=== PATIENT | female | born 1960 | race Caucasian/White ===

== ENCOUNTER 2016-10-06 23:50 | Observation (INO) | payer OTHER ==
[2016-10-07] VITALS: BMI 30.9
--- NOTE | 2016-10-07 00:30 | PDOC ---
History of Present Illness - General Chief Complaint: Syncope/Near Syncope Stated Complaint: SYNCOPE Time Seen by Provider: 10/06/16 23:58 History Source: Patient Exam Limitations: No Limitations - History of Present Illness Initial Comments: 10/07/16 02:30 56-year-old female with a history of asthma, [place], CVA, COPD, borderline diabetes , and hypertension biba with her daughter who states patient had a witnessed syncopal episode by her son which lasted approximately 15-30 seconds. Patient states while she was sitting on a chair and talking to her son, she felt dizzy/( room spinning) which caused a syncopal episode. Patient cannot recollect a syncopal episode but denies any fever, chills, nausea/vomiting, diarrhea, neck pains, headache, lightheadedness, weakness, chest pain, shortness of breath, abdominal pains, extremity numbness or tingling sensation. Presenting Symptoms: Dizziness, Syncope Past History - Past Medical History Allergies/Adverse Reactions: Allergies Allergy/AdvReac Type Severity Reaction Status Date / Time No Known Allergies Allergy Verified 10/07/16 00:01 Home Medications: Ambulatory Orders Aspirin 325 mg PO DAILY 11/22/12 Simvastatin [Zocor -] 20 mg PO HS 11/22/12 Beclomethasone Dipropionate [Qvar] 8.7 gm IH BID 03/24/14 Tiotropium [place] [Spiriva] 1 inh PO DAILY 03/24/14 Metoprolol Succinate [Toprol Xl] 50 mg PO DAILY 01/09/16 Albuterol 0.083% Nebulizer Janina [Ventolin 0.083% Nebulizer Soln -] 1 neb NEB Q6H #30 vial 01/10/16 Albuterol Sulfate Inhaler - [Ventolin HFA Inhaler -] 2 inh IH Q6H #1 inh Asthma: Yes Cardiac Disorders: Yes ([place]) CVA: Yes COPD: Yes Diabetes: Yes (BORDERLINE) HTN: Yes - Surgical History Abdominal Surgery: No Appendectomy: No Cardiac Surgery: No Cholecystectomy: No - Psycho/Social/Smoking Cessation Hx Anxiety: No Suicidal Ideation: No Smoking Status: Yes Smoking History: Former smoker Have you smoked in the past 12 months: Yes Number of Cigarettes Smoked Daily: 0 If you are a former smoker, when did you quit?: 6 months ago Information on smoking cessation initiated: No Hx Alcohol Use: No Drug/Substance Use Hx: No Substance Use Type: None Hx Substance Use Treatment: No Review of Systems - Review of Systems Able to Perform ROS?: Yes Comments:: 10/07/16 02:34 CONSTITUTIONAL: Absent: fever, chills, diaphoresis, generalized weakness, malaise, loss of appetite HEENT: Absent: rhinorrhea, nasal congestion, throat pain, throat swelling, difficulty swallowing, mouth swelling, ear pain, eye pain, visual Changes CARDIOVASCULAR: Absent: chest pain, loss of consciousness, palpitations, irregular heart rate, peripheral edema RESPIRATORY: Absent: cough, shortness of breath, dyspnea with exertion, orthopnea, wheezing, stridor, hemoptysis GASTROINTESTINAL: Absent: abdominal pain, abdominal distension, nausea, vomiting, diarrhea, constipation, melena, hematochezia GENITOURINARY: Absent: dysuria, frequency, urgency, hesitancy, hematuria, flank pain, genital pain MUSCULOSKELETAL: Absent: myalgia, arthralgia, joint swelling SKIN: Absent: rash, itching, pallor HEMATOLOGIC/IMMUNOLOGIC: Absent: easy bleeding, easy bruising, lymphadenopathy, frequent infections ENDOCRINE: Absent: unexplained weight gain, unexplained weight loss, heat intolerance, cold intolerance NEUROLOGIC: Absent: headache, focal weakness or paresthesias, dizziness, unsteady gait, seizure, mental status changes, bladder or bowel incontinence PSYCHIATRIC: Absent: anxiety, depression, suicidal or homicidal ideation, hallucinations. \ Is the patient limited Indonesian proficient: No *Physical Exam - Vital Signs Last Vital Signs Temp Pulse Resp BP Pulse Ox 98 F 83 18 97/61 95 10/06/16 23:59 10/07/16 02:35 10/07/16 02:35 10/07/16 02:35 10/07/16 02:35 - Physical Exam Comments: 10/07/16 02:36 GENERAL: Well developed, well nourished. Awake and alert. No acute distress. HEENT: Normocephalic, atraumatic. PERRLA, EOMI. No conjunctival pallor. Sclera are non- icteric. Moist mucous membranes. Oropharynx is clear. NECK: Supple. Full ROM. No JVD. Carotid pulses 2+ and symmetric, without bruits. No thyromegaly. No lymphadenopathy. CARDIOVASCULAR: Regular rate and rhythm. No murmurs, rubs, or gallops. Distal pulses are 2+ and symmetric. PULMONARY: No evidence of respiratory distress. Lungs clear to auscultation bilaterally. No wheezing, rales or rhonchi. ABDOMINAL: Soft. Non-tender. Non-distended. No rebound or guarding. No organomegaly. Normoactive bowel sounds. MUSCULOSKELETAL Normal range of motion at all joints. No bony deformities or tenderness. No CVA tenderness. EXTREMITIES: No cyanosis. No clubbing. No edema. No calf tenderness. SKIN: Warm and dry. Normal capillary refill. No rashes. No jaundice. NEUROLOGICAL: Alert, awake, appropriate. Cranial nerves 2-12 intact. No deficits to light touch and temperature in face, upper extremities and lower extremities. No motor deficits in the in face, upper extremities and lower extremities. Normoreflexic in the upper and lower extremities. Normal speech. Toes are down- going bilaterally. Gait is normal without ataxia. PSYCHIATRIC: Cooperative. Good eye contact. Appropriate mood and affect. Heart Score/ECG Review - History History: Slightly suspicious - Electrocardiogram EKG: Normal - Age Age: >/= 65 - Risk Factors Based on the list above the patient has:: No risk factors known - Troponin Troponin: </= normal limit - Score Heart Score - Total: 2 ED Treatment Course - LABORATORY CBC & Chemistry Diagram: 10/07/16 00:30 10/07/16 00:30 - ADDITIONAL ORDERS Additional order review: Laboratory Results 10/07/16 00:30 Sodium 140 Potassium 4.0 Chloride 105 Carbon Dioxide 24 Anion Gap 11 BUN 19 H D Creatinine 1.2 H D Creat Clearance w eGFR 46.82 Random Glucose 117 H Calcium 8.4 L Total Bilirubin 0.4 D AST 11 L D ALT 19 Alkaline Phosphatase 152 H Creatine Kinase 53 Troponin I < 0.02 Total Protein 6.4 Albumin 3.5 10/07/16 00:30 RBC 4.97 MCV 88.2 MCHC 32.7 RDW 14.3 MPV 8.4 Neutrophils % 73.5 Lymphocytes % 17.7 Monocytes % 7.2 Eosinophils % 1.0 Basophils % 0.6 - RADIOLOGY Radiology Studies Ordered: Category Date Time Status HEAD CT WITHOUT CONTRAST [CT] Stat CT Scan 10/07/16 00:30 Taken CHEST PA & LAT [RAD] Stat Radiology 10/07/16 00:38 Taken Radiograph Interpretation: 10/07/16 01:41 CT head w/o contrast: Normal brain. No acute intracranial abnormality. No hemorrhage. No visible infarct or mass. Osseous structures are intact. - Medications Given in the ED: ED Medications Discontinued Medications Generic Name Dose Route Start Last Admin Trade Name Freq PRN Reason Stop Dose Admin Sodium Chloride 1,000 mls @ 1,000 mls/hr 10/07/16 01:42 10/07/16 01:00 Normal Saline - IV 10/07/16 02:41 1,000 mls/hr ASDIR STA Administration Progress Note - Progress Note Progress Note: 0235hrs: Microblogged Hospitalist/ will consult for observation admit Pt's PMD is Dr. Jen Day. Does not have privileges here *DC/Admit/Observation/Transfer Diagnosis at time of Disposition: Syncope Qualifiers: Syncope type: unspecified Qualified Code(s): R55 - Syncope and collapse - Discharge Dispostion Condition at time of disposition: Guarded Admit: Yes Decision to Admit order Date/Time: Decision to Admit Order Category Date Time Status Decision to Admit to Hospital Routine Admission 10/07/16 03:51 Active
[2016-10-07 00:42] LABS: BASOPHIL 0.6 % (0-2.0); MCH 28.8 pg (25.7-33.7); MCHC 32.7 g/dl (32.0-36.0); MEAN CELL VOLUME 88.2 fl (80-96); MEAN PLT VOLUME 8.4 fl (7.5-11.1); NEUTROPHILS 73.5 % (42.8-82.8); PLATELET COUNT 283 K/MM3 (134-434); RDW 14.3 % (11.6-15.6)
--- NOTE | 2016-10-07 01:02 | PDOC ---
*Physical Exam - Vital Signs Last Vital Signs Temp Pulse Resp BP Pulse Ox 98 F 95 H 20 102/68 99 10/06/16 23:59 10/06/16 23:59 10/06/16 23:59 10/06/16 23:59 10/06/16 23:59 Heart Score/ECG Review #1 ECG reviewed & interpreted by me at: 01:01 General ECG Interpretation: Sinus Rhythm, Normal Rate, Normal Intervals, No acute ischemic changes ED Treatment Course - LABORATORY CBC & Chemistry Diagram: 10/07/16 10:20 10/07/16 10:20 - ADDITIONAL ORDERS Additional order review: 10/07/16 00:30 RBC 4.97 MCV 88.2 MCHC 32.7 RDW 14.3 MPV 8.4 Neutrophils % 73.5 Lymphocytes % 17.7 Monocytes % 7.2 Eosinophils % 1.0 Basophils % 0.6 Medical Decision Making - Medical Decision Making 10/07/16 01:01 56 yo F s/p syncopal event Pt seen by Midlevel Provider under my direct supervision Will do labs, EKG, CT Low threshold to admit *DC/Admit/Observation/Transfer Diagnosis at time of Disposition: Syncope - Discharge Dispostion Condition at time of disposition: Fair - Prescriptions
[2016-10-07 01:10] LABS: ALBUMIN 3.5 g/dl (3.4-5.0); ANION GAP 11 (8-16); BILIRUBIN,TOTAL 0.4 mg/dL (0.2-1.0); CALCIUM 8.4 mg/dL (8.5-10.1); CO2 24 mmol/L (21-32); COCKROFT - GAULT 67.1585; CREATININE 1.2 mg/dL (0.55-1.02); GLUCOSE,RANDOM 117 mg/dL (74-106); SGOT/AST 11 U/L (15-37); SGPT/ALT 19 U/L (12-78); TOT PROT 6.4 g/dl (6.4-8.2)
[2016-10-07 01:12] LABS: ALK PHOS 152 U/L (45-117); TROPONIN I < 0.02 ng/ml (0.00-0.05)
[2016-10-07] MEDS ORDERED: SODIUM CHLORIDE 1,000 ML IV STA (01:42)
[2016-10-07] MEDS ORDERED: ALBUTEROL SO4 0.083% IH SOL 2.5 MG/3 ML VIAL.NEB. NEB PRN (07:11)
--- NOTE | 2016-10-07 09:41 | HP ---
Admitting History and Physical - Primary Care Physician PCP: Carol Day - Admission Chief Complaint: syncope History of Present Illness: passed out. Hot day yesterday, was at a baseball game in afternoon. had one beer around 1 pm, little dinner. was sitting at the dining room table around 10 pm, got up to get some sprite from the fridge. became lightheaded, nauseated and felt like she was going to pass out. sat down again and slumped over, passed out for about 15 seconds. no seizure activities, no incontinence. denies chest pain palpitations or extremity weakness, numbness before or after. feels well now. in er low BP SBP 92 History Source: Patient Limitations to Obtaining History: No Limitations - Past Medical History Cardiovascular: Yes: HTN, Hyperlipdemia Pulmonary: Yes: COPD - Past Surgical History Additional Past Surgical History: right forearm nevus removal - Smoking History Smoking history: Former smoker Have you smoked in the past 12 months: Yes Aproximately how many cigarettes per day: 0 If you are a former smoker, when did you quit?: 6 months ago - Alcohol/Substance Use Hx Alcohol Use: Yes - Social History Usual Living Arrangement: Yes: With Child ADL: Independent History of Recent Travel: No Home Medications - Allergies Allergies/Adverse Reactions: Allergies Allergy/AdvReac Type Severity Reaction Status Date / Time No Known Allergies Allergy Verified 10/07/16 00:01 - Home Medications Home Medications: Ambulatory Orders Aspirin 325 mg PO DAILY 11/22/12 Simvastatin [Zocor -] 20 mg PO HS 11/22/12 Beclomethasone Dipropionate [Qvar] 8.7 gm IH BID 03/24/14 Tiotropium [place] [Spiriva] 1 inh PO DAILY 03/24/14 Metoprolol Succinate [Toprol Xl] 50 mg PO DAILY 01/09/16 Albuterol 0.083% Nebulizer Jan[place] [Ventolin 0.083% Nebulizer Soln -] 1 neb NEB Q6H #30 vial 01/10/16 Albuterol Sulfate Inhaler - [Ventolin HFA Inhaler -] 2 inh IH Q6H #1 inh Review of Systems - Review of Systems Constitutional: reports: No Symptoms Eyes: reports: No Symptoms HENT: reports: No Symptoms Neck: reports: No Symptoms Cardiovascular: reports: No Symptoms Respiratory: reports: No Symptoms Gastrointestinal: reports: No Symptoms Genitourinary: reports: No Symptoms Musculoskeletal: reports: No Symptoms Integumentary: reports: No Symptoms Neurological: reports: No Symptoms Endocrine: reports: No Symptoms Hematology/Lymphatic: reports: No Symptoms Psychiatric: reports: No Symptoms Physical Examination Vital Signs: Vital Signs Temperature 98 F 10/06/16 23:59 Pulse Rate 83 10/07/16 02:35 Respiratory Rate 18 10/07/16 02:35 Blood Pressure 97/61 10/07/16 02:35 O2 Sat by Pulse Oximetry (%) 95 10/07/16 02:35 Constitutional: Yes: Well Nourished, No Distress, Obese Eyes: Yes: Conjunctiva Clear, EOM Intact HENT: Yes: Normocephalic Neck: Yes: Trachea Midline Cardiovascular: Yes: Regular Rate and Rhythm. No: Murmur Respiratory: Yes: CTA Bilaterally Gastrointestinal: Yes: Normal Bowel Sounds, Soft Musculoskeletal: Yes: WNL Extremities: Yes: WNL Edema: No Peripheral Pulses WNL: Yes Neurological: Yes: WNL Labs: Laboratory Tests 10/07/16 10/07/16 00:30 00:30 WBC 13.0 H RBC 4.97 Hgb 14.3 Hct 43.8 MCV 88.2 MCHC 32.7 RDW 14.3 Plt Count 283 D MPV 8.4 Neutrophils % 73.5 Lymphocytes % 17.7 Monocytes % 7.2 Eosinophils % 1.0 Basophils % 0.6 Sodium 140 Potassium 4.0 Chloride 105 Carbon Dioxide 24 Anion Gap 11 BUN 19 H D Creatinine 1.2 H D Creat Clearance w eGFR 46.82 Random Glucose 117 H Calcium 8.4 L Total Bilirubin 0.4 D AST 11 L D ALT 19 Alkaline Phosphatase 152 H Creatine Kinase 53 Troponin I < 0.02 Total Protein 6.4 Albumin 3.5 Imaging - Results Chest X-ray: Report Reviewed EKG: Report Reviewed Problem List - Problems (1) Syncope Code(s): R55 - SYNCOPE AND COLLAPSE Qualifiers: Syncope type: vasovagal syncope Qualified Code(s): R55 - Syncope and collapse (2) Vaso vagal episode Code(s): R55 - SYNCOPE AND COLLAPSE (3) COPD (chronic obstructive pulmonary disease) Code(s): J44.9 - CHRONIC OBSTRUCTIVE PULMONARY DISEASE, UNSPECIFIED Qualifiers : COPD type: unspecified COPD Qualified Code(s): J44.9 - Chronic obstructive pulmonary disease, unspecified (4) HTN (hypertension) Code(s): I10 - ESSENTIAL (PRIMARY) HYPERTENSION Qualifiers: Hypertension type: essential hypertension Qualified Code(s): I10 - Essential (primary) hypertension Assessment/Plan sounds like vasovagal episode after hot day with mild dehydration received fluids in er with good results hold BP meds today resume lisinopril tomorrow if second set of card.enzymes normal; may dc home today with close f/up for echo with tomorrow am
[2016-10-07] MEDS ORDERED: ASPIRIN 325 MG TABLET PO SCH (10:00)
[2016-10-07 10:25] LABS: MCH 29.2 pg (25.7-33.7); MCHC 32.9 g/dl (32.0-36.0); MEAN CELL VOLUME 88.7 fl (80-96); MEAN PLT VOLUME 8.5 fl (7.5-11.1); PLATELET COUNT 264 K/MM3 (134-434); RDW 14.1 % (11.6-15.6); WHITE BLOOD COUNT 9.7 K/mm3 (4.0-10.0)
[2016-10-07 10:38] LABS: EOSINOPHIL 0.9 % (0-4.5)
[2016-10-07 10:58] LABS: ALBUMIN 3.7 g/dl (3.4-5.0); ANION GAP 7 (8-16); BILIRUBIN,TOTAL 0.6 mg/dL (0.2-1.0); CALCIUM 8.8 mg/dL (8.5-10.1); CO2 26 mmol/L (21-32); CREATININE 0.9 mg/dL (0.55-1.02); GLUCOSE,RANDOM 95 mg/dL (74-106); SGOT/AST 14 U/L (15-37); SGPT/ALT 17 U/L (12-78); TOT PROT 6.9 g/dl (6.4-8.2)
[2016-10-07 11:01] LABS: ALK PHOS 156 U/L (45-117); TROPONIN I < 0.02 ng/ml (0.00-0.05)
[2016-10-07 11:44] VITALS: BP 119/62; PULSE 83; TEMP 97.8
--- NOTE | 2016-10-08 00:08 | EKG ---
Test Reason : Blood Pressure : / mmHG Vent. Rate : 087 BPM Atrial Rate : 087 BPM P-R Int : 156 ms QRS Dur : 078 ms QT Int : 374 ms P-R-T Axes : 075 053 061 degrees QTc Int : 450 ms NORMAL SINUS RHYTHM NORMAL ECG WHEN COMPARED WITH ECG OF 09-JAN-2016 21:20, NO SIGNIFICANT CHANGE WAS FOUND Confirmed by ZAKIA MULTANI MD ([id number]) on 10/08/2016 12:08:22 AM Referred By: Confirmed By:ZAKIA MULTANI MD
== END 2016-10-07 11:45 | disposition home or self-care (01) ==
LOC: JER 23:50 → JERBED 10-07 03:51 → UNDOADMOB 10-07 04:01
PROVIDERS: ADMIT Internal Medicine; ATTEND Internal Medicine
PROC: 3E0337Z Introduction of Electrolytic and Water Balance Substance into Peripheral Vein, Percutaneous Approach (ICD-10-PCS; principal; 2016-10-07)
PROC: 3E0F7GC Introduction of Other Therapeutic Substance into Respiratory Tract, Via Natural or Artificial Opening (ICD-10-PCS; 2016-10-07)
DX: R55 Syncope and collapse (principal); J44.9 Chronic obstructive pulmonary disease, unspecified; I10 Essential (primary) hypertension; E78.5 Hyperlipidemia, unspecified; Z87.891 Personal history of nicotine dependence; Z79.82 Long term (current) use of aspirin; I25.2 Old myocardial infarction; Z86.73 Personal history of transient ischemic attack (TIA), and cerebral infarction without residual deficits; R73.03 Prediabetes
CPT/HCPCS: 36415; 70450-TC; 71020-TC; 80053; 82550; 84484; 85025; 93005; 93010; 99285-25; G0378

== ENCOUNTER 2017-04-18 22:42 | Observation (INO) | payer OTHER ==
[2017-04-18 23:06] VITALS: BMI 29.6
--- NOTE | 2017-04-18 23:09 | PDOC ---
History of Present Illness - General Chief Complaint: Injury Stated Complaint: Fall Time Seen by Provider: 04/18/17 22:54 - History of Present Illness Initial Comments: 04/18/17 23:28 The patient is a 57 year old female with a history of HTN, COPD, borderline diabetes who presents for evaluation following a syncopal episode. The patient is accompanied by her daughters who assist in providing the history. They report that the patient has been having "fainting spells" over the past several months in addition to the patient being more forgetful. They state that her symptoms are currently being worked up on an outpatient basis by her primary care provider. They state that the patient fell yesterday due to one of these "fainting spells" with head trauma noted. They did not go to the ER at that time for evaluation. She was seen by her outpatient docs today for a carotid doppler and echocardiogram which was reportedly normal. She is scheduled for MRI and possible EEG tomorrow. The daughters report that about 2 hours ago, the patient began complaining of seeing "fuzzy white spots" in her vision as well as bubbling of the window which prompting her presentation to the ED today. Her daughters report that throughout this episode, the patient appeared very pale. She denies fevers, chills, sob, chest pain, numbness, weakness, nausea, vomiting, abdominal pain, or changes with urination or bowel movements. Past History - Past Medical History Allergies/Adverse Reactions: Allergies Allergy/AdvReac Type Severity Reaction Status Date / Time No Known Allergies Allergy Verified 04/18/17 22:56 Home Medications: Ambulatory Orders Aspirin 325 mg PO DAILY 11/22/12 Simvastatin [Zocor -] 20 mg PO HS 11/22/12 Tiotropium [place] [Spiriva] 1 inh PO DAILY 03/24/14 Albuterol 0.083% Nebulizer Jan[place] [Ventolin 0.083% Nebulizer Soln -] 1 neb NEB Q6H #30 vial 01/10/16 Albuterol Sulfate Inhaler - [Ventolin HFA Inhaler -] 2 inh IH Q6H #1 inh Metoprolol Tartrate [Lopressor -] 50 mg PO BID 04/19/17 Salmeterol/Fluticasone [Advair 500Mcg/50Mcg] 1 inh PO BID 11/10/17 Zolpidem Tartrate [Ambien] 10 mg PO HS 04/19/17 Asthma: Yes Cardiac Disorders: Yes ([place]) CVA: Yes COPD: Yes Diabetes: Yes ([place]ORDER[place]) HTN: Yes - Surgical History Abdominal Surgery: No Appendectomy: No Cardiac Surgery: No Cholecystectomy: No - Suicide/Smoking/Psychosocial Hx Smoking Status: Yes Smoking History: Never smoked Have you smoked in the past 12 months: No Number of Cigarettes Smoked Daily: 0 If you are a former smoker, when did you quit?: 6 months ago Information on smoking cessation initiated: No Hx Alcohol Use: No Drug/Substance Use Hx: No Substance Use Type: None Hx Substance Use Treatment: No Review of Systems - Review of Systems Comments:: 04/18/17 23:35 Constitutional: No fevers, chills, fatigue, malaise HEENT: No Rhinorrhea, nasal congestion, visual changes Cardiovascular: Syncope. No chest pain, palpitations, lightheadedness Respiratory: No Cough, SOB, Hemoptysis, Gastrointestinal: No Abdominal pain, Nausea, Vomiting, Constipation, Diarrhea, Melena Genitourinary: No Dysuria, Frequency, Urgency, Hesitancy, Hematuria, Flank pain Musculoskeletal: No Myalgia, arthralgia Skin: No rashes, bruising, pallor Neurologic: No Headache, Dizziness, Numbness, Weakness, or Tingling Psychiatric: Visual hallucinations. No SI or HI *Physical Exam - Vital Signs Last Vital Signs Temp Pulse Resp BP Pulse Ox 97.9 F 108 H 18 126/50 99 04/18/17 22:54 04/18/17 22:54 04/18/17 22:54 04/18/17 22:54 04/18/17 22:54 - Physical Exam Comments: 04/18/17 23:39 General Appearance: Nourished. No Apparent Distress HEENT: EOMI, KELVIN. No Pharyngeal Erythema, Tonsillar Exudate, Tonsillar Erythema Neck: No Cervical Lymphadenopathy Respiratory/Chest: Lungs Clear, Normal Breath Sounds. No Crackles, Rales, Rhonchi, Wheezing Cardiovascular: Regular Rhythm, Regular Rate. No Murmur, Gallops, Rubs Gastrointestinal/Abdominal: Normal Bowel Sounds, Soft. No Guarding, Rebound, Tenderness Musculoskeletal: No CVA Tenderness Extremity: Normal Capillary Refill Integumentary: Normal Color, Dry, Warm Neurologic: bulk fluids handler II-XII NML intact, Fully Oriented, Alert, Normal Mood/Affect, Normal Response, Motor Strength 5/5. ED Treatment Course - LABORATORY CBC & Chemistry Diagram: 04/19/17 00:35 04/19/17 00:35 Medical Decision Making - Medical Decision Making 04/18/17 23:43 The patient is a 57 year old female with a history of HTN, COPD, borderline diabetes who presents for evaluation following a syncopal episode. Differential includes but is not limited to: Intracranial bleed, acs, fracture, infectious, metabolic derangement. Given the patient's recent history of a fall , we will obtain a head and neck CT to evaluate for intracranial process and fractures. The patient describes visual hallucinations which is concerning for a cerebral process and requires further evaluation. She states that she has MRI scheduled for tomorrow. However, given her syncopal episode we will obtain a cbc, cmp, troponin, ekg and chest plain film to evaluate for other etiologies. She will likely require observation admission given her concerning symptoms of visual hallucinations in the setting of a recent head trauma. We will continue to monitor and reassess. 04/19/17 01:38 Ct head and neck were negative for acute processes as preliminarily read by the supervisor aluminum fabrication radiologist pending official radiology read. CBC is unremarkable. Troponin is negative. We discussed the case with Dr. Day who agreed with observation admission and accepted the patient. We discussed the plan with the patient who voiced understanding and is agreeable. *DC/Admit/Observation/Transfer Diagnosis at time of Disposition: Syncope Qualifiers: Syncope type: unspecified Qualified Code(s): R55 - Syncope and collapse - Discharge Dispostion Condition at time of disposition: Stable Admit: Yes - Referrals - Patient Instructions - Post Discharge Activity
--- NOTE | 2017-04-18 23:27 | PDOC ---
Attending Attestation - Resident Resident Name: Qasim Garsia - ED Attending Attestation I have performed the following: I have examined & evaluated the patient, The case was reviewed & discussed with the resident, I agree w/resident's findings & plan, Exceptions are as noted - HPI HPI: 04/19/17 03:41 see below - Physicial Exam PE: 04/19/17 03:41 see below - Medical Decision Making 04/18/17 23:27 I, Dr. Stephanie Winn DO, attest that this document has been prepared under my direction and personally reviewed by me in its entirety. I further attest, that it accurately reflects all work, treatment, procedures and medical decision -making performed by me. 04/19/17 00:36 a/p: 57yo Female with 2 episodes of syncope, palpitations, now with visual hallucinations earlier tonight/confusion -labs, ct head, trop, ekg, cxr, ct cervical spine -has MRI scheduled for tomorrow -given recent hx of 2 syncopal episodes will need tele monitoring and observation for further eval. 04/19/17 00:56 Ct cervical spine is negative for acute fracture ct head: no acute intracranial findings <Stephanie Winn - Last Filed: 04/19/17 03:41> Discharge Disposition - Discharge Dispostion Last Admission D/C Date: 11/27/12 - Transfer to Acute Care Facility Transfer comment: 04/19/17 03:04 Documentation prepared by Letitia Mays, acting as resident medical officer for Stephanie Winn DO. <Letitia Mays - Last Filed: 04/19/17 02:54> <Stephanie Winn - Last Filed: 04/19/17 03:41> - Diagnosis Syncope Qualifiers: Syncope type: unspecified Qualified Code(s): R55 - Syncope and collapse - Discharge Dispostion Condition at time of disposition: Stable Heart Score/ECG Review - ECG Intrepretation Comment:: 04/19/17 00:38 sinus at 94, nl axis, nl interval, t wave inversions V1-2, no other acute changes <Stephanie Winn - Last Filed: 04/19/17 03:41> History of Present Illness - General History Source: Patient Exam Limitations: No Limitations - History of Present Illness Initial Comments: 04/19/17 02:58 The patient is a 57-year-old female, with a significant past medical history of HTN, COPD, borderline diabetes who was sent to the ED by her PCP, Dr. Shay Villarreal, for a workup for fainting spells x2. The patient had an echo yesterday that appeared to be normal. She has an MRI scheduled for today. She states that she syncopized while in the kitchen yesterday and hit her head in the left parietal region. She denies any loss of consciousness. Pt state that at the time of the incident she looked at the window and saw what she thought were white spots and "bubbling" of the window frame. The pt called her daughter to look at the window also but she did not see what her mom had seen. Pt was telling her daughter to clean her face because she had white spots. As per daughter, the patient has been more confused and disorientated lately. She has been experiencing slurred speech and she appears to be pale. The patient denies any fever, chills, nausea, vomiting, diarrhea, or abdominal pain. She denies any shortness of breath or chest pain. <Letitia Mays - Last Filed: 04/19/17 02:54> <Stephanie Winn - Last Filed: 04/19/17 03:41> - General Chief Complaint: Injury Stated Complaint: Fall Time Seen by Provider: 04/18/17 22:54 *Physical Exam - Vital Signs Last Vital Signs Temp Pulse Resp BP Pulse Ox 97.9 F 108 H 18 126/50 99 04/18/17 22:54 04/18/17 22:54 04/18/17 22:54 04/18/17 22:54 04/18/17 22:54 - Physical Exam Comments: 04/19/17 03:01 GENERAL: Awake, alert, and fully oriented, in no acute distress HEAD: No signs of trauma EYES: PERRLA, EOMI, sclera anicteric, conjunctiva clear ENT: Auricles normal inspection, hearing grossly normal, nares patent, oropharynx clear without exudates. Moist mucosa NECK: Normal ROM, supple, no lymphadenopathy, JVD, or masses LUNGS: Breath sounds equal, clear to auscultation bilaterally. No wheezes, and no crackles HEART: Regular rate and rhythm, normal S1 and S2, no murmurs, rubs or gallops ABDOMEN: Soft, nontender, normoactive bowel sounds. No guarding, no rebound. No masses EXTREMITIES: Normal range of motion, no edema. No clubbing or cyanosis. No cords, erythema, or tenderness NEUROLOGICAL: no visual hallucinations currently, 5/5 strength in the upper and lower extremities. Cranial nerves II through XII grossly intact. Normal speech, normal gait SKIN: Warm, Dry, normal turgor, no rashes or lesions noted <Letitia Mays - Last Filed: 04/19/17 02:54> *Review of Systems - Review of Systems Able to Perform ROS?: Yes Comments:: 04/19/17 02:56 GENERAL/CONSTITUTIONAL: No fever or chills. No weakness. HEAD, EYES, EARS, NOSE AND THROAT: No change in vision. No ear pain or discharge. No sore throat. CARDIOVASCULAR: No chest pain or shortness of breath. RESPIRATORY: No cough, wheezing, or hemoptysis. GASTROINTESTINAL: No nausea, vomiting, diarrhea or constipation. GENITOURINARY: No dysuria, frequency, or change in urination. MUSCULOSKELETAL: No joint or muscle swelling or pain. No neck or back pain. SKIN: No rash NEUROLOGIC: (+)Loss of consciousness, hallucinations, syncope. No headache, vertigo, or change in strength/sensation. ENDOCRINE: No increased thirst. No abnormal weight change. HEMATOLOGIC/LYMPHATIC: No anemia, easy bleeding, or history of blood clots. ALLERGIC/IMMUNOLOGIC: No hives or skin allergy. <Letitia Mays - Last Filed: 04/19/17 02:54>
[2017-04-19 00:49] LABS: BASOPHIL 0.6 % (0-2.0); EOSINOPHIL 0.9 % (0-4.5); MCH 29.5 pg (25.7-33.7); MCHC 33.9 g/dl (32.0-36.0); MEAN CELL VOLUME 86.9 fl (80-96); MEAN PLT VOLUME 9.3 fl (7.5-11.1); NEUTROPHILS 70.3 % (42.8-82.8); PLATELET COUNT 266 K/MM3 (134-434); RDW 14.3 % (11.6-15.6); WHITE BLOOD COUNT 10.6 K/mm3 (4.0-10.0)
[2017-04-19 00:54] LABS: URINE APPEARANCE SLCLOUDY; URINE BILIRUBIN NEGATIVE (NEGATIVE); URINE BLOOD 1+ (NEGATIVE); URINE COLOR YELLOW; URINE GLUCOSE (UA) NEGATIVE (NEGATIVE); URINE KETONE NEGATIVE (NEGATIVE); URINE NITRITE NEGATIVE (NEGATIVE); URINE PROTEIN NEGATIVE (NEGATIVE); URINE UROBILINOGEN NEGATIVE mg/dL (0.2-1.0)
[2017-04-19 01:13] LABS: CPK 157 IU/L (26-192); TROPONIN I < 0.02 ng/ml (0.00-0.05)
[2017-04-19 01:18] LABS: URINE BACTERIA FEW /hpf (NONE SEEN); URINE RBC 4; URINE WBC 15
[2017-04-19 01:38] LABS: ALBUMIN 3.7 g/dl (3.4-5.0); ANION GAP 12 (8-16); CALCIUM 8.6 mg/dL (8.5-10.1); CO2 21 mmol/L (21-32); CREATININE 0.8 mg/dL (0.55-1.02); GLUCOSE,RANDOM 100 mg/dL (74-106); SGPT/ALT 17 U/L (12-78)
[2017-04-19 01:40] LABS: ALK PHOS 128 U/L (45-117); BILIRUBIN,TOTAL 0.4 mg/dL (0.2-1.0)
[2017-04-19 01:51] LABS: SGOT/AST 15 U/L (15-37)
[2017-04-19 07:06] VITALS: BP 121/65; PULSE 81; TEMP 97.7
--- NOTE | 2017-04-19 08:48 | HP ---
Admitting History and Physical - Primary Care Physician PCP: Carol Day - Admission Chief Complaint: visual disturbance History of Present Illness: pt passed out 2 days ago on her kitchen floor-unprovoked, unclear etiology was dizzy afterwards, went to bed, woke up yesterday and went to see - had echo and carotid US-results pending but preliminarily unremarkable. when she went home she noted that things were "fuzzy", not blurry so she came to er to evaluate currently feels well, no problems denies alcohol or drug use, takes ambien daily for sleep History Source: Patient Limitations to Obtaining History: No Limitations - Past Medical History Cardiovascular: Yes: HTN, Hyperlipdemia Pulmonary: Yes: COPD (moderate-severe) - Smoking History Smoking history: Former smoker Have you smoked in the past 12 months: Yes Aproximately how many cigarettes per day: 0 If you are a former smoker, when did you quit?: 6 months ago - Alcohol/Substance Use Hx Alcohol Use: No - Social History ADL: Independent History of Recent Travel: No Home Medications - Allergies Allergies/Adverse Reactions: Allergies Allergy/AdvReac Type Severity Reaction Status Date / Time No Known Allergies Allergy Verified 04/18/17 22:56 - Home Medications Home Medications: Ambulatory Orders Aspirin 325 mg PO DAILY 11/22/12 Simvastatin [Zocor -] 20 mg PO HS 11/22/12 Tiotropium [place] [Spiriva] 1 inh PO DAILY 03/24/14 Albuterol 0.083% Nebulizer Janina [Ventolin 0.083% Nebulizer Soln -] 1 neb NEB Q6H #30 vial 01/10/16 Albuterol Sulfate Inhaler - [Ventolin HFA Inhaler -] 2 inh Q6H #1 inh Metoprolol Tartrate [Lopressor -] 50 mg PO BID 04/19/17 Salmeterol/Fluticasone [Advair 500Mcg/50Mcg] 1 inh PO BID 04/19/17 Zolpidem Tartrate [Ambien] 10 mg PO HS 04/19/17 Review of Systems - Review of Systems Constitutional: reports: No Symptoms Eyes: reports: No Symptoms HENT: reports: No Symptoms Neck: reports: No Symptoms Cardiovascular: reports: No Symptoms Respiratory: reports: No Symptoms Gastrointestinal: reports: No Symptoms Genitourinary: reports: No Symptoms Breasts: reports: No Symptoms Reported Musculoskeletal: reports: No Symptoms Integumentary: reports: No Symptoms Neurological: reports: No Symptoms Endocrine: reports: No Symptoms Hematology/Lymphatic: reports: No Symptoms Psychiatric: reports: No Symptoms Physical Examination Vital Signs: Vital Signs Temperature 97.7 F 04/19/17 07:05 Pulse Rate 81 04/19/17 07:05 Respiratory Rate 18 04/19/17 07:05 Blood Pressure 121/65 04/19/17 07:05 O2 Sat by Pulse Oximetry (%) 98 04/19/17 07:05 Constitutional: Yes: Well Nourished, No Distress, Calm Eyes: Yes: Conjunctiva Clear, EOM Intact HENT: Yes: Atraumatic, Normocephalic Neck: Yes: Supple, Trachea Midline Cardiovascular: Yes: Regular Rate and Rhythm Respiratory: Yes: CTA Bilaterally Gastrointestinal: Yes: Normal Bowel Sounds, Soft Musculoskeletal: Yes: WNL Extremities: Yes: WNL Edema: No Peripheral Pulses WNL: Yes Integumentary: Yes: WNL Neurological: Yes: WNL Psychiatric: Yes: WNL Labs: CBC, BMP 04/19/17 00:35 04/19/17 00:35 Imaging - Results Cat Scan: Report Reviewed (ct head and c spine unremarkable) EKG: Image Reviewed ( ekg) Problem List - Problems (1) Syncope Code(s): R55 - SYNCOPE AND COLLAPSE Qualifiers: Syncope type: vasovagal syncope Qualified Code(s): R55 - Syncope and collapse (2) COPD (chronic obstructive pulmonary disease) Code(s): J44.9 - CHRONIC OBSTRUCTIVE PULMONARY DISEASE, UNSPECIFIED Qualifiers: COPD type: unspecified COPD Qualified Code(s): J44.9 - Chronic obstructive pulmonary disease, unspecified (3) HTN (hypertension) Code(s): I10 - ESSENTIAL (PRIMARY) HYPERTENSION Qualifiers: Hypertension type: essential hypertension Qualified Code(s): I10 - Essential (primary) hypertension (4) Vaso vagal episode Code(s): R55 - SYNCOPE AND COLLAPSE Assessment/Plan possibly vasovagal with mild concussion afterwards eeg, mri brain if mri completed and reviewed pt may go home and f/up as outpt for further evaluation
[2017-04-19] MEDS ORDERED: ALBUTEROL SO4 0.083% IH SOL 2.5 MG/3 ML VIAL.NEB. NEB PRN (08:52)
[2017-04-19 08:56] LABS: URINE LEUK ESTERASE 1+ (NEGATIVE)
[2017-04-19] MEDS ORDERED: PATIENT'S OWN MEDICATION (NON-FORMULARY) (Salmeterol/Fluticasone [Advair 500mcg/50mcg -] 1 PO SCH (10:00)
[2017-04-19] MEDS ORDERED: ASPIRIN 325 MG TABLET PO SCH (10:00)
[2017-04-19] MEDS ORDERED: METOPROLOL TARTRATE 50 MG TABLET (FP) PO SCH (10:00)
[2017-04-19] MEDS ORDERED: BUDESONIDE/FORMETEROL FUMARATE 160/4.5 mcg INHALER IH SCH (10:00)
[2017-04-19] MEDS ORDERED: TIOTROPIUM BROMIDE 18 MCG/INH (DEVICE W/ 5 CAPSULES) IH SCH (10:00)
--- NOTE | 2017-04-19 11:10 | EKG ---
Test Reason : Blood Pressure : / mmHG Vent. Rate : 094 BPM Atrial Rate : 094 BPM P-R Int : 150 ms QRS Dur : 078 ms QT Int : 358 ms P-R-T Axes : 073 062 071 degrees QTc Int : 447 ms POOR DATA QUALITY, INTERPRETATION MAY BE ADVERSELY AFFECTED NORMAL SINUS RHYTHM NORMAL ECG WHEN COMPARED WITH ECG OF 07-OCT-2016 00:57, NO SIGNIFICANT CHANGE WAS FOUND Confirmed by BRAYDON HARTMANN MD ([id number]) on 04/19/2017 11:09:51 AM Referred By: Confirmed By:BRAYDON HARTMANN MD
[2017-04-19] MEDS ORDERED: ATORVASTATIN CA 10 MG TABLET (FP) PO SCH (22:00)
--- NOTE | 2017-04-21 15:03 | HOL ---
Hook-up date: 2017-04-19 13:28:00 Duration: 23:49:00 Test Indications: SYNCOPE Medications: [id number] QRS complexes 34 Ventricular ectopics which represent <1 % of total QRS comp. 8 Supraventricular ectopics which represent <1 % of total QRS comp. * Paced QRS complexs which represent % of total QRS comp. 1 % of Time Classified as Noise VENTRICULAR ECTOPY 28 Isolated 0 Bigeminal Cycles 3 Couplets 0 Runs 0 Beats in Runs * Beats LONGEST at * BPM at :: -- * Beats FASTEST at * BPM at :: -- SUPRAVENTRICULAR ECTOPY 6 Isolated 1 Couplets 0 Runs 0 Beats in Runs * Beats LONGEST at * BPM at :: -- * Beats FASTEST at * BPM at :: -- HEART RATES 64 MIN at 02:53:35 2017-04-20 94 AVG 129 MAX at 04:23:41 2017-04-20 LONGEST RR 1.120 secs at 02:53:33 2017-04-20 SCANNED BY: DEREK 04/21/17 BASIC RHYTHM WAS SINUS, WITH PERIODS OF SINUS ARRHYTHMIA WITH AN AVERAGE DAILY HEART RATE OF 94 BEATS PER MINUTE. RHYTHM WAS INTERRUPTED BY SINUS TACHYCARDIA. RATES VARIED BETWEEN 64 AND 129 BEATS PER MINUTE. RARE VENTRICULAR PREMATURE BEATS, RARELY SUCCESSIVE. RARE SUPRAVENTRICULAR PREMATURE BEATS, RARELY SUCCESSIVE. [facility] DID NOT REVEAL ANY SIGNIFICANT CHANGES DURING MONITORING. NO DIARY WAS SUBMITTED. Confirmed by SHEIKH LETTY, TITUS ([id number]), society editor DEREK EDGAR ([id number]) on 04/21/2017 3:02:44 PM Referred By: Jama STRONG Overread By: TITUS NAGEL MD
== END 2017-04-19 13:00 | disposition home or self-care (01) ==
LOC: JER 22:42 → JERBED 04-19 01:40 → UNDOADMOB 04-19 02:11
PROVIDERS: ADMIT Internal Medicine; ATTEND Internal Medicine
PROC: 3E0F7GC Introduction of Other Therapeutic Substance into Respiratory Tract, Via Natural or Artificial Opening (ICD-10-PCS; principal; 2017-04-19)
PROC: 3E0F7GC Introduction of Other Therapeutic Substance into Respiratory Tract, Via Natural or Artificial Opening (ICD-10-PCS; 2017-04-19)
DX: R55 Syncope and collapse (principal); I10 Essential (primary) hypertension; I25.2 Old myocardial infarction; R73.03 Prediabetes; J44.9 Chronic obstructive pulmonary disease, unspecified; J45.909 Unspecified asthma, uncomplicated; Z79.82 Long term (current) use of aspirin
CPT/HCPCS: 36415; 70450-TC; 70551-TC; 71020-TC; 72125-TC; 80053; 81003; 81015; 82550; 82553; 84484; 85025; 93005; 93010; 93225; 93226; 94640; 95816; 99285-25; G0378

== ENCOUNTER 2018-05-25 09:29 | Inpatient (IN) | payer OTHER ==
[2018-05-25] MEDS ORDERED: predniSONE 20 MG TABLET (UD) PO ONE (09:34)
--- NOTE | 2018-05-25 09:34 | PDOC ---
History of Present Illness - General Chief Complaint: Asthma Stated Complaint: ASTHMA Time Seen by Provider: 05/25/18 09:30 History Source: Patient Exam Limitations: No Limitations - History of Present Illness Initial Comments: 58 yo F history HTN, HL, COPD presents with persistent cough, SOB, wheezing for the past 1 week. She states she has been taking her inhalers and nebs without improvement. Denies recent steroid use. No recent antibiotics. Denies fever, sick contacts. She has moderate chest soreness that is worse with cough, improves with rest. Past History - Past Medical History Allergies/Adverse Reactions: Allergies Allergy/AdvReac Type Severity Reaction Status Date / Time No Known Allergies Allergy Verified 05/25/18 09:57 Home Medications: Ambulatory Orders Aspirin 325 mg PO Q48H 11/22/12 Simvastatin [Zocor -] 20 mg PO HS 11/22/12 Tiotropium [place] [Spiriva] 1 inh PO DAILY 03/24/14 Albuterol 0.083% Nebulizer Janina [Ventolin 0.083% Nebulizer Soln -] 1 neb NEB Q6H #30 vial 01/10/16 Albuterol Sulfate Inhaler - [Ventolin HFA Inhaler -] 2 inh IH Q6H #1 inh Metoprolol Tartrate [Lopressor -] 50 mg PO BID 04/19/17 Salmeterol/Fluticasone [Advair 500Mcg/50Mcg -] 1 inh PO BID 04/19/17 Zolpidem Tartrate [Ambien] 10 mg PO HS PRN #0 tab 04/19/17 Aclidinium [place] [Tudorza [place]] 400 mcg IH BID 05/25/18 Asthma: Yes Cardiac Disorders: Yes ([place]) CVA: Yes COPD: Yes Diabetes: Yes (BORDERLINE) HTN: Yes - Surgical History Abdominal Surgery: No Appendectomy: No Cardiac Surgery: No Cholecystectomy: No - Immunization History Immunization Up to Date: Yes - Suicide/Smoking/Psychosocial Hx Smoking Status: Yes Smoking History: Former smoker Have you smoked in the past 12 months: Yes Number of Cigarettes Smoked Daily: 0 If you are a former smoker, when did you quit?: 6 months ago Hx Alcohol Use: Yes Drug/Substance Use Hx: No Substance Use Type: None Hx Substance Use Treatment: No Review of Systems - Review of Systems Able to Perform ROS?: Yes Comments:: GENERAL/CONSTITUTIONAL: No fever or chills. No weakness. HEAD, EYES, EARS, NOSE AND THROAT: No change in vision. No ear pain or discharge. +Congestion and sore throat. CARDIOVASCULAR: No chest pain or shortness of breath. RESPIRATORY: + Cough and wheezing. No hemoptysis. GASTROINTESTINAL: No nausea, vomiting, diarrhea or constipation. GENITOURINARY: No dysuria, frequency, or change in urination. MUSCULOSKELETAL: No joint or muscle swelling or pain. No neck or back pain. SKIN: No rash NEUROLOGIC: No headache, vertigo, loss of consciousness, or change in strength/ sensation. ENDOCRINE: No increased thirst. No abnormal weight change. HEMATOLOGIC/LYMPHATIC: No anemia, easy bleeding, or history of blood clots. ALLERGIC/IMMUNOLOGIC: No hives or skin allergy. *Physical Exam - Physical Exam Comments: GENERAL: Awake, alert, and fully oriented, in no acute distress HEAD: No signs of trauma EYES: PERRLA, EOMI, sclera anicteric, conjunctiva clear ENT: Auricles normal inspection, hearing grossly normal, nares patent, oropharynx clear without exudates. Moist mucosa NECK: Normal ROM, supple, no lymphadenopathy, JVD, or masses LUNGS: Dec air entry B/L with diffuse exp wheezes. Speaking full sentences. HEART: Regular rate and rhythm, normal S1 and S2, no murmurs, rubs or gallops ABDOMEN: Soft, nontender, normoactive bowel sounds. No guarding, no rebound. No masses EXTREMITIES: Normal range of motion, no edema. No clubbing or cyanosis. No cords, erythema, or tenderness NEUROLOGICAL: Cranial nerves II through XII grossly intact. Normal speech, normal gait SKIN: Warm, Dry, normal turgor, no rashes or lesions noted. ED Treatment Course - LABORATORY CBC & Chemistry Diagram: 05/25/18 12:20 05/25/18 12:20 Medical Decision Making - Medical Decision Making 05/25/18 11:05 Pt reports improvement and lung sounds have improved. however, her O2Sat is 90- 91 now, was previously 94. Will observe in the ED for improvement. 05/25/18 12:07 While patient reports some improvement, she is still having episodes of coughing with SOB and is noted to have low O2Sat. Her baseline is higher from prior visits. Will place IV and give mag, fluids. 05/25/18 13:41 O2 Sat has not significantly improved despite the additional medication. Paged Dr. Sosa for admission, awaiting callback. 05/25/18 14:03 D/w Dr. Day, agrees with admission, however, he does not admit to [facility]. I have contacted the hospitalist via [employer]. 05/25/18 15:08 Case d/w hospitalist AZIZA Mcintyre, accepted for admission. *DC/Admit/Observation/Transfer Diagnosis at time of Disposition: Bronchitis - Discharge Dispostion Condition at time of disposition: Stable Decision to Admit order: Yes - Referrals Referrals: Carol Day MD [Primary Care Provider] - - Patient Instructions - Post Discharge Activity
[2018-05-25] MEDS: ALBUTEROL SO4 2.5/IPRATROPIUM 0.5 INH SOL 3 ML VIAL.NEB. NEB SCH ×6 (09:35→19:53)
[2018-05-25] MEDS ORDERED: AZITHROMYCIN 500 MG TABLET PO ONE (09:35)
[2018-05-25] MEDS ORDERED: ALBUTEROL SO4 2.5/IPRATROPIUM 0.5 INH SOL 3 ML VIAL.NEB. NEB ONE (09:35)
[2018-05-25] MEDS ORDERED: guaiFENesin/CODEINE 10 ML UNIT-DOSE CUPS PO ONE (09:48)
[2018-05-25] MEDS ORDERED: guaiFENesin/CODEINE 10 ML UNIT-DOSE CUPS ONE (09:51)
[2018-05-25] MEDS ORDERED: AZITHROMYCIN 500 MG TABLET ONE (09:51)
[2018-05-25] MEDS ORDERED: predniSONE 20 MG TABLET (UD) ONE (09:52)
[2018-05-25] MEDS ORDERED: SODIUM CHLORIDE 1,000 ML IV STA (12:03)
[2018-05-25] MEDS ORDERED: MAGNESIUM SULF 50% (8.12 MEQ/2 ML-1 GM VIAL) IVPB ONE (12:03)
[2018-05-25] MEDS ORDERED: MAGNESIUM SULF 50% (8.12 MEQ/2 ML-1 GM VIAL) ONE (12:04)
[2018-05-25 12:55] LABS: ALBUMIN 3.6 g/dl (3.5-5.0); ALK PHOS 128 U/L (32-92); ANION GAP 10 MMOL/L (8-16); BILIRUBIN,TOTAL 0.6 mg/dl (0.2-1.0); BLOOD UREA NITROGEN 13 mg/dl (7-18); CALCIUM 8.7 mg/dl (8.4-10.2); CHLORIDE 107 mmol/L (98-107); CO2 22 mmol/L (22-28); CREATININE 0.8 mg/dl (0.6-1.3); GLUCOSE,RANDOM 151 mg/dl (74-106); POTASSIUM 3.8 mmol/L (3.5-5.1); SGOT/AST 24 U/L (10-42); SGPT/ALT 20 U/L (10-40); SODIUM 139 mmol/L (136-145); TOT PROT 6.8 g/dl (6.4-8.3)
[2018-05-25 13:23] LABS: BASO % 0.3 % (0-2.0); EOS % 0.2 % (0-4.5); HEMATOCRIT 44.5 % (32.4-45.2); HEMOGLOBIN 14.5 GM/dl (10.7-15.3); LYMPH % 7.4 % (8-40); MCH 29.4 pg (25.7-33.7); MCHC 32.6 g/dl (32.0-36.0); MEAN CELL VOLUME 90.2 fl (80-96); MEAN PLT VOLUME 8.9 fl (7.5-11.1); MONO % 1.3 % (3.8-10.2); NEUT % 90.8 % (42.8-82.8); PLATELET COUNT 263 K/MM3 (134-434); RBC 4.93 M/mm3 (3.60-5.2); RDW 13.4 % (11.6-15.6); WHITE BLOOD COUNT 6.6 K/mm3 (4.0-10.8)
[2018-05-25] MEDS ORDERED: ACETAMINOPHEN 325 MG TABLET (FP) PO ONE (14:07)
[2018-05-25] MEDS ORDERED: ACETAMINOPHEN 325 MG TABLET (FP) ONE (14:09)
[2018-05-25] MEDS ORDERED: methylPREDNISolone NA SUCC 40 MG/1 ML VIAL IVPUSH SCH (15:00)
[2018-05-25 16:07] VITALS: BMI 27.6
[2018-05-25] MEDS: methylPREDNISolone NA SUCC 40 MG/1 ML VIAL IVPUSH SCH (17:44)
[2018-05-25] MEDS ORDERED: guaiFENesin/CODEINE 5 ML UNIT-DOSE CUPS PO PRN (20:17)
--- NOTE | 2018-05-25 21:20 | HP ---
CHIEF COMPLAINT: shortness of breath PCP: Shay HISTORY OF PRESENT ILLNESS: 58 yo F w/ asthma/copd, former tobacco smoker came with shortness of breath for the past week which worsened over the past 2 days. She reports that changes in weather (cold) trigger her reactive airway disease. She denied any recent smoking. No second hand smoke exposure mentioned. She takes inhalers every day. Denied overt chest pain. No sick contacts. ER course was notable for: (1) methylprednisone (2) cxr (3) Recent Travel: none PAST MEDICAL HISTORY: HTN, dyslipidemia, COPD/asthma PAST SURGICAL HISTORY: none Social History: Smoking: quit Alcohol: no Drugs: no Family History: no Allergies No Known Allergies Allergy (Verified 05/25/18 09:57) HOME MEDICATIONS: Home Medications Medication Instructions Recorded Aspirin 325 mg PO Q48H 11/22/12 Simvastatin [Zocor -] 20 mg PO HS 11/22/12 Tiotropium [place] [Spiriva] 1 inh PO DAILY 03/24/14 Albuterol 0.083% Nebulizer Janina 1 neb NEB Q6H #30 vial 01/10/16 [Ventolin 0.083% Nebulizer Soln -] Albuterol Sulfate Inhaler - 2 inh IH Q6H #1 inh 01/10/16 [Ventolin HFA Inhaler -] Metoprolol Tartrate [Lopressor -] 50 mg PO BID 04/19/17 Salmeterol/Fluticasone [Advair 1 inh PO BID 04/19/17 500Mcg/50Mcg -] Zolpidem Tartrate [Ambien] 10 mg PO HS PRN #0 tab 04/19/17 Aclidinium [place] [Tudorza 400 mcg IH BID 05/25/18 Pressair] REVIEW OF SYSTEMS CONSTITUTIONAL: Absent: fever, chills, diaphoresis, generalized weakness, malaise, loss of appetite, weight change HEENT: Absent: rhinorrhea, nasal congestion, throat pain, throat swelling, difficulty swallowing, mouth swelling, ear pain, eye pain, visual changes CARDIOVASCULAR: Absent: chest pain, syncope, palpitations, irregular heart rate, lightheadedness , peripheral edema RESPIRATORY: Present- cough, shortness of breath, dyspnea with exertion, wheezing Absent:, orthopnea, stridor, hemoptysis GASTROINTESTINAL: Absent: abdominal pain, abdominal distension, nausea, vomiting, diarrhea, constipation, melena, hematochezia GENITOURINARY: Absent: dysuria, frequency, urgency, hesitancy, hematuria, flank pain, genital pain MUSCULOSKELETAL: Absent: myalgia, joint swelling, back pain, neck pain Present -arthralgia, SKIN: Absent: rash, itching, pallor HEMATOLOGIC/IMMUNOLOGIC: Absent: easy bleeding, easy bruising, lymphadenopathy, frequent infections ENDOCRINE: Absent: unexplained weight gain, unexplained weight loss, heat intolerance, cold intolerance NEUROLOGIC: Absent: headache, focal weakness or paresthesias, dizziness, unsteady gait, seizure, mental status changes, bladder or bowel incontinence PSYCHIATRIC: Absent: anxiety, depression, suicidal or homicidal ideation, hallucinations. PHYSICAL EXAMINATION Vital Signs - 24 hr 05/25/18 05/25/18 05/25/18 09:29 09:57 10:30 Temperature 98.2 F Pulse Rate 110 H Pulse Rate [ 102 H Left Radial] Respiratory 30 H 22 H Rate Blood Pressure 158/96 Blood Pressure 132/78 [Right Arm] O2 Sat by Pulse 94 L 99 93 L Oximetry (%) 05/25/18 05/25/18 05/25/18 10:48 12:01 13:35 Temperature Pulse Rate 105 H 110 H Pulse Rate [ 118 H Left Radial] Respiratory 20 Rate Blood Pressure Blood Pressure [Right Arm] O2 Sat by Pulse 92 L 91 L 90 L Oximetry (%) 05/25/18 05/25/18 05/25/18 14:00 15:54 16:36 Temperature 98.1 F 98.2 F Pulse Rate 104 H 102 H Pulse Rate [ 101 H Left Radial] Respiratory 20 26 H Rate Blood Pressure 136/78 Blood Pressure 125/75 [Right Arm] O2 Sat by Pulse 90 L 90 L 95 Oximetry (%) 05/25/18 05/25/18 05/25/18 17:29 17:39 20:08 Temperature 97.8 F Pulse Rate 100 H Pulse Rate [ Left Radial] Respiratory 20 20 Rate Blood Pressure 115/78 Blood Pressure [Right Arm] O2 Sat by Pulse 95 95 Oximetry (%) GENERAL: Awake, alert, and fully oriented, in some respiratory distress HEAD: Normal with no signs of trauma, bi complexion EYES: Pupils equal, round and reactive to light, extraocular movements intact, sclera anicteric, conjunctiva clear. No lid lag. EARS, NOSE, THROAT: Ears normal, nares patent, oropharynx clear without exudates. Moist mucous membranes. NECK: Normal range of motion, supple without lymphadenopathy, JVD, or masses. LUNGS:decreased breath sounds b/l, minimal wheezing HEART: Regular rate and rhythm, normal S1 and S2 without murmur, rub or gallop. ABDOMEN: Soft, nontender, not distended, normoactive bowel sounds, no guarding, no rebound, no masses. No hepatomegaly or splenomegaly. MUSCULOSKELETAL: Normal range of motion at all joints. No bony deformities or tenderness. No CVA tenderness. UPPER EXTREMITIES: 2+ pulses, warm, well-perfused. No cyanosis. No clubbing. No peripheral edema. LOWER EXTREMITIES: 2+ pulses, warm, well-perfused. No calf tenderness. No peripheral edema. NEUROLOGICAL: Cranial nerves II-XII intact. Normal speech. Normal gait. PSYCHIATRIC: Cooperative. Good eye contact. Appropriate mood and affect. SKIN: Warm, dry, normal turgor, no rashes or lesions noted, normal capillary refill. Laboratory Results - last 24 hr 05/25/18 05/25/18 05/25/18 12:20 12:20 14:58 WBC 6.6 RBC 4.93 Hgb 14.5 Hct 44.5 MCV 90.2 MCH 29.4 MCHC 32.6 RDW 13.4 Plt Count 263 MPV 8.9 Absolute Neuts (auto) 6.0 Neutrophils % 90.8 H Lymphocytes % 7.4 L Monocytes % 1.3 L Eosinophils % 0.2 Basophils % 0.3 Sodium 139 Potassium 3.8 Chloride 107 Carbon Dioxide 22 Anion Gap 10 BUN 13 Creatinine 0.8 Creat Clearance w eGFR > 60 Random Glucose 151 H Calcium 8.7 Total Bilirubin 0.6 AST 24 ALT 20 Alkaline Phosphatase 128 H Total Protein 6.8 Albumin 3.6 Influenza A (Rapid) Negative Influenza B (Rapid) Negative CXR reviewed ekg reviewed ASSESSMENT/PLAN: #58 yo woman with COPD/asthma exacerbation. Likely exacerbated by cold air. Now much improved after several rounds of nebulizer treatments and systemic steroids. No suspicion of ACS as troponin was wnl and ekg nonsuggestive. Negative flu swab. -admit to med/surg -methylprednsione 40mg IV q8hrs -protonix for GI ppx -duonebs inhaled q 6hrs standing for now -supplemental oxygen via nasal cannula -azithromycin 500mg po daily -c/w trudorza and atrovent (home meds) -robitussin prn for cough #DLP -lipitor -ASA #HTN -c/w metoprolol #DVT ppx -heparin sc Visit type - Emergency Visit Emergency Visit: Yes ED Registration Date: 05/25/18 Care time: The patient presented to the Emergency Department on the above date and was hospitalized for further evaluation of their emergent condition. - New Patient This patient is new to me today: Yes Date on this admission: 05/26/18 - Critical Care Critical Care patient: No
[2018-05-25] MEDS: METOPROLOL TARTRATE 50 MG TABLET (FP) PO SCH (21:46)
[2018-05-25] MEDS: ATORVASTATIN CA 10 MG TABLET (FP) PO SCH (21:46)
[2018-05-25] MEDS ORDERED: ZOLPIDEM TARTRATE 5 MG TABLET PO PRN (22:00)
[2018-05-25] MEDS ORDERED: PATIENT'S OWN MEDICATION (NON-FORMULARY) (Aclidinium Bromide [Tudorza Pressair] 400 MCG) IH SCH (22:00)
[2018-05-25] MEDS: BUDESONIDE/FORMETEROL FUMARATE 160/4.5 mcg INHALER IH SCH (22:29)
[2018-05-25] MEDS ORDERED: PT OWN MED DRAWER 7, Y5N ONE (22:34)
[2018-05-26] MEDS: methylPREDNISolone NA SUCC 40 MG/1 ML VIAL IVPUSH SCH ×3 (01:00→17:28)
[2018-05-26] MEDS: guaiFENesin/CODEINE 10 ML UNIT-DOSE CUPS PO PRN (04:26)
[2018-05-26 09:00] LABS: ANION GAP 8 MMOL/L (8-16); BLOOD UREA NITROGEN 16 mg/dl (7-18); CALCIUM 8.9 mg/dl (8.4-10.2); CHLORIDE 111 mmol/L (98-107); CO2 22 mmol/L (22-28); CREATININE 0.6 mg/dl (0.6-1.3); GLUCOSE,RANDOM 130 mg/dl (74-106); POTASSIUM 4.2 mmol/L (3.5-5.1); SODIUM 141 mmol/L (136-145)
[2018-05-26] MEDS: ALBUTEROL SO4 2.5/IPRATROPIUM 0.5 INH SOL 3 ML VIAL.NEB. NEB SCH ×4 (09:00→20:11)
[2018-05-26 09:05] LABS: HEMATOCRIT 41.7 % (32.4-45.2); HEMOGLOBIN 13.5 GM/dl (10.7-15.3); MCH 29.3 pg (25.7-33.7); MCHC 32.3 g/dl (32.0-36.0); MEAN CELL VOLUME 90.5 fl (80-96); MEAN PLT VOLUME 9.2 fl (7.5-11.1); PLATELET COUNT 289 K/MM3 (134-434); RBC 4.61 M/mm3 (3.60-5.2); RDW 13.2 % (11.6-15.6); WHITE BLOOD COUNT 11.4 K/mm3 (4.0-10.8)
[2018-05-26] MEDS ORDERED: PT OWN MED DRAWER 7, Y5N ONE ×2 (09:21→21:22)
[2018-05-26] MEDS: ASPIRIN 325 MG TABLET PO SCH (09:32)
[2018-05-26] MEDS: AZITHROMYCIN 250 MG TABLET PO SCH (09:32)
[2018-05-26] MEDS: PANTOPRAZOLE 40 MG TABLET (FP) PO SCH (09:33)
[2018-05-26] MEDS: BUDESONIDE/FORMETEROL FUMARATE 160/4.5 mcg INHALER IH SCH ×2 (09:33→21:34)
[2018-05-26] MEDS: METOPROLOL TARTRATE 50 MG TABLET (FP) PO SCH ×2 (09:33→21:35)
--- NOTE | 2018-05-26 09:54 | PN ---
Physical Exam: SUBJECTIVE: Patient seen and examined. Sitting cross-legged on top of bed. Comfortable. States has been coughing a loit. OBJECTIVE: Vital Signs Period Temp Pulse Resp BP Sys/Belcher Pulse Ox Last 24 Hr 97.8 F-98.2 F 82-118 20-26 115-136/48-78 90-99 GENERAL: The patient is awake, alert, and fully oriented, in no acute distress. LUNGS: Mild wheezing upper lobes HEART: Regular rate and rhythm, S1, S2 ABDOMEN: Soft, nontender, nondistended EXTREMITIES: 2+ pulses, warm, well-perfused, no edema. NEUROLOGICAL: Cranial nerves II through XII grossly intact. Normal speech, self- positions with ease Laboratory Results - last 24 hr 05/25/18 05/25/18 05/25/18 12:20 12:20 14:58 WBC 6.6 RBC 4.93 Hgb 14.5 Hct 44.5 MCV 90.2 MCH 29.4 MCHC 32.6 RDW 13.4 Plt Count 263 MPV 8.9 Absolute Neuts (auto) 6.0 Neutrophils % 90.8 H Lymphocytes % 7.4 L Monocytes % 1.3 L Eosinophils % 0.2 Basophils % 0.3 Sodium 139 Potassium 3.8 Chloride 107 Carbon Dioxide 22 Anion Gap 10 BUN 13 Creatinine 0.8 Creat Clearance w eGFR > 60 POC Glucometer Random Glucose 151 H Calcium 8.7 Total Bilirubin 0.6 AST 24 ALT 20 Alkaline Phosphatase 128 H Total Protein 6.8 Albumin 3.6 Influenza A (Rapid) Negative Influenza B (Rapid) Negative 05/25/18 05/26/18 05/26/18 22:32 05:54 07:35 WBC RBC Hgb Hct MCV MCH MCHC RDW Plt Count MPV Absolute Neuts (auto) Neutrophils % Lymphocytes % Monocytes % Eosinophils % Basophils % Sodium 141 Potassium 4.2 Chloride 111 H Carbon Dioxide 22 Anion Gap 8 BUN 16 Creatinine 0.6 Creat Clearance w eGFR > 60 POC Glucometer 171 140 Random Glucose 130 H Calcium 8.9 Total Bilirubin AST ALT Alkaline Phosphatase Total Protein Albumin Influenza A (Rapid) Influenza B (Rapid) 05/26/18 07:35 WBC 11.4 H RBC 4.61 Hgb 13.5 Hct 41.7 MCV 90.5 MCH 29.3 MCHC 32.3 RDW 13.2 Plt Count 289 MPV 9.2 Absolute Neuts (auto) 10.6 Neutrophils % No Result Required. Lymphocytes % No Result Required. Monocytes % Eosinophils % Basophils % Sodium Potassium Chloride Carbon Dioxide Anion Gap BUN Creatinine Creat Clearance w eGFR POC Glucometer Random Glucose Calcium Total Bilirubin AST ALT Alkaline Phosphatase Total Protein Albumin Influenza A (Rapid) Influenza B (Rapid) Active Medications Generic Name Dose Route Start Last Admin Trade Name Freq PRN Reason Stop Dose Admin Albuterol/Ipratropium 1 amp 05/25/18 16:00 05/26/18 09:00 Duoneb - NEB 1 amp RQID EFFIE Administration Aspirin 325 mg 05/26/18 10:00 05/26/18 09:32 Asa - PO 325 mg Q2D@1000 EFFIE Administration Atorvastatin Calcium 10 mg 05/25/18 22:00 05/25/18 21:46 Lipitor - PO 10 mg HS EFFIE Administration Azithromycin 500 mg 05/26/18 10:00 05/26/18 09:32 Zithromax - PO 500 mg DAILY EFFIE Administration Budesonide/Formoterol Fumarate 2 puff 05/25/18 22:00 05/26/18 09:33 Symbicort 160/4.5mcg - IH 2 puff BID EFFIE Administration Guaifenesin/Codeine Phosphate 5 ml 05/25/18 21:47 05/26/18 04:26 Robitussin Ac - PO 5 ml Q8H PRN Administration COUGH Methylprednisolone Sodium Succinate 40 mg 05/25/18 15:23 05/26/18 09:33 Solu-Medrol - IVPUSH 40 mg Q8H-IV EFFIE Administration Metoprolol Tartrate 50 mg 05/25/18 22:00 05/26/18 09:33 Lopressor - PO 50 mg BID EFFIE Administration Pantoprazole Sodium 40 mg 05/26/18 10:00 05/26/18 09:33 Protonix - PO 40 mg DAILY EFFIE Administration Zolpidem Tartrate 10 mg 05/25/18 22:00 05/25/18 21:46 Ambien - PO 10 mg HS PRN Administration INSOMNIA ASSESSMENT/PLAN 58 year-old female with a PMH significant for HTN, HLD, and COPD. Admitted for COPD exacerbation. COPD exacerbation --afebrile --CXR: hyperinflation, no sign of pneuonia --continue IV steroids --continue duonebs scheduled --continue azithromycin PO (day #2 of 5) --pulmonary following Hypertension --BP stable --continue lopressor Hyperlipidemia --continue Lipitor FEN Fluids: PO intake adequate Electrolytes: replete as indicated Nutrition: low sodium DVT prophylaxis: subq lovenox Pre post Daily peak flows Dispo: continues to require inpatient care. Full code. Visit type - Emergency Visit Emergency Visit: Yes ED Registration Date: 05/25/18 Care time: The patient presented to the Emergency Department on the above date and was hospitalized for further evaluation of their emergent condition. - New Patient This patient is new to me today: Yes Date on this admission: 05/26/18 - Critical Care Critical Care patient: No
--- NOTE | 2018-05-26 09:58 | EKG ---
Test Reason : Blood Pressure : / mmHG Vent. Rate : 104 BPM Atrial Rate : 104 BPM P-R Int : 140 ms QRS Dur : 080 ms QT Int : 350 ms P-R-T Axes : 057 051 067 degrees QTc Int : 460 ms SINUS TACHYCARDIA OTHERWISE NORMAL ECG WHEN COMPARED WITH ECG OF 25-MAY-2018 14:27, NO SIGNIFICANT CHANGE WAS FOUND Confirmed by JOSE PUCKETT MD ([id number]) on 05/26/2018 9:57:53 AM Referred By: VANDANA Confirmed By:JOSE PUCKETT MD
--- NOTE | 2018-05-26 09:58 | EKG ---
Test Reason : Blood Pressure : / mmHG Vent. Rate : 109 BPM Atrial Rate : 109 BPM P-R Int : 000 ms QRS Dur : 084 ms QT Int : 352 ms P-R-T Axes : 000 138 142 degrees QTc Int : 474 ms SUSPECT ARM LEAD REVERSAL, INTERPRETATION ASSUMES NO REVERSAL SINUS TACHYCARDIA LOW VOLTAGE QRS LATERAL INFARCT , AGE UNDETERMINED ABNORMAL ECG WHEN COMPARED WITH ECG OF 19-APR-2017 00:21, VOLTAGE HAS DECREASED T WAVE VARIATION Confirmed by LAVERN SAENZ, JOSE ([id number]) on 05/26/2018 9:58:24 AM Referred By: ASHLI DSOUZA Confirmed By:JOSE PUCKETT MD
[2018-05-26] MEDS: ENOXAPARIN NA (PORCINE) 40 MG/0.4 ML DISP.SYRIN SQ SCH (11:52)
--- NOTE | 2018-05-26 12:20 | CON.PULM ---
Consult Consult Specialty:: PULMONARY Referred by:: JESSIE Reason for Consultation:: COUGH/WHEEZE/SOB - History of Present Illness History of Present Illness: 58 yo F history HTN, HL, COPD presents with persistent cough, SOB, wheezing for the past 1 week. She states she has been taking her inhalers and nebs without improvement. Denies recent steroid use. No recent antibiotics. Denies fever, sick contacts. She has moderate chest soreness that is worse with cough, improves with rest. Patient is a former smoker and admits to an occasional cigarette. 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 Cardio/Vascular: Yes: HTN, Hyperlipdemia Pulmonary: Yes: COPD (moderate-severe) Gastrointestinal: No: Ascites Hepatobiliary: No: Cirrhosis Renal/: No: Renal Failure Heme/Onc: No: Anemia - Alcohol/Substance Use Hx Alcohol Use: Yes - Smoking History Smoking history: Former smoker Have you smoked in the past 12 months: Yes Aproximately how many cigarettes per day: 0 If you are a former smoker, when did you quit?: 6 months ago - Social History ADL: Independent Place of : [facility] History of Recent Travel: No Home Medications - Allergies Allergies/Adverse Reactions: Allergies Allergy/AdvReac Type Severity Reaction Status Date / Time No Known Allergies Allergy Verified 05/25/18 09:57 - Home Medications Home Medications: Ambulatory Orders Aspirin 325 mg PO Q48H 11/22/12 Simvastatin [Zocor -] 20 mg PO HS 11/22/12 Tiotropium [place] [Spiriva] 1 inh PO DAILY 03/24/14 Albuterol 0.083% Nebulizer Janina [Ventolin 0.083% Nebulizer Soln -] 1 neb NEB Q6H #30 vial 01/10/16 Albuterol Sulfate Inhaler - [Ventolin HFA Inhaler -] 2 inh IH Q6H #1 inh Metoprolol Tartrate [Lopressor -] 50 mg PO BID 04/19/17 Salmeterol/Fluticasone [Advair 500Mcg/50Mcg -] 1 inh PO BID 04/19/17 Zolpidem Tartrate [Ambien] 10 mg PO HS PRN #0 tab 04/19/17 Aclidinium [place] [Tudorza Pressair] 400 mcg IH BID 05/25/18 Family Disease History - Family Disease History Family History: Unremarkable Review of Systems - Review of Systems Cardiovascular: denies: Chest Pain Respiratory: reports: Cough, Exercise Intolerance, SOB, SOB on Exertion Gastrointestinal: reports: No Symptoms Physical Exam Vital Sings: Vital Signs Temperature 97.9 F 05/26/18 04:26 Pulse Rate 95 H 05/26/18 09:38 Respiratory Rate 20 05/26/18 05:00 Blood Pressure 124/76 05/26/18 04:26 O2 Sat by Pulse Oximetry (%) 95 05/26/18 09:38 Constitutional: Yes: Anxious Eyes: Yes: EOM Intact HENT: Yes: Normocephalic Neck: Yes: Trachea Midline Cardiovascular: Yes: Regular Rate and Rhythm Respiratory: Yes: Wheezes Gastrointestinal: Yes: Normal Bowel Sounds Edema: No Neurological: Yes: Alert Labs: CBC, BMP 05/26/18 07:35 05/26/18 07:35 rest reviewed Imaging - Results Chest X-ray: Report Reviewed, Image Reviewed Problem List - Problems (1) Bronchitis Code(s): J40 - BRONCHITIS, NOT SPECIFIED ACUTE OR CHRONIC (2) COPD (chronic obstructive pulmonary disease) Code(s): J44.9 - CHRONIC OBSTRUCTIVE PULMONARY DISEASE, UNSPECIFIED Qualifiers: COPD type: unspecified COPD Qualified Code(s): J44.9 - Chronic obstructive pulmonary disease, unspecified (3) HTN (hypertension) Code(s): I10 - ESSENTIAL (PRIMARY) HYPERTENSION Qualifiers: Hypertension type: essential hypertension Qualified Code(s): I10 - Essential (primary) hypertension (4) Vaso vagal episode Code(s): R55 - SYNCOPE AND COLLAPSE Assessment/Plan agree with steroids/antibiotics/o2 supplementation/laba/lama/ics/po would check peak flow daily not ready for discharge. Ruma SAMUEL MD
[2018-05-26 12:33] LABS: PLATELET ESTIMATE ADEQUATE
[2018-05-26] MEDS: ACETAMINOPHEN 500 MG TABLET (FP) PO PRN (21:34)
[2018-05-26] MEDS: ATORVASTATIN CA 10 MG TABLET (FP) PO SCH (21:35)
[2018-05-27] MEDS: methylPREDNISolone NA SUCC 40 MG/1 ML VIAL IVPUSH SCH ×2 (01:39→09:29)
[2018-05-27] MEDS: ACETAMINOPHEN 500 MG TABLET (FP) PO PRN (07:02)
[2018-05-27] MEDS: ALBUTEROL SO4 2.5/IPRATROPIUM 0.5 INH SOL 3 ML VIAL.NEB. NEB SCH ×4 (09:22→20:23)
[2018-05-27] MEDS: METOPROLOL TARTRATE 50 MG TABLET (FP) PO SCH ×2 (09:28→21:18)
[2018-05-27] MEDS: BUDESONIDE/FORMETEROL FUMARATE 160/4.5 mcg INHALER IH SCH ×2 (09:29→21:18)
[2018-05-27] MEDS: PANTOPRAZOLE 40 MG TABLET (FP) PO SCH (09:29)
[2018-05-27] MEDS: AZITHROMYCIN 250 MG TABLET PO SCH (09:29)
[2018-05-27] MEDS: ENOXAPARIN NA (PORCINE) 40 MG/0.4 ML DISP.SYRIN SQ SCH (09:29)
[2018-05-27] MEDS: guaiFENesin/CODEINE 10 ML UNIT-DOSE CUPS PO PRN (09:30)
--- NOTE | 2018-05-27 10:15 | PN ---
Progress Note, Physician History of Present Illness: pulmonary alert,oob-chair,sob improving - Current Medication List Current Medications: Active Medications Acetaminophen (Tylenol -) 500 mg PO Q6H PRN PRN Reason: HEADACHE Last Admin: 05/27/18 07:02 Dose: 500 mg Albuterol/Ipratropium (Duoneb -) 1 amp NEB RQID [facility] [place] Last Admin: 05/27/18 09:22 Dose: 1 amp Aspirin (Asa -) 325 mg PO Q2D@1000 [facility] Last Admin: 05/26/18 09:32 Dose: 325 mg Atorvastatin Calcium (Lipitor -) 10 mg PO HS [facility] Last Admin: 05/26/18 21:35 Dose: 10 mg Azithromycin (Zithromax -) 500 mg PO DAILY [facility] [place] Last Admin: 05/27/18 09:29 Dose: 500 mg Budesonide/Formoterol Fumarate (Symbicort 160/4.5mcg -) 2 puff IH BID [facility] [place] Last Admin: 05/27/18 09:29 Dose: 2 puff Enoxaparin Sodium (Lovenox -) 40 mg SQ DAILY [facility] [place] Last Admin: 05/27/18 09:29 Dose: 40 mg Guaifenesin/Codeine Phosphate (Robitussin Ac -) 5 ml PO Q8H PRN PRN Reason: COUGH Last Admin: 05/27/18 09:30 Dose: 5 ml Methylprednisolone Sodium Succinate (Solu-Medrol -) 40 mg IVPUSH Q8H-IV [facility] [place] Last Admin: 05/27/18 09:29 Dose: 40 mg Metoprolol Tartrate (Lopressor -) 50 mg PO BID [facility] [place] Last Admin: 05/27/18 09:28 Dose: 50 mg Pantoprazole Sodium (Protonix -) 40 mg PO DAILY [facility] [place] Last Admin: 05/27/18 09:29 Dose: 40 mg - Objective Vital Signs: Vital Signs Temperature 97.9 F 05/27/18 06:01 Pulse Rate 102 H 05/27/18 06:01 Respiratory Rate 20 05/27/18 06:01 Blood Pressure 157/85 05/27/18 06:01 O2 Sat by Pulse Oximetry (%) 96 05/27/18 06:01 Constitutional: Yes: Well Nourished, Calm Eyes: Yes: WNL HENT: Yes: WNL Neck: Yes: WNL Cardiovascular: Yes: Regular Rate and Rhythm, S1, S2 Respiratory: Yes: Wheezes (few scattered hans wheezes) Gastrointestinal: Yes: Normal Bowel Sounds, Soft Extremities: Yes: WNL Edema: No Labs: CBC, BMP 05/26/18 07:35 05/26/18 07:35 Assessment/Plan Problem List - Problems (1) Bronchitis Code(s): J40 - BRONCHITIS, NOT SPECIFIED ACUTE OR CHRONIC (2) COPD (chronic obstructive pulmonary disease) Code(s): J44.9 - CHRONIC OBSTRUCTIVE PULMONARY DISEASE, UNSPECIFIED Qualifiers: COPD type: unspecified COPD Qualified Code(s): J44.9 - Chronic obstructive pulmonary disease, unspecified (3) HTN (hypertension) Code(s): I10 - ESSENTIAL (PRIMARY) HYPERTENSION Qualifiers: Hypertension type: essential hypertension Qualified Code(s): I10 - Essential (primary) hypertension (4) Vaso vagal episode Code(s): R55 - SYNCOPE AND COLLAPSE Assessment/Plan steroids same dose antibiotics o2 supplementation laba/lama/ics/po would check peak flow daily chest ct DR HINES
--- NOTE | 2018-05-27 14:12 | PN ---
Physical Exam: SUBJECTIVE: Patient seen and examined. Observed walking in hallway, desatted to 85% on 2L NC with ambulation. Coughing. OBJECTIVE: Vital Signs Period Temp Pulse Resp BP Sys/Belcher Pulse Ox Last 24 Hr 97.9 F-98.7 F 87-102 19-20 117-157/66-85 94-96 GENERAL: The patient is awake, alert, and fully oriented, in no acute distress. LUNGS: Diffuse wheezing HEART: Regular rate and rhythm, S1, S2 ABDOMEN: Soft, nontender, nondistended EXTREMITIES: 2+ pulses, warm, well-perfused, no edema. NEUROLOGICAL: Cranial nerves II through XII grossly intact. Normal speech, self- positions with ease CBCD WBC 11.4 K/mm3 (4.0-10.8) H 05/26/18 07:35 RBC 4.61 M/mm3 (3.60-5.2) 05/26/18 07:35 Hgb 13.5 GM/dl (10.7-15.3) 05/26/18 07:35 Hct 41.7 % (32.4-45.2) 05/26/18 07:35 MCV 90.5 fl (80-96) 05/26/18 07:35 MCHC 32.3 g/dl (32.0-36.0) 05/26/18 07:35 RDW 13.2 % (11.6-15.6) 05/26/18 07:35 Plt Count 289 K/MM3 (134-434) 05/26/18 07:35 MPV 9.2 fl (7.5-11.1) 05/26/18 07:35 CMP Sodium 141 mmol/L (136-145) 05/26/18 07:35 Potassium 4.2 mmol/L (3.5-5.1) 05/26/18 07:35 Chloride 111 mmol/L (98-107) H 05/26/18 07:35 Carbon Dioxide 22 mmol/L (22-28) 05/26/18 07:35 Anion Gap 8 MMOL/L (8-16) 05/26/18 07:35 BUN 16 mg/dl (7-18) 05/26/18 07:35 Creatinine 0.6 mg/dl (0.6-1.3) 05/26/18 07:35 Creat Clearance w eGFR > 60 (>60) 05/26/18 07:35 Calcium 8.9 mg/dl (8.4-10.2) 05/26/18 07:35 Total Bilirubin 0.6 mg/dl (0.2-1.0) 05/25/18 12:20 AST 24 U/L (10-42) 05/25/18 12:20 ALT 20 U/L (10-40) 05/25/18 12:20 Alkaline Phosphatase 128 U/L (32-92) H 05/25/18 12:20 Total Protein 6.8 g/dl (6.4-8.3) 05/25/18 12:20 Albumin 3.6 g/dl (3.5-5.0) 05/25/18 12:20 Active Medications Generic Name Dose Route Start Last Admin Trade Name Freq PRN Reason Stop Dose Admin Acetaminophen 500 mg 05/26/18 20:50 05/27/18 07:02 Tylenol - PO 500 mg Q6H PRN Administration HEADACHE Albuterol/Ipratropium 1 amp 05/25/18 16:00 05/27/18 09:22 Duoneb - NEB 1 amp RQID EFFIE Administration Aspirin 325 mg 05/26/18 10:00 05/26/18 09:32 Asa - PO 325 mg Q2D@1000 EFFIE Administration Atorvastatin Calcium 10 mg 05/25/18 22:00 05/26/18 21:35 Lipitor - PO 10 mg HS EFFIE Administration Azithromycin 500 mg 05/26/18 10:00 05/27/18 09:29 Zithromax - PO 500 mg DAILY EFFIE Administration Budesonide/Formoterol Fumarate 2 puff 05/25/18 22:00 05/27/18 09:29 Symbicort 160/4.5mcg - IH 2 puff BID EFFIE Administration Enoxaparin Sodium 40 mg 05/26/18 10:15 05/27/18 09:29 Lovenox - SQ 40 mg DAILY EFFIE Administration Guaifenesin/Codeine Phosphate 5 ml 05/25/18 21:47 05/27/18 09:30 Robitussin Ac - PO 5 ml Q8H PRN Administration COUGH Methylprednisolone Sodium Succinate 40 mg 05/25/18 15:23 05/27/18 09:29 Solu-Medrol - IVPUSH 40 mg Q8H-IV EFFIE Administration Metoprolol Tartrate 50 mg 05/25/18 22:00 05/27/18 09:28 Lopressor - PO 50 mg BID EFFIE Administration Pantoprazole Sodium 40 mg 05/26/18 10:00 05/27/18 09:29 Protonix - PO 40 mg DAILY EFFIE Administration ASSESSMENT/PLAN: 58 year-old female with a PMH significant for HTN, HLD, severe COPD, current smoker. Admitted for COPD exacerbation. Hypoxic respiratory failure secondary to COPD exacerbation --05/25 CXR: hyperinflated lungs --IV steroids, Symbicort, duonebs --Azithromycin --titrate SpO2 <94% --CT chest pending --pulmonary following Hypertension --BP stable --continue lopressor Hyperlipidemia --continue Lipitor FEN Fluids: PO intake adequate Electrolytes: replete as indicated Nutrition: low sodium DVT prophylaxis: subq lovenox, oob, ambulation Dispo: continues to require inpatient care. Full code. Visit type - Emergency Visit Emergency Visit: Yes ED Registration Date: 05/25/18 Care time: The patient presented to the Emergency Department on the above date and was hospitalized for further evaluation of their emergent condition. - New Patient This patient is new to me today: Yes Date on this admission: 05/28/18 - Critical Care Critical Care patient: No
[2018-05-27] MEDS ORDERED: PT OWN MED DRAWER 7, Y5N ONE (20:56)
[2018-05-27] MEDS: ATORVASTATIN CA 10 MG TABLET (FP) PO SCH (21:18)
[2018-05-28] MEDS: methylPREDNISolone NA SUCC 40 MG/1 ML VIAL IVPUSH SCH ×3 (02:03→17:49)
[2018-05-28] MEDS: ALBUTEROL SO4 2.5/IPRATROPIUM 0.5 INH SOL 3 ML VIAL.NEB. NEB SCH ×4 (08:36→20:00)
[2018-05-28] MEDS: BUDESONIDE/FORMETEROL FUMARATE 160/4.5 mcg INHALER IH SCH ×2 (09:14→21:18)
[2018-05-28] MEDS: ENOXAPARIN NA (PORCINE) 40 MG/0.4 ML DISP.SYRIN SQ SCH (09:15)
[2018-05-28] MEDS: METOPROLOL TARTRATE 50 MG TABLET (FP) PO SCH ×2 (09:16→21:19)
[2018-05-28] MEDS: AZITHROMYCIN 250 MG TABLET PO SCH (09:16)
[2018-05-28] MEDS: ASPIRIN 325 MG TABLET PO SCH (09:16)
[2018-05-28] MEDS: PANTOPRAZOLE 40 MG TABLET (FP) PO SCH (09:16)
[2018-05-28] MEDS: ACETAMINOPHEN 500 MG TABLET (FP) PO PRN (12:32)
--- NOTE | 2018-05-28 12:56 | PN ---
Physical Exam: SUBJECTIVE: Patient seen and examined. Paroxysmal fits of coughing productive of sputum. Satting 92% on 1L NC. OBJECTIVE: Vital Signs Period Temp Pulse Resp BP Sys/Belcher Pulse Ox Last 24 Hr 97.6 F-98.1 F 76-88 18-19 114-130/64-81 93-96 GENERAL: The patient is awake, alert, and fully oriented, in no acute distress. LUNGS: CTA; +cough HEART: Regular rate and rhythm, S1, S2 ABDOMEN: Soft, nontender, nondistended EXTREMITIES: 2+ pulses, warm, well-perfused, no edema. Normal speech, steady gait CBCD WBC 11.4 K/mm3 (4.0-10.8) H 05/26/18 07:35 RBC 4.61 M/mm3 (3.60-5.2) 05/26/18 07:35 Hgb 13.5 GM/dl (10.7-15.3) 05/26/18 07:35 Hct 41.7 % (32.4-45.2) 05/26/18 07:35 MCV 90.5 fl (80-96) 05/26/18 07:35 MCHC 32.3 g/dl (32.0-36.0) 05/26/18 07:35 RDW 13.2 % (11.6-15.6) 05/26/18 07:35 Plt Count 289 K/MM3 (134-434) 05/26/18 07:35 MPV 9.2 fl (7.5-11.1) 05/26/18 07:35 CMP Sodium 141 mmol/L (136-145) 05/26/18 07:35 Potassium 4.2 mmol/L (3.5-5.1) 05/26/18 07:35 Chloride 111 mmol/L (98-107) H 05/26/18 07:35 Carbon Dioxide 22 mmol/L (22-28) 05/26/18 07:35 Anion Gap 8 MMOL/L (8-16) 05/26/18 07:35 BUN 16 mg/dl (7-18) 05/26/18 07:35 Creatinine 0.6 mg/dl (0.6-1.3) 05/26/18 07:35 Creat Clearance w eGFR > 60 (>60) 05/26/18 07:35 Calcium 8.9 mg/dl (8.4-10.2) 05/26/18 07:35 Total Bilirubin 0.6 mg/dl (0.2-1.0) 05/25/18 12:20 AST 24 U/L (10-42) 05/25/18 12:20 ALT 20 U/L (10-40) 05/25/18 12:20 Alkaline Phosphatase 128 U/L (32-92) H 05/25/18 12:20 Total Protein 6.8 g/dl (6.4-8.3) 05/25/18 12:20 Albumin 3.6 g/dl (3.5-5.0) 05/25/18 12:20 Laboratory Results - last 24 hr 05/27/18 05/28/18 05/28/18 20:46 06:26 12:12 POC Glucometer 197 151 181 Active Medications Generic Name Dose Route Start Last Admin Trade Name Freq PRN Reason Stop Dose Admin Acetaminophen 500 mg 05/26/18 20:50 05/28/18 12:32 Tylenol - PO 500 mg Q6H PRN Administration HEADACHE Albuterol/Ipratropium 1 amp 05/25/18 16:00 05/28/18 12:28 Duoneb - NEB 1 amp RQID EFFIE Administration Aspirin 325 mg 05/26/18 10:00 05/28/18 09:16 Asa - PO 325 mg Q2D@1000 EFFIE Administration Atorvastatin Calcium 10 mg 05/25/18 22:00 05/27/18 21:18 Lipitor - PO 10 mg HS EFFIE Administration Azithromycin 500 mg 05/26/18 10:00 05/28/18 09:16 Zithromax - PO 500 mg DAILY EFFIE Administration Budesonide/Formoterol Fumarate 2 puff 05/25/18 22:00 05/28/18 09:14 Symbicort 160/4.5mcg - IH 2 puff BID EFFIE Administration Enoxaparin Sodium 40 mg 05/26/18 10:15 05/28/18 09:15 Lovenox - SQ 40 mg DAILY EFFIE Administration Guaifenesin/Codeine Phosphate 5 ml 05/25/18 21:47 05/27/18 09:30 Robitussin Ac - PO 5 ml Q8H PRN Administration COUGH Methylprednisolone Sodium Succinate 40 mg 05/25/18 15:23 05/28/18 09:16 Solu-Medrol - IVPUSH 40 mg Q8H-IV EFFIE Administration Metoprolol Tartrate 50 mg 05/25/18 22:00 05/28/18 09:16 Lopressor - PO 50 mg BID EFFIE Administration Pantoprazole Sodium 40 mg 05/26/18 10:00 05/28/18 09:16 Protonix - PO 40 mg DAILY EFFIE Administration ASSESSMENT/PLAN: 58 year-old female with a PMH significant for HTN, HLD, severe COPD, current smoker. Admitted for COPD exacerbation. Hypoxic respiratory failure secondary to COPD exacerbation --05/28 CT chest: severe COPD changes with large bulla occupying most of the lung apex; since 2011 scan, interval development several nodules; 8mm LLL focal opacity, infiltrate v. nodule, needs PET --IV steroids 40mg q8h, Symbicort, duonebs --Azithromycin (day 3 out of 5) --titrate SpO2 <94% --pulmonary following Hypertension --BP stable --continue lopressor Hyperlipidemia --continue Lipitor FEN Fluids: PO intake adequate Electrolytes: replete as indicated Nutrition: low sodium DVT prophylaxis: subq lovenox, oob, ambulation Dispo: continues to require inpatient care. Full code. Visit type - Emergency Visit Emergency Visit: Yes ED Registration Date: 05/25/18 Care time: The patient presented to the Emergency Department on the above date and was hospitalized for further evaluation of their emergent condition. - New Patient This patient is new to me today: No - Critical Care Critical Care patient: No
--- NOTE | 2018-05-28 13:31 | PN ---
Progress Note (short form) - Note Progress Note: PULMONARY REMAINS SOB OOB TO CHAIR USING NEB/ON O2 NASAL CAN. SUBJECTIVE IMPROVEMENT MODERATE VSS/AFEBRILE ANICTERIC DIMINISHED BREATH SOUNDS WITH /B/L WHEEZES S1S2 BS+ NO EDEMA HAD LONG DISCUSSION WITH PATIENT REGARDING THE SEVERITY OF HER UNDERLYING LUNG DISEASE AND THE IMPORTANCE OF NOT SMOKING OR BEING EXPOSED TO SECOND HAND SMOKE AND THE USE OF OXYGEN. PATIENT IS NOT USING HOME O2 ALTHOUGH SHE HAS A CONCENTRATOR AND A PORTABLE SYSTEM. SHE ALSO HAD A PET SCAN APPROXIMATELY TWO YEARS AGO BY HER PRIMARY MD FOR FOLLOW UP ON A LUNG NODULE. SHE WAS UNCLEAR TO THE RESULTS BUT SAID THE NODULE WAS STABLE. I HAVE REVIEWED THIS RECENT CT CHEST AND COMPARED TO LAST ONE DONE HERE IN 2013. THERE IS A NEW DENSITY IN THE RIGHT LOWER LOBE WHICH WAS NOT PRESENT AT THAT TIME. SHE STATES SHE HAD YEARLY CT CHEST EXAMS IN F/U WITH HER PRIMARY BUT WAS NONCOMPLIANT WITH THE ONE FOR THIS PAST APRIL. SHE HAS END STAGE BILATERAL BULLOUS LUNG DISEASE WHICH APPEARS WORSE COMPARED TO 2013. LABS/MEDS/NOTES/IMAGES REVIEWED END STAGE BULLOUS LUNG DISEASE/O2 DEPENDANT MULTIPLE BILATERAL LUNG NODULES/NEW RIGHT LOWER LOBE IRREGULAR DENSITY (NEW COMPARED TO 2013 CT CHEST) BRONCHOSPASTIC COMPONENT TO HER COPD HTN/HPL CONTINUE IV STEROIDS/BRONCHODILATORS/O2/ANTIBIOTICS/DVT PROPHYLAXSIS WILL NEED CONTINUOUS HOME O2 UPON DISCHARGE WILL NEED FOLLOW UP PET SCAN UPON DISCHARGE I WILL CALL PMD TO RELAY TREATMENT PLAN Ruma SAMUEL MD Problem List - Problems (1) Bronchitis Code(s): J40 - BRONCHITIS, NOT SPECIFIED ACUTE OR CHRONIC (2) COPD (chronic obstructive pulmonary disease) Code(s): J44.9 - CHRONIC OBSTRUCTIVE PULMONARY DISEASE, UNSPECIFIED Qualifiers: COPD type: unspecified COPD Qualified Code(s): J44.9 - Chronic obstructive pulmonary disease, unspecified (3) HTN (hypertension) Code(s): I10 - ESSENTIAL (PRIMARY) HYPERTENSION Qualifiers: Hypertension type: essential hypertension Qualified Code(s): I10 - Essential (primary) hypertension (4) Vaso vagal episode Code(s): R55 - SYNCOPE AND COLLAPSE
[2018-05-28] MEDS: guaiFENesin/CODEINE 10 ML UNIT-DOSE CUPS PO PRN (14:01)
[2018-05-28] MEDS ORDERED: guaiFENesin/CODEINE 10 ML UNIT-DOSE CUPS PO PRN (14:25)
[2018-05-28] MEDS ORDERED: PT OWN MED DRAWER 7, Y5N ONE (21:14)
[2018-05-28] MEDS: ATORVASTATIN CA 10 MG TABLET (FP) PO SCH (21:18)
[2018-05-29] MEDS: methylPREDNISolone NA SUCC 40 MG/1 ML VIAL IVPUSH SCH (01:42)
--- NOTE | 2018-05-29 07:16 | PN ---
Progress Note, Physician History of Present Illness: pulmonary alert,feeling better,less dyspneic - Current Medication List Current Medications: Active Medications Acetaminophen (Tylenol -) 500 mg PO Q6H PRN PRN Reason: HEADACHE Last Admin: 05/28/18 12:32 Dose: 500 mg Albuterol/Ipratropium (Duoneb -) 1 amp NEB RQID [facility] Last Admin: 05/28/18 20:00 Dose: 1 amp Aspirin (Asa -) 325 mg PO Q2D@1000 [facility] Last Admin: 05/28/18 09:16 Dose: 325 mg Atorvastatin Calcium (Lipitor -) 10 mg PO HS [facility] Last Admin: 05/28/18 21:18 Dose: 10 mg Azithromycin (Zithromax -) 500 mg PO DAILY [facility] Last Admin: 05/28/18 09:16 Dose: 500 mg Budesonide/Formoterol Fumarate (Symbicort 160/4.5mcg -) 2 puff IH BID [facility] Last Admin: 05/28/18 21:18 Dose: 2 puff Enoxaparin Sodium (Lovenox -) 40 mg SQ DAILY [facility] Last Admin: 05/28/18 09:15 Dose: 40 mg Guaifenesin/Codeine Phosphate (Robitussin Ac -) 5 ml PO Q4H PRN PRN Reason: COUGH Methylprednisolone Sodium Succinate (Solu-Medrol -) 40 mg IVPUSH Q8H-IV [facility] Last Admin: 05/29/18 01:42 Dose: 40 mg Metoprolol Tartrate (Lopressor -) 50 mg PO BID [facility] Last Admin: 05/28/18 21:19 Dose: 50 mg Pantoprazole Sodium (Protonix -) 40 mg PO DAILY [facility] Last Admin: 05/28/18 09:16 Dose: 40 mg - Objective Vital Signs: Vital Signs Temperature 98.2 F 05/29/18 05:58 Pulse Rate 80 05/29/18 05:58 Respiratory Rate 20 05/29/18 05:58 Blood Pressure 125/76 05/29/18 05:58 O2 Sat by Pulse Oximetry (%) 94 L 05/29/18 05:58 Constitutional: Yes: Well Nourished, Calm Eyes: Yes: WNL HENT: Yes: WNL Neck: Yes: WNL Cardiovascular: Yes: Regular Rate and Rhythm, S1, S2 Respiratory: Yes: Wheezes (few scattered wheezes) Gastrointestinal: Yes: Normal Bowel Sounds, Soft Extremities: Yes: WNL Edema: No Labs: Problem List - Problems (1) Bulla of lung Code(s): J43.9 - EMPHYSEMA, UNSPECIFIED Assessment/Plan Problem List - Problems (1) Bronchitis Code(s): J40 - BRONCHITIS, NOT SPECIFIED ACUTE OR CHRONIC (2) COPD (chronic obstructive pulmonary disease) Code(s): J44.9 - CHRONIC OBSTRUCTIVE PULMONARY DISEASE, UNSPECIFIED Qualifiers: COPD type: unspecified COPD Qualified Code(s): J44.9 - Chronic obstructive pulmonary disease, unspecified (3) HTN (hypertension) Code(s): I10 - ESSENTIAL (PRIMARY) HYPERTENSION Qualifiers: Hypertension type: essential hypertension Qualified Code(s): I10 - Essential (primary) hypertension (4) Vaso vagal episode Code(s): R55 - SYNCOPE AND COLLAPSE Assessment/Plan prednisone 60 daily with taper antibiotics o2 supplementation laba/lama/ics/po would check peak flow daily outpatient pfts DR HINES
[2018-05-29] MEDS: ALBUTEROL SO4 2.5/IPRATROPIUM 0.5 INH SOL 3 ML VIAL.NEB. NEB SCH ×2 (08:29→13:40)
[2018-05-29] MEDS ORDERED: predniSONE 20 MG TABLET (UD) PO ONE (09:00)
[2018-05-29] MEDS: BUDESONIDE/FORMETEROL FUMARATE 160/4.5 mcg INHALER IH SCH (09:29)
[2018-05-29] MEDS: AZITHROMYCIN 250 MG TABLET PO SCH (09:29)
[2018-05-29] MEDS: ENOXAPARIN NA (PORCINE) 40 MG/0.4 ML DISP.SYRIN SQ SCH (09:29)
[2018-05-29] MEDS: METOPROLOL TARTRATE 50 MG TABLET (FP) PO SCH (09:30)
[2018-05-29] MEDS: PANTOPRAZOLE 40 MG TABLET (FP) PO SCH (09:30)
[2018-05-29 09:45] VITALS: BP 135/69; PULSE 72; TEMP 98
--- NOTE | 2018-05-29 12:03 | DS ---
Physical Exam: SUBJECTIVE: Patient seen and examined OBJECTIVE: Vital Signs Period Temp Pulse Resp BP Sys/Belcher Pulse Ox Last 24 Hr 97.4 F-98.6 F 68-80 18-20 125-135/69-84 92-96 PHYSICAL EXAM GENERAL: The patient is awake, alert, and fully oriented, in no acute distress. HEAD: Normal with no signs of trauma. EYES: PERRL, extraocular movements intact, sclera anicteric, conjunctiva clear. ENT: Ears normal, nares patent, oropharynx clear without exudates, moist mucous membranes. NECK: Trachea midline, full range of motion, supple. LUNGS: Breath sounds equal, clear to auscultation bilaterally, no wheezes, no crackles, no accessory muscle use. HEART: Regular rate and rhythm, S1, S2 without murmur, rub or gallop. ABDOMEN: Soft, nontender, nondistended, normoactive bowel sounds, no guarding, no rebound, no hepatosplenomegaly, no masses. EXTREMITIES: 2+ pulses, warm, well-perfused, no edema. NEUROLOGICAL: Cranial nerves II through XII grossly intact. Normal speech, gait not observed. PSYCH: Normal mood, normal affect. SKIN: Warm, dry, normal turgor, no rashes or lesions noted. LABS Laboratory Results - last 24 hr 05/28/18 05/28/18 05/29/18 12:12 17:09 06:48 POC Glucometer 181 167 126 HOSPITAL COURSE: Date of Admission:05/25/18 Date of Discharge: 05/29/18 Minutes to complete discharge: 35 Discharge Summary Reason For Visit: BRONCHITIS Current Active Problems Bronchitis (Acute) Bulla of lung (Acute) Condition: Improved - Instructions Diet, Activity, Other Instructions: Three prescriptions have been sent to your pharmacy: 1. Prednisone: take as directed and be sure to finish all the medication 2. Cough syrup: as directed; do not drive when taking this medication 3. Azithromycin: take one pill on 05/30 and then you are finished with antibiotics During your hospital stay a CT scan of your chest was performed. You will be given a CD-ROM at the time of discharge. Please bring this CD-ROM to your primary care provider or caterpillar tractor operator. As we discussed, you need to get a repeat PET scan. Patient requires home oxygen therapy based upon SpO2 85% on 2L oxygen at rest, and lower with ambulation. COPD code: J44.9 Referrals: Carol Day MD [Primary Care Provider] - Disposition: HOME - Home Medications Comprehensive Discharge Medication List: Ambulatory Orders Aspirin 325 mg PO Q48H 11/22/12 Simvastatin [Zocor -] 20 mg PO HS 11/22/12 Tiotropium [place] [Spiriva] 1 inh PO DAILY 03/24/14 Albuterol 0.083% Nebulizer Janina [Ventolin 0.083% Nebulizer Soln -] 1 neb NEB Q6H #30 vial 01/10/16 Albuterol Sulfate Inhaler - [Ventolin HFA Inhaler -] 2 inh IH Q6H #1 inh Metoprolol Tartrate [Lopressor -] 50 mg PO BID 04/19/17 Salmeterol/Fluticasone [Advair 500Mcg/50Mcg -] 1 inh PO BID 04/19/17 Aclidinium [place] [Tudorza Pressair] 400 mcg IH BID 05/25/18 Azithromycin [Zithromax 250mg Tablets -] 500 mg PO DAILY #1 tablet 05/29/18 Codeine Phosphate/Guaifenesin [Guaifenesin-Codeine Syrup] 5 ml PO Q4H PRN #240 ml MDD 30 05/29/18 Oxygen 2 l IH DAILY #1 l 05/29/18 Prednisone [Deltasone] 20 mg PO ASDIR #28 tablet 05/29/18 This patient is new to me today: Yes Date on this admission: 05/29/18 Emergency Visit: Yes ED Registration Date: 05/25/18 Care time: The patient presented to the Emergency Department on the above date and was hospitalized for further evaluation of their emergent condition. Critical Care patient: No
== END 2018-05-29 16:15 | disposition home or self-care (01) | DRG 189 ==
LOC: FER 09:29 → FM/S 13:35 → OBSVTOIN 21:10
PROVIDERS: ATTEND Nurse Practitioner Acute Care
DX: J96.01 Acute respiratory failure with hypoxia (principal); J44.1 Chronic obstructive pulmonary disease with (acute) exacerbation; J45.901 Unspecified asthma with (acute) exacerbation; I10 Essential (primary) hypertension; E78.5 Hyperlipidemia, unspecified; J20.9 Acute bronchitis, unspecified; J43.9 Emphysema, unspecified; Z87.891 Personal history of nicotine dependence; R55 Syncope and collapse
CPT/HCPCS: 36415; 71045-TC-FY; 71250-TC; 80048; 80053; 82962; 85025; 87070; 87205; 87804; 93005; 94640; 99282-25; G0378; J7030

== ENCOUNTER 2019-03-31 14:28 | Emergency (ER) | payer OTHER ==
[2019-03-31] MEDS ORDERED: ALBUTEROL SO4 0.083% IH SOL 2.5 MG/3 ML VIAL.NEB. NEB PRN (14:32)
[2019-03-31] MEDS ORDERED: methylPREDNISolone NA SUCC 125 MG/2 ML VIAL IVPB ONE (14:32)
[2019-03-31] MEDS ORDERED: ALBUTEROL SO4 2.5/IPRATROPIUM 0.5 INH SOL 3 ML VIAL.NEB. NEB ONE ×4 (14:32→17:28)
[2019-03-31] MEDS ORDERED: SODIUM CHLORIDE 1,000 ML IV STA (14:32)
--- NOTE | 2019-03-31 14:32 | PDOC ---
Rapid Medical Evaluation Time Seen by Provider: 03/31/19 14:30 Medical Evaluation: Allergies Allergy/AdvReac Type Severity Reaction Status Date / Time No Known Allergies Allergy Verified 05/25/18 09:57 03/31/19 14:30 CC: SOB cough and chest tightness PE: 4 word dyspnea. Diffuse expiratory wheezes Orders: nebs, EKG, CXR Patient will proceed to ED for continued evaluation. Discharge Disposition - Diagnosis COPD (chronic obstructive pulmonary disease) - Referrals - Patient Instructions - Post Discharge Activity
[2019-03-31 14:42] VITALS: BMI 26.5
[2019-03-31 15:03] LABS: BASO % 0.6 % (0-2.0); EOS % 0.9 % (0-4.5); HEMATOCRIT 43.9 % (32.4-45.2); HEMOGLOBIN 14.8 GM/dL (10.7-15.3); LYMPH % 11.7 % (8-40); MCHC 33.8 g/dl (32.0-36.0); MEAN CELL VOLUME 88.9 fl (80-96); MEAN PLT VOLUME 8.5 fl (7.5-11.1); MONO % 7.9 % (3.8-10.2); NEUT % 78.9 % (42.8-82.8); PLATELET COUNT 251 K/MM3 (134-434); RBC 4.94 M/mm3 (3.60-5.2); RDW 14.6 % (11.6-15.6); WHITE BLOOD COUNT 10.1 K/mm3 (4.0-10.0)
--- NOTE | 2019-03-31 15:05 | PDOC ---
History of Present Illness - General Chief Complaint: Chest Pain Stated Complaint: CHEST PAIN Time Seen by Provider: 03/31/19 14:30 - History of Present Illness Initial Comments: 03/31/19 15:04 59 yo F PMH HTN, HLD, asthma, and COPD, presenting with chest pain and SOB. States that it began at around 0800 this morning, sharp, sternal, non-radiating , associated with chest tightness, SOB, diffuse muscle aches and joint aches, MEJIAS. 2 days ago, patient developed cold-like symptoms with cough and chills. Notably , patient was also seen 2 weeks ago outpatient for COPD exacerbation, completed steroid course and felt better. States that this feels somewhat similar to her pneumonia symptoms, most recently in May 2018. Denies abdominal pain, constipation/diarrhea, N/V, urinary symptoms. Past History - Past Medical History Allergies/Adverse Reactions: Allergies Allergy/AdvReac Type Severity Reaction Status Date / Time No Known Allergies Allergy Verified 05/25/18 09:57 Home Medications: Ambulatory Orders Aspirin 325 mg PO Q48H 11/22/12 Simvastatin [Zocor -] 20 mg PO HS 11/22/12 Tiotropium [place] [Spiriva] 1 inh PO DAILY 03/24/14 Albuterol 0.083% Nebulizer Janina [Ventolin 0.083% Nebulizer Soln -] 1 neb NEB Q6H #30 vial 01/10/16 Albuterol Sulfate Inhaler - [Ventolin HFA Inhaler -] 2 inh IH Q6H #1 inh Metoprolol Tartrate [Lopressor -] 50 mg PO BID 04/19/17 Salmeterol/Fluticasone [Advair 500Mcg/50Mcg -] 1 inh PO BID 04/19/17 Aclidinium [place] [Tudorza Pressair] 400 mcg IH BID 05/25/18 Azithromycin [Zithromax 250mg Tablets -] 500 mg PO DAILY #1 tablet 05/29/18 Codeine Phosphate/Guaifenesin [Guaifenesin-Codeine Syrup] 5 ml PO Q4H PRN #240 ml MDD 30 05/29/18 Oxygen 2 l IH DAILY #1 l 05/29/18 Prednisone [Deltasone] 20 mg PO ASDIR #28 tablet 05/29/18 Amox-Tr/K Cl [Augmentin - 500Mg Tablet] 4 tab PO BID #40 tab MDD 8 tab 03/31/19 Azithromycin 250 mg PO DAILY #5 tablet MDD 1 tab 03/31/19 Asthma: Yes Cardiac Disorders: Yes ([place]) CVA: Yes COPD: Yes Diabetes: Yes (BORDERLINE) HTN: Yes Psychiatric Problems: Yes (ANXIETY) - Surgical History Abdominal Surgery: No Appendectomy: No Cardiac Surgery: No Cholecystectomy: No - Immunization History Immunization Up to Date: Yes - Psycho Social/Smoking Cessation Hx Smoking Status: Yes Smoking History: Never smoked Have you smoked in the past 12 months: No Number of Cigarettes Smoked Daily: 0 If you are a former smoker, when did you quit?: 6 months ago Information on smoking cessation initiated: No 'Breaking Loose' booklet given: 05/26/18 Hx Alcohol Use: No Drug/Substance Use Hx: No Substance Use Type: None Hx Substance Use Treatment: No Review of Systems - Review of Systems Able to Perform ROS?: Yes Constitutional: Yes: Chills, Fever. No: Diaphoresis HEENTM: No: Recent change in vision, Hearing Loss, Throat Swelling, Difficulty Swallowing Respiratory: Yes: Cough (productive of foam), Shortness of Breath, Wheezing Cardiac (ROS): Yes: Chest Pain (sternal), Chest Tightness. No: Edema, Irregular Heart Rate, Lightheadedness, Palpitations, Syncope ABD/GI: No: Constipated, Diarrhea, Nausea, Vomiting : No: Burning, Dysuria, Discharge, Frequency, Flank Pain Musculoskeletal: Yes: Joint Pain, Muscle Pain Neurological: Yes: Headache. No: Numbness, Tingling, Weakness *Physical Exam - Vital Signs Last Vital Signs Temp Pulse Resp BP Pulse Ox 100.0 F H 119 H 16 144/83 93 L 03/31/19 14:39 03/31/19 14:39 03/31/19 14:39 03/31/19 14:39 03/31/19 14:39 - Physical Exam Comments: 03/31/19 15:25 Gen: well-developed, well-nourished, mild distress Neuro: AAOX4, CN II-XII intact, FTN intact, EOMI, PERRLA, 5/5 strength, SILT HEENT: atraumatic, normocephalic, dry mucous membranes Neck: trachea midline, supple CV: tachycardic, regular rhythm, no murmurs, rubs, or gallops Pulm: diffuse expiratory wheezing Abd: soft, non-distended, non-tender MSK: full ROM, intact pulses Extr: no edema, no deformities Skin: warm, dry ED Treatment Course - LABORATORY CBC & Chemistry Diagram: 03/31/19 14:50 03/31/19 14:50 Medical Decision Making - Medical Decision Making 03/31/19 16:59 CAP v ACS v COPD exacerbation. - CBC, CMP, trop - EKG, CXR - steroids, ceftriaxone, and azithromycin for possible PNA - reassess 03/31/19 17:08 Rectal temp 102.3, likely admit for PNA sepsis. 03/31/19 17:24 Patient reassessed, continues to feel unwell. Will ctm. 03/31/19 18:13 Patient feels better, no longer wheezing. Will finish antibiotic course, appears likely dc home with Augmentin and azithromycin. 03/31/19 19:02 Flu negative, feeling better, heart rate in 100s. Will dc home with outpatient abx. Discharge - Discharge Information Problems reviewed: Yes Clinical Impression/Diagnosis: COPD (chronic obstructive pulmonary disease) Condition: Stable - Additional Discharge Information Prescriptions: Amox-Tr/K Cl [Augmentin - 500Mg Tablet] 4 tab PO BID #40 tab MDD 8 tab Azithromycin 250 mg PO DAILY #5 tablet MDD 1 tab - Follow up/Referral Referrals: Carol Day MD [Primary Care Provider] - - Patient Discharge Instructions Patient Printed Discharge Instructions: Pneumonia-Adult, DI for Chest Pain Additional Instructions: Please take Augmentin 2 grams twice a day, and Azithromycin 250 mg daily. Please return to the emergency department with any new or worsening symptoms or concerns. Please follow up with your primary care physician within 72 hours. - Post Discharge Activity
[2019-03-31 15:32] LABS: ALBUMIN 3.5 g/dl (3.4-5.0); ALK PHOS 143 U/L (45-117); ANION GAP 8 MMOL/L (8-16); BILIRUBIN,TOTAL 0.6 mg/dL (0.2-1); BLOOD UREA NITROGEN 10.4 mg/dL (7-18); CALCIUM 8.7 mg/dL (8.5-10.1); CHLORIDE 108 mmol/L (98-107); CO2 23 mmol/L (21-32); CREATININE 0.9 mg/dL (0.55-1.3); GLUCOSE,RANDOM 114 mg/dL (74-106); MAGNESIUM 1.8 mg/dL (1.8-2.4); POTASSIUM 3.8 mmol/L (3.5-5.1); SGOT/AST 11 U/L (15-37); SGPT/ALT 15 U/L (13-61); SODIUM 138 mmol/L (136-145); TOT PROT 6.7 g/dl (6.4-8.2)
[2019-03-31] MEDS ORDERED: ACETAMINOPHEN 1000 MG/100 ML VIAL (NON FORMULARY) IVPB ONE (16:03)
[2019-03-31] MEDS ORDERED: CEFTRIAXONE 1,000 MG in DEXTROSE 5%-WATER - 50 ML IVPB ONE (16:21)
[2019-03-31] MEDS ORDERED: AZITHROMYCIN IVPB 500 MG in DEXTROSE 5%-WATER - 250 ML IVPB ONE (16:21)
--- NOTE | 2019-03-31 16:23 | PDOC ---
Documentation entered by Dona Christiansen SCRIBE, acting as scribe for Octavio Wallace MD. Octavio Wallace MD: This documentation has been prepared by the Kuldip clark Adrianna, SCRIBE, under my direction and personally reviewed by me in its entirety. I confirm that the documentation accurately reflects all work, treatment, procedures, and medical decision making performed by me. Attending Attestation - Resident Resident Name: Edis Guan - ED Attending Attestation I have performed the following: I have examined & evaluated the patient, The case was reviewed & discussed with the resident, I agree w/resident's findings & plan, Exceptions are as noted - HPI HPI: 04/03/19 13:11 59 years old with cough wheezing history of COPD and emphysema - Physicial Exam PE: 04/03/19 13:12 Vitals: Triage Vital signs reviewed General Appearance: No acute distress, well nourished well developed, Head: Atraumatic, Cardiac: Tachycardic Lungs: Wheezing bilaterally good air movement bilaterally, Abdomen: Soft, non distended, normal bowel sounds, non tender to palpation Extremities: Full range of motion to all extremities, no cyanosis, clubbing, or edema Skin: Warm and dry, no rashes or lesions, no rash, no petechiae Psych: Normal mood, normal affect - Medical Decision Making 03/31/19 17:02 59 years old with emphysema COPD presents with signs and symptoms of clinical pneumonia We will treat with nebs steroids IV fluids ceftriaxone and azithromycin Dr. Delong will reassess patient in 1 to 2 hours if vital signs improved and patient feels better she can be discharged with Augmentin and azithromycin if patient remains symptomatic with abnormal vital signs will admit to medicine for further management
[2019-03-31] MEDS ORDERED: ACETAMINOPHEN INJECTION 100 ML IVPB ONE (16:42)
[2019-03-31] MEDS ORDERED: CEFTRIAXONE 1 GM/50 ML BAG ONE (16:43)
[2019-03-31] MEDS ORDERED: AZITHROMYCIN IVPB 500 MG/250 ML BAG IVPB ONE (16:43)
[2019-03-31] MEDS ORDERED: methylPREDNISolone NA SUCC 125 MG/2 ML VIAL ONE (16:43)
[2019-03-31 17:02] VITALS: TEMP 102.3
[2019-03-31] MEDS ORDERED: SODIUM CHLORIDE 0.9% 500 ML INFUS.BAG IV ONE (17:09)
[2019-03-31] MEDS ORDERED: KETOROLAC TROMETHAMINE 30 MG/1 ML VIAL IVPUSH ONE (18:01)
[2019-03-31 20:37] VITALS: BP 134/57; PULSE 85
--- NOTE | 2019-04-01 09:44 | EKG ---
Test Reason : Blood Pressure : / mmHG Vent. Rate : 121 BPM Atrial Rate : 121 BPM P-R Int : 140 ms QRS Dur : 080 ms QT Int : 312 ms P-R-T Axes : 082 045 072 degrees QTc Int : 443 ms POOR DATA QUALITY, INTERPRETATION MAY BE ADVERSELY AFFECTED SINUS TACHYCARDIA OTHERWISE NORMAL ECG WHEN COMPARED WITH ECG OF 25-MAY-2018 21:19, NO SIGNIFICANT CHANGE WAS FOUND Confirmed by GRAZYNA SAENZ, MICHELLE ([id number]) on 04/01/2019 9:44:12 AM Referred By: Confirmed By:MICHELLE GERONIMO MD
== END 2019-03-31 19:05 | disposition home or self-care (01) ==
LOC: JER 14:28
PROC: 3E0F7GC Introduction of Other Therapeutic Substance into Respiratory Tract, Via Natural or Artificial Opening (ICD-10-PCS; principal; 2019-03-31)
PROC: 3E03329 Introduction of Other Anti-infective into Peripheral Vein, Percutaneous Approach (ICD-10-PCS; 2019-03-31)
PROC: 3E033NZ Introduction of Analgesics, Hypnotics, Sedatives into Peripheral Vein, Percutaneous Approach (ICD-10-PCS; 2019-03-31)
DX: J44.9 Chronic obstructive pulmonary disease, unspecified (principal); Z87.891 Personal history of nicotine dependence; I25.2 Old myocardial infarction; I10 Essential (primary) hypertension; F41.9 Anxiety disorder, unspecified; R73.03 Prediabetes
CPT/HCPCS: 36415; 71045-TC-FY; 80053; 82550; 83735; 84484; 85025; 87804; 93005; 93010; 94664; 99285-25; J0131; J7030

== ENCOUNTER 2020-03-20 17:00 | Inpatient (IN) | payer OTHER ==
[2020-03-20 17:21] VITALS: BMI 26.5
--- OUTSIDE RECORDS SUMMARY | 2020-03-20 17:24 | XMS ---
:1960 Author Organization [facility] Support Name Relationship Address Phone UE Unavailable Unavailable Unavailable UNEMPLOYD Unavailable Unavailable Unavailable DISABLED Unavailable Unavailable Unavailable FAISAL DAUGHTER [address] [phone] [place] [address] FAISAL SON [address] [place] [address] Re-disclosure Warning The records that you are about to access may contain information from federally- assisted alcohol or drug abuse programs. If such information is present, then the following federally mandated warning applies: This information has been disclosed to you from records protected by federal confidentiality rules (42 CFR part 2). The federal rules prohibit you from making any further disclosure of this information unless further disclosure is expressly permitted by the written consent of the person to whom it pertains or as otherwise permitted by 42 CFR part 2. A general authorization for the release of medical or other information is NOT sufficient for this purpose. The Federal rules restrict any use of the information to criminally investigate or prosecute any alcohol or drug abuse patient.The records that you are about to access may contain highly sensitive health information, the redisclosure of which is protected by Article 27-F of the [facility] Public Health law. If you continue you may haveaccess to information: Regarding HIV / AIDS; Provided by facilities licensed or operated by the [facility] Office of Mental Health; or Provided by the [facility] Office for People With Developmental Disabilities. If such information is present, then the following [facility] mandated warning applies: This information has been disclosed to you from confidential records which are protected by state law. State law prohibits you from making any further disclosure of this information without the specific written consent of the person to whom it pertains, or as otherwise permitted by law. Any unauthorized further disclosure in violation of state law may result in a fine or fdc sentence or both. A general authorization for the release of medical or other information is NOT sufficient authorization for further disclosure. Insurance Providers Payer name Policy type Policy ID Covered Covered democrat's Policy P alla / Coverage democrat ID relationship to Law Inf ormation type law MEDICAID [id number] SP [id number] MEDICARE [id number] SP [id number] MEDICAID [id number] PT [id number] MEDICARE [id number] PT [id number]
[2020-03-20] MEDS ORDERED: methylPREDNISolone NA SUCC 125 MG/2 ML VIAL IVPB ONE (17:48)
[2020-03-20] MEDS ORDERED: methylPREDNISolone NA SUCC 125 MG/2 ML VIAL ONE (17:52)
[2020-03-20] MEDS ORDERED: ALBUTEROL SO4 2.5/IPRATROPIUM 0.5 INH SOL 3 ML VIAL.NEB. NEB ONE ×3 (17:52→21:02)
[2020-03-20] MEDS: ALBUTEROL SO4 2.5/IPRATROPIUM 0.5 INH SOL 3 ML VIAL.NEB. NEB SCH ×4 (17:55→18:47)
--- NOTE | 2020-03-20 18:43 | PDOC ---
Documentation entered by Andrew Gonzalez SCRIBE, acting as scribe for Clotilde Delong MD. Clotilde Delong MD: This documentation has been prepared by the scribe, Andrew Mendoza SCRIBE, under my direction and personally reviewed by me in its entirety. I confirm that the documentation accurately reflects all work, treatment, procedures, and medical decision making performed by me. Attending Attestation - Resident Resident Name: Qasim Rabago - ED Attending Attestation I have performed the following: I have examined & evaluated the patient, The case was reviewed & discussed with the resident, I agree w/resident's findings & plan, Exceptions are as noted - HPI HPI: 03/20/20 19:10 The patient is a 60 year old female with a significant past medical history of COPD and senior living tobacco use who presents to the emergency department for evaluation of shortness of breath and diffuse expiratory wheezing that began today. The patient reports using her at home inhaler today to no relief. The patient denies chest/abdominal/back pain, cough, fever, chills, nausea, vomiting, and/or any GI symptoms. Denies any symptoms. Denies any other symptoms. Allergies: NKA - Physicial Exam PE: 03/20/20 18:07 GENERAL: Well developed, well nourished. Awake and alert. No acute distress. HEENT: Normocephalic, atraumatic. PERRLA, EOMI. No conjunctival pallor. Sclera are non- icteric. Moist mucous membranes. Oropharynx is clear. NECK: Supple. Full ROM. No JVD. Carotid pulses 2+ and symmetric, without bruits. No thyromegaly. No lymphadenopathy. CARDIOVASCULAR: tachycardic Regular rate and rhythm. No murmurs, rubs, or gallops. Distal pulses are 2+ and symmetric. PULMONARY: +diffuse expiratory wheezing No evidence of respiratory distress. Lungs clear to auscultation bilaterally. No rales or rhonchi. ABDOMINAL: Soft. Non-tender. Non-distended. No rebound or guarding. No organomegaly. Normoactive bowel sounds. MUSCULOSKELETAL: Normal range of motion at all joints. No bony deformities or tenderness. No CVA tenderness. EXTREMITIES: No cyanosis. No clubbing. No edema. No calf tenderness. SKIN: Warm and dry. Normal capillary refill. No rashes. No jaundice. NEUROLOGICAL: Alert, awake, appropriate. Cranial nerves 2-12 intact. No deficits to light touch and temperature in face, upper extremities and lower extremities. No motor deficits in the in face, upper extremities and lower extremities. Normoreflexic in the upper and lower extremities. Normal speech. Toes are down-going bilaterally. Gait is normal without ataxia. PSYCHIATRIC: Cooperative. Good eye contact. Appropriate mood and affect. - Medical Decision Making 03/20/20 18:42 pt receiving IVF 03/20/20 21:03 pt receiving respiratory treatments,steroids and will be admitted for exacerbation copd Discharge - Discharge Information Problems reviewed: Yes Clinical Impression/Diagnosis: COPD exacerbation COPD (chronic obstructive pulmonary disease) Qualifiers: COPD type: COPD with acute exacerbation Qualified Code(s): J44.1 - Chronic obstructive pulmonary disease with (acute) exacerbation - Follow up/Referral - Patient Discharge Instructions - Post Discharge Activity
[2020-03-20] MEDS ORDERED: MAGNESIUM SULF 50% (8.12 MEQ/2 ML-1 GM VIAL) IVPB ONE (19:11)
[2020-03-20] MEDS ORDERED: MAGNESIUM SULFATE IN WATER 2 GM/50 ML IVPB IVPB ONE (19:19)
[2020-03-20] MEDS ORDERED: CEFTRIAXONE 1,000 MG in DEXTROSE 5%-WATER - 50 ML IVPB ONE (19:26)
[2020-03-20] MEDS ORDERED: AZITHROMYCIN IVPB 500 MG in DEXTROSE 5%-WATER - 250 ML IVPB ONE (19:27)
--- NOTE | 2020-03-20 19:27 | PDOC ---
History of Present Illness - General Chief Complaint: Shortness of Breath Stated Complaint: ASTHMA Time Seen by Provider: 03/20/20 17:47 - History of Present Illness Initial Comments: 03/20/20 20:10 60yo F with hx of emphysema, MD, and long smoking hx presents with night sweats, coughing, dizziness on exertion, and decreased exercise tolerance (cannot walk 20steps without becoming out of breath) Past History - Medical History Allergies/Adverse Reactions: Allergies Allergy/AdvReac Type Severity Reaction Status Date / Time No Known Allergies Allergy Verified 03/20/20 17:11 Home Medications: Ambulatory Orders Aspirin 325 mg PO Q48H 11/22/12 Albuterol 0.083% Nebulizer Janina [Ventolin 0.083% Nebulizer Soln -] 1 neb NEB Q6H #30 vial 01/10/16 Albuterol Sulfate Inhaler - [Ventolin HFA Inhaler -] 2 inh IH Q6H #1 inh Metoprolol Tartrate [Lopressor -] 50 mg PO BID 04/19/17 Atorvastatin Ca [Lipitor] 20 mg PO HS 03/20/20 Lisinopril [Prinivil] 20 mg PO DAILY 03/20/20 Omeprazole 20 mg PO DAILY 03/20/20 Umeclidinium [place] [Incruse Ellipta] 62.5 mcg IH BID 03/20/20 Zolpidem Tartrate [Ambien] 10 mg PO HS 03/20/20 Asthma: Yes Cardiac Disorders: Yes (MD) CVA: Yes COPD: Yes Diabetes: Yes (BORDERLINE) HTN: Yes Psychiatric Problems: Yes (ANXIETY) - Surgical History Abdominal Surgery: No Appendectomy: No Cardiac Surgery: No Cholecystectomy: No - Immunization History Immunization Up to Date: Yes - Psycho-Social/Smoking History Smoking Status: Yes Smoking History: Former smoker Have you smoked in the past 12 months: No Number of Cigarettes Smoked Daily: 0 If you are a former smoker, when did you quit?: 6 months ago Information on smoking cessation initiated: No 'Breaking Loose' booklet given: 05/26/18 Review of Systems - Review of Systems Able to Perform ROS?: Yes Is the patient limited Bhutanese proficient: No Constitutional: Yes: Chills, Diaphoresis, Malaise, Night Sweats. No: Unintentional Wgt. Loss, Unexplained wgt Loss HEENTM: No: Blurred Vision, Recent change in vision, Tinnitus, Difficulty Swallowing Respiratory: Yes: Cough, Orthopnea, Shortness of Breath, SOB with Exertion, SOB at Rest, Wheezing, Productive cough. No: Stridor, Hemoptysis Cardiac (ROS): Yes: Chest Pain, Edema, Lightheadedness, Chest Tightness. No: Syncope ABD/GI: No: Abdominal Distended, Abd. Pain w/ defecation, Constipated, Diarrhea, Nausea, Vomiting : No: Dysuria, Flank Pain, Hematuria Musculoskeletal: Yes: Back Pain. No: Joint Pain, Muscle Weakness Integumentary: Yes: Sweating. No: Bruising, Lesions, Rash Neurological: Yes: Headache, Dizziness. No: Numbness, Seizure, Unsteady Gait Endocrine: No: Excessive Sweating, Intolerance to Cold, Intolerance to Heat, Unexplained Weight Loss, Change in Weight Hematologic/Lymphatic: No: Symptoms Reported All Other Systems: Reviewed and Negative *Physical Exam - Vital Signs Last Vital Signs Temp Pulse Resp BP Pulse Ox 98 H 18 135/75 95 03/20/20 17:08 03/20/20 17:08 03/20/20 17:08 03/20/20 17:08 - Physical Exam General Appearance: Yes: Nourished, Appropriately Dressed, Apparent Distress, Mild Distress HEENT: positive: KELVIN. negative: Normal Voice (raspy voice) Neck: positive: Supple. negative: Tender Respiratory/Chest: positive: Respiratory Distress, Accessory Muscle Use, Decreased Breath Sounds. negative: Chest Tender, Lungs Clear (b/l wheeze and rales), Normal Breath Sounds Cardiovascular: positive: Regular Rhythm, Regular Rate Gastrointestinal/Abdominal: positive: Normal Bowel Sounds, Soft. negative: Distended, Guarding Musculoskeletal: positive: Normal Inspection. negative: CVA Tenderness Extremity: positive: Normal Capillary Refill, Normal Inspection, Normal Range of Motion Integumentary: positive: Normal Color, Warm, Clammy Neurologic: positive: Fully Oriented, Alert, Normal Response, Motor Strength 5/5 ED Treatment Course - LABORATORY CBC & Chemistry Diagram: 03/21/20 07:20 03/21/20 07:20 - Medications Given in the ED: ED Medications Discontinued Medications Generic Name Dose Route Start Last Admin Trade Name Freq PRN Reason Stop Dose Admin Albuterol/Ipratropium 1 amp 03/20/20 18:00 03/20/20 18:47 Duoneb - NEB 03/20/20 18:46 1 amp Q15M EFFIE Administration Methylprednisolone Sodium Succinate 125 mg 03/20/20 17:48 03/20/20 17:58 Solu-Medrol - IVPB 03/20/20 17:49 125 mg ONCE ONE Administration Discharge - Discharge Information Problems reviewed: Yes Clinical Impression/Diagnosis: COPD exacerbation COPD (chronic obstructive pulmonary disease) Qualifiers: COPD type: COPD with acute exacerbation Qualified Code(s): J44.1 - Chronic obstructive pulmonary disease with (acute) exacerbation - Admission Yes - Follow up/Referral - Patient Discharge Instructions - Post Discharge Activity
[2020-03-20 19:41] LABS: BASO % 0.8 % (0-2.0); EOS % 0.7 % (0-4.5); HEMATOCRIT 44.2 % (32.4-45.2); HEMOGLOBIN 14.6 GM/dL (10.7-15.3); LYMPH % 22.9 % (8-40); MCH 30.3 pg (25.7-33.7); MCHC 33.1 g/dl (32.0-36.0); MEAN CELL VOLUME 91.5 fl (80-96); MEAN PLT VOLUME 8.8 fl (7.5-11.1); MONO % 4.2 % (3.8-10.2); NEUT % 71.4 % (42.8-82.8); PLATELET COUNT 298 K/MM3 (134-434); RBC 4.83 M/mm3 (3.60-5.2); RDW 13.6 % (11.6-15.6); WHITE BLOOD COUNT 11.7 K/mm3 (4.0-10.0)
[2020-03-20] MEDS ORDERED: AZITHROMYCIN IVPB 500 MG/250 ML BAG IVPB ONE (19:42)
[2020-03-20] MEDS ORDERED: cefTRIAXone SODIUM 1 GM VIAL ONE (19:42)
[2020-03-20 20:01] LABS: ALK PHOS 130 U/L (45-117); ANION GAP 8 MMOL/L (8-16); BILIRUBIN,TOTAL 0.6 mg/dL (0.2-1); CHLORIDE 110 mmol/L (98-107); CO2 21 mmol/L (21-32); CREATININE 0.9 mg/dL (0.55-1.3); GLUCOSE,RANDOM 108 mg/dL (74-106); SGOT/AST 20 U/L (15-37); SGPT/ALT 22 U/L (13-61); SODIUM 139 mmol/L (136-145); TOT PROT 7.3 g/dl (6.4-8.2)
[2020-03-20 20:44] LABS: N-TERMINAL BNP 72.6 pg/ml (5-125)
--- NOTE | 2020-03-20 20:50 | PN ---
Teaching Attending Note Name of Resident: Migdalia Young ATTENDING PHYSICIAN STATEMENT I saw and evaluated the patient. I reviewed the resident's note and discussed the case with the resident. I agree with the resident's findings and plan as documented. SUBJECTIVE: Patient is a 60 year old woman with a PMH of HTN, HLD, COPD, NM, CVA, Borderline DM and halfway tobacco use who presents to the ER for evaluation of shortness of breath and diffuse expiratory wheezing that began today. The patient reports using her at home inhaler today to no relief. Has had associated cough with clear sputum, VERGARA and leg edema. Patient denies chest pain, abdominal pain, headache, palpitations, dizziness, fever, chills, nausea, vomiting, diarrhea, constipation, dysuria, frequency, urgency, melena, hematochezia or hematuria. Smokes marijuana. Denies alcohol or illicit drug use. No sick contacts or recent travels. Family history - mother of complications of multiple sclerosis and maternal grand mother of lung cancer. OBJECTIVE: Alert Vital Signs Period Temp Pulse Resp BP Sys/Belcher Pulse Ox Last 24 Hr 98 18 135/75 95 HEENT: No Jaundice, eye redness or discharge, PERRLA, EOMI. Normocephalic, atraumatic. External ears are normal and hearing is grossly intact. No nasal discharge. Neck: Supple, nontender. No palpable adenopathy or thyromegaly. No JVD Chest: Good effort. Clear to auscultation and percussion. Heart: Regular. No S3, rub or murmur Abdomen: Not distended, soft, nontender and no HSM. No rebound or guarding. Normal bowel sounds. Ext: Peripheral pulses intact. No leg edema. Skin: Warm and dry. No petechiae, rash or ecchymosis. Neuro: Alert. Oriented x3. CN 2-12 grossly intact. Sensation grossly intact in all four extremities and DTR are symmetric. Psych: Appropriate mood and affect. Good insight. Home Medications Medication Instructions Recorded Aspirin 325 mg PO Q48H 11/22/12 Albuterol 0.083% Nebulizer Janina 1 neb NEB Q6H #30 vial 01/10/16 [Ventolin 0.083% Nebulizer Soln -] Albuterol Sulfate Inhaler - 2 inh IH Q6H #1 inh 01/10/16 [Ventolin HFA Inhaler -] Metoprolol Tartrate [Lopressor -] 50 mg PO BID 04/19/17 Atorvastatin Ca [Lipitor] 20 mg PO HS 03/20/20 Lisinopril [Prinivil] 20 mg PO DAILY 03/20/20 Omeprazole 20 mg PO DAILY 03/20/20 Umeclidinium [place] [Incruse 62.5 mcg IH BID 03/20/20 Ellipta] Zolpidem Tartrate [Ambien] 10 mg PO HS 03/20/20 Abnormal Lab Results 03/20/20 03/20/20 19:17 19:17 WBC 11.7 H Absolute Neuts (auto) 8.4 H Chloride 110 H BUN 25.0 H Random Glucose 108 H Alkaline Phosphatase 130 H Current Medications Generic Name Dose Route Start Last Admin Trade Name Freq PRN Reason Stop Dose Admin Budesonide/Formoterol Fumarate 2 puff 03/21/20 10:00 Symbicort 160/4.5mcg - IH BID EFFIE Enoxaparin Sodium 40 mg 03/21/20 10:00 Lovenox - SQ DAILY EFFIE Azithromycin 250 mg/ Dextrose 250 mls @ 250 mls/hr 03/21/20 10:00 IVPB 03/22/20 10:00 DAILY EFFIE Methylprednisolone Sodium Succinate 40 mg 03/21/20 10:00 Solu-Medrol - IVPUSH Q8H-IV EFFIE ASSESSMENT AND PLAN: 1. COPD exacerbation - No obvious precipitating factor. No acute abnormality on CXR but shows chronic bilateral atelectatic changes. Will get ECHO, treat with Duoneb, Solumedrol 40 mg q 8 hours, Symbicort and Azithromycin 500 mg IV QD and monitor peak flow. Got IV MgSO4 in the ER. Provide daily wound care for leg ulcers. Consult Pulmonary/Podiatry. EKG shows NSR at 97/minute and QTc 467 with no significant acute ischemic ST-T wave changes. Initial troponin is negative. Will avoid drugs that may prolong QTc. Viral testing for COVID-19 ordered and patient placed on airborne, droplet and contact isolation. Started on supplemental oxygen via nasal cannula. Will continue comprehensive care for all of patients comorbid conditions. 2. Hypertension Will restart suitable outpatient antihypertensive drugs when clinically appropriate. Subsequently, will revise regimen to ensure [id number] excellent BP control. Patient counseled on the injurious effects of uncontrolled hypertension. Nonpharmacologic measures to control hypertension like weight loss, salt restriction and exercise stressed. Importance of adherence to treatment regimen and attainment of normotension emphasized. 2. Tobacco Use Counseled on risks associated with tobacco use. We will provide patient all the necessary assistance to facilitate smoking cessation and prescribe Nicotine patch. 3. DVT prophylaxis - Lovenox 40 mg SQ q 24 hours. 4. Advance directives - Full code
--- OUTSIDE RECORDS SUMMARY | 2020-03-20 21:24 | XMS ---
:1960 Author Organization [facility] Support Name Relationship Address Phone UE Unavailable Unavailable Unavailable UE Unavailable Unavailable Unavailable UNEMPLOYD Unavailable Unavailable Unavailable DISABLED Unavailable Unavailable Unavailable FAISAL DAUGHTER [address] [place] [address] FAISAL SON [address] [place] [address] Re-disclosure Warning The records that you are [...] is protected by Article 27-F of the [facility] Public Health law. If you continue you may haveaccess to information: Regarding HIV / AIDS; Provided by facilities licensed or operated by the [facility] Office of Mental Health; or Provided by the [facility] Office for People With Developmental Disabilities. If such information is present, then the following [facility] mandated warning applies: This information has [...] law may result in a fine or fpc sentence or both. A general authorization for the release of medical or other information is NOT sufficient authorization for further disclosure. Insurance Providers Payer name Policy type Policy ID Covered Covered green party's Policy P alla / Coverage green party ID relationship to Law Inf ormation type law MEDICAID [id number] SP [id number] MEDICARE [id number] SP [id number] MEDICAID [id number] PT [id number] MEDICARE [id number] PT [id number]
[2020-03-20 21:25] LABS: LDH 228 U/L (84-246)
--- NOTE | 2020-03-21 00:16 | HP ---
CHIEF COMPLAINT: Dyspnea and wheezing PCP: Dr. Day HISTORY OF PRESENT ILLNESS: Constance Bynum is a 60 year old woman with PMH COPD, MO (2014), CVA (2015), presenting with 4 days of worsening dyspnea, cough, and dizziness. Patient states that symptoms began 4 days ago, with worsening dyspnea, to the point she is no longer able to ambulate from her bedroom to the bathroom (~10feet) without being out of breath requiring a rest. She has been more active within the past week, as her daughter's rehearsal dinner was last night, and she had been helping coordinate the event. She does not use oxygen at home and has been using her inhalers more frequently, including waking up in the middle of the night to use them. She has had a new mild cough upon awakening in the morning, and is bringing up a whitish colored sputum. Within the past 4 days she is also experiencing increased episodes of dizziness while walking around, that subside after she sits and rests. Also reports lower extremity edema that past few days. She denies fever, chills, headache, chest pain, syncope, abdominal pain, nausea, vomiting, diarrhea, hematochezia. ER course was notable for: - Vitals: T 99.1, BP 135/75, RR 22, O2 sat 97% on 2L nasal cannula - CXR: hyperinflation; flattened diaphragm, no evidence of consolidation - Administration of duonebs, Zithromax, Rocephin, magnesium, solumedrol 125 with relief of dyspnea Recent Travel: None PAST MEDICAL HISTORY: COPD MO (2014) CVA (2014) PAST SURGICAL HISTORY: Cyst removal on R arm a few years ago -- unknown date Social History: Smoking: Former smoker (quit 4 years ago) -- had been smoking since age 17 Alcohol: No Drugs: Marijuana on the weekends Allergies No Known Allergies Allergy (Verified 03/20/20 17:11) HOME MEDICATIONS: Home Medications Medication Instructions Recorded Aspirin 325 mg PO Q48H 11/22/12 Albuterol 0.083% Nebulizer Janina 1 neb NEB Q6H #30 vial 01/10/16 [Ventolin 0.083% Nebulizer Soln -] Albuterol Sulfate Inhaler - 2 inh IH Q6H #1 inh 01/10/16 [Ventolin HFA Inhaler -] Metoprolol Tartrate [Lopressor -] 50 mg PO BID 04/19/17 Atorvastatin Ca [Lipitor] 20 mg PO HS 03/20/20 Lisinopril [Prinivil] 20 mg PO DAILY 03/20/20 Omeprazole 20 mg PO DAILY 03/20/20 Umeclidinium [place] [Incruse 62.5 mcg IH BID 03/20/20 Ellipta] Zolpidem Tartrate [Ambien] 10 mg PO HS 03/20/20 REVIEW OF SYSTEMS SEE HPI PHYSICAL EXAMINATION Vital Signs - 24 hr 03/20/20 03/20/20 17:08 22:10 Pulse Rate 98 H Pulse Rate [ 89 Left] Respiratory 18 22 H Rate Blood Pressure 135/75 Blood Pressure 121/69 [Left Arm] O2 Sat by Pulse 95 100 Oximetry (%) GENERAL: Awake, alert, and fully oriented, in no acute distress. HEAD: Normal with no signs of trauma. EYES: Pupils equal, round and reactive to light, extraocular movements intact EARS, NOSE, THROAT: Ears normal, nares patent, oropharynx clear without exudates. Moist mucous membranes. LUNGS: Breath sounds equal, clear to auscultation with decreased breath sounds at the bases. No wheezes, and no crackles. No accessory muscle use. HEART: Tachycardia, with regular rhythm, normal S1 and S2 without murmur ABDOMEN: Soft, nontender, not distended, normoactive bowel sounds, no guarding, no rebound, no masses. LOWER EXTREMITIES: 2+ pulses, warm, well-perfused. No calf tenderness. No peripheral edema. NEUROLOGICAL: Cranial nerves II-XII intact. Normal speech. Normal gait. PSYCHIATRIC: Cooperative. Good eye contact. Appropriate mood and affect. Laboratory Results - last 24 hr 03/20/20 03/20/20 03/20/20 19:17 19:17 21:08 WBC 11.7 H RBC 4.83 Hgb 14.6 Hct 44.2 MCV 91.5 MCH 30.3 MCHC 33.1 RDW 13.6 Plt Count 298 MPV 8.8 Absolute Neuts (auto) 8.4 H Neutrophils % 71.4 Lymphocytes % 22.9 D Monocytes % 4.2 Eosinophils % 0.7 Basophils % 0.8 Nucleated RBC % 0 D-Dimer 281 Sodium 139 Potassium 4.0 Chloride 110 H Carbon Dioxide 21 Anion Gap 8 BUN 25.0 H Creatinine 0.9 Est GFR (CKD-EPI)AfAm 81.69 Est GFR (CKD-EPI)NonAf 70.48 Random Glucose 108 H Calcium 9.0 Magnesium 2.0 Ferritin 122.0 Total Bilirubin 0.6 AST 20 ALT 22 Alkaline Phosphatase 130 H LD Total 228 Troponin I < 0.02 C-Reactive Protein 0.4 H B-Natriuretic Peptide 72.6 Total Protein 7.3 Albumin 4.0 ASSESSMENT/PLAN: Constance Bynum is a 60 year old woman with PMH COPD, MO (2014), CVA (2015), presenting with 4 days of worsening dyspnea, cough, and dizziness, ED labs notable for WBC 11.7, CXR demonstrating hyperinflation with flattened diaphragm. #COPD Exacerbation - Symptoms consistent w/ COPD exacerbation: wheezing, increased sputum - CXR revealing hyperinflation with no acute consolidation - Relief of dyspnea following duonebs in ED - Received 1 dose Rocephin and Azithromycin 500 in ED - Continue Azithromycin 250 - No evidence of consolidation on CXR; will discontinue Rocephin at this time - Solumedrol 40 q8 - Symbicort - Goal -- supplemental oxygen to 88-92 - Advise use of peak flow meter on flow to further assess improvement #Dizziness - Likely secondary to decreased po intake - Given recent orthopnea, edema, dyspnea, cardio consult to r/o HR - F/u ECHO #History of pre-diabetes - F/u hemoglobin A1c #Hypertension - Resume BP meds after med rec DVT Prophylaxis: Lovenox 40 sq FEN - No standing fluids - Monitor am labs - Low sodium diet Disposition: MED/SURG Family Medical History Family History: As Documented Visit type - Emergency Visit Emergency Visit: Yes ED Registration Date: 03/20/20 Care time: The patient presented to the Emergency Department on the above date and was hospitalized for further evaluation of their emergent condition. - New Patient This patient is new to me today: Yes Date on this admission: 03/21/20 - Critical Care Critical Care patient: No ATTENDING PHYSICIAN STATEMENT I saw and evaluated the patient. I reviewed the resident's note and discussed the case with the resident. I agree with the resident's findings and plan as documented. SUBJECTIVE: OBJECTIVE: ASSESSMENT AND PLAN:
[2020-03-21] MEDS ORDERED: ZOLPIDEM TARTRATE 5 MG TABLET PO STA (01:16)
[2020-03-21] MEDS ORDERED: ZOLPIDEM TARTRATE 5 MG TABLET ONE (01:23)
[2020-03-21 07:37] LABS: BASO % 0.3 % (0-2.0); HEMATOCRIT 40.3 % (32.4-45.2); HEMOGLOBIN 13.6 GM/dL (10.7-15.3); LYMPH % 7.4 % (8-40); MCH 30.8 pg (25.7-33.7); MCHC 33.9 g/dl (32.0-36.0); MEAN CELL VOLUME 91.1 fl (80-96); MEAN PLT VOLUME 8.5 fl (7.5-11.1); MONO % 1.1 % (3.8-10.2); NEUT % 91.2 % (42.8-82.8); PLATELET COUNT 271 K/MM3 (134-434); RBC 4.42 M/mm3 (3.60-5.2); RDW 13.5 % (11.6-15.6); WHITE BLOOD COUNT 9.7 K/mm3 (4.0-10.0)
[2020-03-21 08:08] LABS: ALBUMIN 3.5 g/dl (3.4-5.0); BILIRUBIN,TOTAL 0.4 mg/dL (0.2-1); BLOOD UREA NITROGEN 20.9 mg/dL (7-18); CALCIUM 8.8 mg/dL (8.5-10.1); CREATININE 0.7 mg/dL (0.55-1.3); POTASSIUM 4.6 mmol/L (3.5-5.1); TOT PROT 6.7 g/dl (6.4-8.2)
--- NOTE | 2020-03-21 08:29 | PN ---
Progress Note (short form) - Note Progress Note: records reviewed CBC, BMP 03/21/20 07:20 03/21/20 07:20 Ddimer, BNP negative CXR no acute infiltrate covid 19 pending Vital Signs Period Temp Pulse Resp BP Sys/Belcher Pulse Ox Last 24 Hr 98.5 F 87-98 18-22 94-135/60-78 94-100 s1s2 rrr lungs poor air entry, scattered exp wheezing abd soft no edema aaox3 no fcal deficit has deep cough 60 yo lady with PMH of COPD, HTN, high cholesterol Acute COPD exacerbation +- bronchitis? covid 19 pending iv steroids iv abx bronchodilator o2 prn HTN controlled high cholesterol resume atorvastatin GI/DVT prophylaxis
[2020-03-21 09:00] LABS: ANISOCYTOSIS 0; MACROCYTOSIS 0; PLATELET ESTIMATE NORMAL
[2020-03-21] MEDS ORDERED: PT OWN MED DRAWER 7, Y5N ONE (09:25)
[2020-03-21] MEDS: ENOXAPARIN NA (PORCINE) 40 MG/0.4 ML DISP.SYRIN SQ SCH (09:49)
[2020-03-21] MEDS: BUDESONIDE/FORMETEROL FUMARATE 160/4.5 mcg INHALER IH SCH ×2 (09:49→21:06)
[2020-03-21] MEDS: methylPREDNISolone NA SUCC 40 MG/1 ML VIAL IVPUSH SCH ×2 (09:49→17:38)
[2020-03-21] MEDS: METOPROLOL TARTRATE 50 MG TABLET (FP) PO SCH ×2 (09:50→21:05)
[2020-03-21] MEDS: PANTOPRAZOLE 20 MG TABLET PO SCH (09:50)
[2020-03-21] MEDS: AZITHROMYCIN IVPB 250 MG in DEXTROSE 5%-WATER - 250 ML IVPB SCH (10:04)
--- NOTE | 2020-03-21 11:49 | EKG ---
Test Reason : Blood Pressure : / mmHG Vent. Rate : 097 BPM Atrial Rate : 097 BPM P-R Int : 142 ms QRS Dur : 078 ms QT Int : 368 ms P-R-T Axes : 072 054 057 degrees QTc Int : 467 ms NORMAL SINUS RHYTHM NORMAL ECG WHEN COMPARED WITH ECG OF 31-MAR-2019 14:26, NO SIGNIFICANT CHANGE WAS FOUND Confirmed by JOSE PUCKETT MD ([id number]) on 03/21/2020 11:48:31 AM Referred By: Confirmed By:JOSE PUCKETT MD
[2020-03-21] MEDS: guaiFENesin 200 MG/10 ML 10 ML UNIT-DOSE CUPS PO PRN (12:00)
[2020-03-21] MEDS: ALBUTEROL SO4 0.083% IH SOL 2.5 MG/3 ML VIAL.NEB. NEB PRN ×2 (12:00→20:55)
--- NOTE | 2020-03-21 12:30 | CON.CARD ---
Cardiology Consult (text) - Consultation Consultation Note: cc: sob hpi: 60 f hx cva, MD, copd, htn, hld here with sob. Past week with moderate sob, worse with exertion, no associated sxs. No cp palps dizzy loc pnd orthopnea le edema. Feeling better after iv steroids. pmh: per hpi psh: cyst removed from arm social: ex tob fam: no premature cad, scd ros: per hpi; all others nl meds: Home Medications Medication Instructions Recorded Aspirin 325 mg PO Q48H 11/22/12 Albuterol 0.083% Nebulizer Janina 1 neb NEB Q6H #30 vial 01/10/16 [Ventolin 0.083% Nebulizer Soln -] Albuterol Sulfate Inhaler - 2 inh IH Q6H #1 inh 01/10/16 [Ventolin HFA Inhaler -] Metoprolol Tartrate [Lopressor -] 50 mg PO BID 04/19/17 Atorvastatin Ca [Lipitor] 20 mg PO HS 03/20/20 Lisinopril [Prinivil] 20 mg PO DAILY 03/20/20 Omeprazole 20 mg PO DAILY 03/20/20 Umeclidinium [place] [Incruse 62.5 mcg IH BID 03/20/20 Ellipta] Zolpidem Tartrate [Ambien] 10 mg PO HS 03/20/20 pe: Vital Signs Period Temp Pulse Resp BP Sys/Belcher Pulse Ox Last 24 Hr 98.5 F 87-98 18-22 94-135/60-78 94-100 nad no jvd rrr s1s2 no mrg bl exp wheeze, nl eff aao3 no le e/c/c abd nt nd pos bs no jaundice diaphoresis pos dp pt no carotid bruits Laboratory Last Values WBC 9.7 K/mm3 (4.0-10.0) 03/21/20 07:20 RBC 4.42 M/mm3 (3.60-5.2) 03/21/20 07:20 Hgb 13.6 GM/dL (10.7-15.3) 03/21/20 07:20 Hct 40.3 % (32.4-45.2) 03/21/20 07:20 MCV 91.1 fl (80-96) 03/21/20 07:20 MCH 30.8 pg (25.7-33.7) 03/21/20 07:20 MCHC 33.9 g/dl (32.0-36.0) 03/21/20 07:20 RDW 13.5 % (11.6-15.6) 03/21/20 07:20 Plt Count 271 K/MM3 (134-434) 03/21/20 07:20 MPV 8.5 fl (7.5-11.1) 03/21/20 07:20 Absolute Neuts (auto) 8.9 K/mm3 (1.5-8.0) H 03/21/20 07:20 Neutrophils % 91.2 % (42.8-82.8) H D 03/21/20 07:20 Neutrophils % (Manual) 87.0 % (42.8-82.8) H 03/21/20 07:20 Band Neutrophils % 2.0 % 03/21/20 07:20 Lymphocytes % 7.4 % (8-40) L D 03/21/20 07:20 Lymphocytes % (Manual) 8.0 % (8-40) 03/21/20 07:20 Monocytes % 1.1 % (3.8-10.2) L 03/21/20 07:20 Monocytes % (Manual) 1 % (3.8-10.2) L 03/21/20 07:20 Eosinophils % 0.0 % (0-4.5) D 03/21/20 07:20 Eosinophils % (Manual) 0.0 % (0-4.5) 03/21/20 07:20 Basophils % 0.3 % (0-2.0) 03/21/20 07:20 Basophils % (Manual) 0.0 % (0-2.0) 03/21/20 07:20 Myelocytes % (Man) 0 % (0-2) 03/21/20 07:20 Promyelocytes % (Man) 0 % (0-2) 03/21/20 07:20 Blast Cells % (Manual) 0 % (0-0) 03/21/20 07:20 Nucleated RBC % 0 % (0-0) 03/21/20 07:20 Metamyelocytes 0 % (0-2) 03/21/20 07:20 Hypochromia 0 03/21/20 07:20 Platelet Estimate Normal 03/21/20 07:20 Polychromasia 0 03/21/20 07:20 Poikilocytosis 0 03/21/20 07:20 Anisocytosis 0 03/21/20 07:20 Microcytosis 0 03/21/20 07:20 Macrocytosis 0 03/21/20 07:20 D-Dimer 281 ng/ml (0-500) 03/20/20 21:08 Sodium 137 mmol/L (136-145) 03/21/20 07:20 Potassium 4.6 mmol/L (3.5-5.1) 03/21/20 07:20 Chloride 108 mmol/L (98-107) H 03/21/20 07:20 Carbon Dioxide 22 mmol/L (21-32) 03/21/20 07:20 Anion Gap 7 MMOL/L (8-16) L 03/21/20 07:20 BUN 20.9 mg/dL (7-18) H 03/21/20 07:20 Creatinine 0.7 mg/dL (0.55-1.3) 03/21/20 07:20 Est GFR (CKD-EPI)AfAm 110.69 03/21/20 07:20 Est GFR (CKD-EPI)NonAf 95.50 03/21/20 07:20 Random Glucose 127 mg/dL (74-106) H 03/21/20 07:20 Hemoglobin A1c % 5.8 % (4.2-6.3) 03/21/20 07:20 Calcium 8.8 mg/dL (8.5-10.1) 03/21/20 07:20 Magnesium 2.0 mg/dL (1.8-2.4) 03/20/20 19:17 Ferritin 122.0 ng/ml (8-388) 03/20/20 19:17 Total Bilirubin 0.4 mg/dL (0.2-1) 03/21/20 07:20 AST 14 U/L (15-37) L 03/21/20 07:20 ALT 19 U/L (13-61) 03/21/20 07:20 Alkaline Phosphatase 119 U/L (45-117) H 03/21/20 07:20 LD Total 228 U/L (84-246) 03/20/20 19:17 Troponin I < 0.02 ng/ml (0.00-0.05) 03/21/20 02:54 C-Reactive Protein 0.4 MG/DL (0.00-0.3) H 03/20/20 19:17 B-Natriuretic Peptide 72.6 pg/ml (5-125) 03/20/20 19:17 Total Protein 6.7 g/dl (6.4-8.2) 03/21/20 07:20 Albumin 3.5 g/dl (3.4-5.0) 03/21/20 07:20 tele: sr ecg: sr nl intervals no ischemic changes cxr: no chf a/p: 60 f hx cva, MD, copd, htn, hld here with sob. sob, acute copd: -no signs chf, bnp low. no signs acs -likely copd etiology of current sxs -echo pending MD: -pt reports that approx 2014 had echo, stress test and was told she had evidence of prior MD, no cath done -currently no signs acs -echo pending -cont home asa, statin, bb, rocky-i cva: -remote, cont home cardiac meds htn: -cont home meds hld: -cont home statin
--- NOTE | 2020-03-21 12:34 | CON.PULM ---
Consult Consult Specialty:: PULMONARY Referred by:: Dr Sosa Reason for Consultation:: shortness of breath - History of Present Illness Chief Complaint: shortness of breath History of Present Illness: 60yo female with h/o CAD, COPD, h/o CVA who was admitted with worsening shortness of breath x 4 days. Reports chest tightness, nonproductive cough and significant wheezing. No fevers or sweats but with chills. No sick contacts or recent travel. Reports compliance with her inhalers, used her nebulizers without relief. Stopped smoking 4 years ago. - History Source History Provided By: Patient, Medical Record Limitations to Obtaining History: No Limitations - Past Medical History Cardio/Vascular: Yes: HTN, Hyperlipdemia Pulmonary: Yes: COPD (moderate-severe) ...LMP: 09/07/15 ...: No (postmena..) - Alcohol/Substance Use Hx Alcohol Use: No - Smoking History Smoking history: Former smoker Have you smoked in the past 12 months: No Aproximately how many cigarettes per day: 0 If you are a former smoker, when did you quit?: 5 years ago - Social History ADL: Independent History of Recent Travel: No Home Medications - Allergies Allergies/Adverse Reactions: Allergies Allergy/AdvReac Type Severity Reaction Status Date / Time No Known Allergies Allergy Verified 03/20/20 17:11 - Home Medications Home Medications: Ambulatory Orders Aspirin 325 mg PO Q48H 11/22/12 Albuterol 0.083% Nebulizer Janina [Ventolin 0.083% Nebulizer Soln -] 1 neb NEB Q6H #30 vial 01/10/16 Albuterol Sulfate Inhaler - [Ventolin HFA Inhaler -] 2 inh Q6H #1 inh 01/10/16 Metoprolol Tartrate [Lopressor -] 50 mg PO BID 04/19/17 Atorvastatin Ca [Lipitor] 20 mg PO HS 03/20/20 Lisinopril [Prinivil] 20 mg PO DAILY 03/20/20 Omeprazole 20 mg PO DAILY 03/20/20 Umeclidinium Lind [Incruse Ellipta] 62.5 mcg IH BID 03/20/20 Zolpidem Tartrate [Ambien] 10 mg PO HS 03/20/20 Review of Systems - Review of Systems Constitutional: reports: Chills. denies: Fever Eyes: denies: Recent Change in Vision HENT: denies: Nasal Congestion, Throat Pain Neck: denies: Stiffness, Tenderness Cardiovascular: reports: Shortness of Breath. denies: Chest Pain, Edema Respiratory: reports: Cough, Exercise Intolerance, Wheezing. denies: Hemoptysis Gastrointestinal: denies: Abdominal Pain, Nausea, Vomiting Genitourinary: denies: Dysuria, Hematuria Neurological: denies: Dizziness, Headache Endocrine: denies: Unexplained Weight Loss Physical Exam Vital Sings: Vital Signs Temperature 98.5 F 03/21/20 03:48 Pulse Rate 91 H 03/21/20 09:00 Respiratory Rate 20 03/21/20 09:00 Blood Pressure 105/65 03/21/20 09:00 O2 Sat by Pulse Oximetry (%) 98 03/21/20 09:00 Constitutional: Yes: Mild Distress Eyes: Yes: Conjunctiva Clear, EOM Intact HENT: Yes: Atraumatic, Normocephalic Neck: Yes: Supple, Trachea Midline Cardiovascular: Yes: Regular Rate and Rhythm Respiratory: Yes: Poor Air Entry, Wheezes ...Clubbing: No Gastrointestinal: Yes: Normal Bowel Sounds, Soft. No: Tenderness Edema: No Neurological: Yes: Alert, Oriented Labs: CBC, BMP 03/21/20 07:20 03/21/20 07:20 Imaging - Results Chest X-ray: Report Reviewed, Image Reviewed (no infiltrates) Assessment/Plan Acute COPD Exacerbation CAD h/o CVA - IV medrol - inhaled bronchodilators standing and PRN - O2 to keep SpO2 >90% - azithromycin - DVT prophylaxis Thank you for this consult Gerardo Verduzco MD
[2020-03-21] MEDS ORDERED: ALBUTEROL SO4 HFA INHALER IH SCH (12:45)
--- NOTE | 2020-03-21 15:23 | ECHO ---
Name: DAVON GARCIA Exam:Adult Echocardiogram Study Date: 03/21/2020 11:29 AM Age: 60 yrs Height: 63 in Weight: 150 lb BSA: 1.7 m2 HR: 88 MMode/2D Measurements & Calculations IVSd: 0.97 cm Ao root diam: 2.9 cm LVIDd: 3.8 cm LA dimension: 3.6 cm LVIDs: 2.4 cm ACS: 1.7 cm LVPWd: 0.94 cm EDV(Teich): 61.3 ml LVOT diam: 2.0 cm ESV(Teich): 20.8 ml Doppler Measurements & Calculations MV E max vasyl: 66.6 cm/sec Ao V2 max: 107.2 cm/sec MV A max vasyl: 76.0 cm/sec Ao max P.6 mmHg MV E/A: 0.88 Ao V2 mean: 73.1 cm/sec MV dec time: 0.17 sec Ao mean P.5 mmHg Ao V2 VTI: 20.3 cm MYNOR(I,D): 2.5 cm2 MYNOR(V,D): 2.3 cm2 LV V1 max P.3 mmHg SV(LVOT): 50.8 ml LV V1 mean P.1 mmHg LV V1 max: 75.5 cm/sec LV V1 mean: 45.5 cm/sec LV V1 VTI: 15.9 cm TV V2 max: 224.0 cm/sec PA V2 max: 77.4 cm/sec TV max P.1 mmHg PA max P.4 mmHg Tech Comments Unable to see Apical window due to extensive COPD. Procedure Technically limited study Poor visualization of all images. Left Ventricle Poor visualization of endocardial border definition precludes accurate assessment of LV function. Right Ventricle The right ventricle is not well visualized. Atria The left atrial size is normal. Right atrial size is normal. Mitral Valve The mitral valve is normal in structure and function. There is no mitral regurgitation noted. Tricuspid Valve The tricuspid valve is not well visualized. Aortic Valve The aortic valve is not well visualized. Pulmonic Valve The pulmonic valve is not well visualized. Great Vessels The aortic root is normal size. Pericardium/Pleura There is no pericardial effusion. Interpretation Summary Technically limited study Poor visualization of all images Poor visualization of endocardial border definition precludes accurate assessment of LV function The right ventricle is not well visualized. Valvular regurgitations are not well visualized due to poor acoustic window There is no pericardial effusion. Kevin Lambert MD 03/21/2020 03:23 PM
[2020-03-21] MEDS: ALBUTEROL SO4 2.5/IPRATROPIUM 0.5 INH SOL 3 ML VIAL.NEB. NEB SCH ×2 (15:58→20:55)
[2020-03-21] MEDS ORDERED: ACETAMINOPHEN 325 MG TABLET (FP) PO ONE ×2 (18:07→23:01)
[2020-03-21] MEDS ORDERED: ACETAMINOPHEN 325 MG TABLET (FP) ONE (18:08)
[2020-03-21] MEDS: ATORVASTATIN CA 20 MG TABLET (FP) PO SCH (21:05)
[2020-03-21] MEDS: ZOLPIDEM TARTRATE 5 MG TABLET PO PRN (22:41)
[2020-03-22] MEDS: methylPREDNISolone NA SUCC 40 MG/1 ML VIAL IVPUSH SCH ×3 (02:57→17:13)
[2020-03-22] MEDS: ALBUTEROL SO4 2.5/IPRATROPIUM 0.5 INH SOL 3 ML VIAL.NEB. NEB SCH ×4 (07:35→20:55)
--- NOTE | 2020-03-22 08:12 | PN ---
Progress Note (short form) - Note Progress Note: Vital Signs Period Temp Pulse Resp BP Sys/Belcher Pulse Ox Last 24 Hr 97.9 F-98.0 F 75-91 20-20 90-120/58-73 94-98 s1s2 rrr lungs poor air entry, few exp wheezing abd soft no edema aaox3 no focal deficit has deep cough echo very poor quality without gross abnormalities 60 yo lady with PMH of COPD, HTN, high cholesterol Acute COPD exacerbation +- bronchitis? covid 19 negative iv steroids iv abx bronchodilator o2 prn HTN controlled resume asa high cholesterol resume atorvastatin GI/DVT prophylaxis
[2020-03-22] MEDS: PANTOPRAZOLE 20 MG TABLET PO SCH (09:49)
[2020-03-22] MEDS: ASPIRIN COATED 81 MG TABLET.EC PO SCH (09:49)
[2020-03-22] MEDS: METOPROLOL TARTRATE 50 MG TABLET (FP) PO SCH ×2 (09:49→21:32)
[2020-03-22] MEDS: ENOXAPARIN NA (PORCINE) 40 MG/0.4 ML DISP.SYRIN SQ SCH (09:53)
[2020-03-22] MEDS: AZITHROMYCIN IVPB 250 MG in DEXTROSE 5%-WATER - 250 ML IVPB SCH (09:55)
[2020-03-22] MEDS: BUDESONIDE/FORMETEROL FUMARATE 160/4.5 mcg INHALER IH SCH ×2 (10:17→21:33)
--- NOTE | 2020-03-22 12:22 | PN ---
Progress Note (short form) - Note Progress Note: Breathing feels a little better today. Less SOB. No CP. No acute events overnight. Intake & Output 03/19/20 03/20/20 03/21/20 03/22/20 23:59 23:59 23:59 23:59 Intake Total 650 Balance 650 Weight 150 lb 150 lb Last Vital Signs Temp Pulse Resp BP Pulse Ox 98 F 78 20 110/73 97 03/22/20 06:00 03/22/20 06:00 03/22/20 06:00 03/22/20 06:00 03/22/20 06:00 Active Medications Albuterol Sulfate (Ventolin 0.083% Nebulizer Soln -) 1 amp NEB Q4H PRN PRN Reason: SHORT OF BREATH/WHEEZING Last Admin: 03/21/20 20:55 Dose: 1 amp Documented by: Albuterol/Ipratropium (Duoneb -) 1 amp NEB RQID [facility] Last Admin: 03/22/20 11:18 Dose: 1 amp Documented by: Aspirin (Ecotrin -) 81 mg PO DAILY [facility] Last Admin: 03/22/20 09:49 Dose: 81 mg Documented by: Atorvastatin Calcium (Lipitor -) 20 mg PO HS [facility] Last Admin: 03/21/20 21:05 Dose: 20 mg Documented by: Budesonide/Formoterol Fumarate (Symbicort 160/4.5mcg -) 2 puff IH BID [facility] Last Admin: 03/22/20 10:17 Dose: 2 puff Documented by: Enoxaparin Sodium (Lovenox -) 40 mg SQ DAILY [facility] Last Admin: 03/22/20 09:53 Dose: 40 mg Documented by: Guaifenesin (Robitussin -) 10 ml PO Q6H PRN PRN Reason: COUGH Last Admin: 03/21/20 12:00 Dose: 10 ml Documented by: Methylprednisolone Sodium Succinate (Solu-Medrol -) 40 mg IVPUSH Q8H-IV [facility] Last Admin: 03/22/20 09:49 Dose: 40 mg Documented by: Metoprolol Tartrate (Lopressor -) 50 mg PO BID [facility] Last Admin: 03/22/20 09:49 Dose: 50 mg Documented by: Pantoprazole Sodium (Protonix -) 20 mg PO DAILY [facility] Last Admin: 10/13/20 09:49 Dose: 20 mg Documented by: Zolpidem Tartrate (Ambien -) 10 mg PO HS PRN PRN Reason: INSOMNIA Last Admin: 03/21/20 22:41 Dose: 10 mg Documented by: Constitutional: Yes: NAD Eyes: Yes: Conjunctiva Clear, EOM Intact HENT: Yes: Atraumatic, Normocephalic Neck: Yes: Supple, Trachea Midline Cardiovascular: Yes: Regular Rate and Rhythm Respiratory: Yes: Poor Air Entry, Bilateral expiratory Wheezes ...Clubbing: No Gastrointestinal: Yes: Normal Bowel Sounds, Soft. No: Tenderness Edema: No Neurological: Yes: Alert, Oriented Labs: Laboratory Results - last 24 hr 03/20/20 19:17 COVID-19 (MARCI[place]) Not detected Imaging - Results Chest X-ray: Report Reviewed, Image Reviewed (no infiltrates) Assessment/Plan Acute COPD Exacerbation CAD h/o CVA - IV medrol - inhaled bronchodilators standing and PRN - O2 to keep SpO2 >90% - azithromycin - DVT prophylaxis Dr Moura
--- NOTE | 2020-03-22 13:29 | PN ---
Progress Note (short form) - Note Progress Note: cc: sob s: no chest pain, palps, dizziness. breathing better Current Medications Generic Name Dose Route Start Last Admin Trade Name Freq PRN Reason Stop Dose Admin Albuterol Sulfate 1 amp 03/21/20 08:24 03/21/20 20:55 Ventolin 0.083% Nebulizer Soln - NEB 1 amp Q4H PRN Administration SHORT OF BREATH/WHEEZING Albuterol/Ipratropium 1 amp 03/21/20 16:00 03/22/20 11:18 Duoneb - NEB 1 amp RQID EFFIE Administration Aspirin 81 mg 03/22/20 10:00 03/22/20 09:49 Ecotrin - PO 81 mg DAILY EFFIE Administration Atorvastatin Calcium 20 mg 03/21/20 22:00 03/21/20 21:05 Lipitor - PO 20 mg HS EFFIE Administration Budesonide/Formoterol Fumarate 2 puff 03/21/20 10:00 03/22/20 10:17 Symbicort 160/4.5mcg - IH 2 puff BID EFFIE Administration Enoxaparin Sodium 40 mg 03/21/20 10:00 03/22/20 09:53 Lovenox - SQ 40 mg DAILY EFFIE Administration Guaifenesin 10 ml 03/21/20 08:29 03/21/20 12:00 Robitussin - PO 10 ml Q6H PRN Administration COUGH Methylprednisolone Sodium Succinate 40 mg 03/21/20 10:00 03/22/20 09:49 Solu-Medrol - IVPUSH 40 mg Q8H-IV EFFIE Administration Metoprolol Tartrate 50 mg 03/21/20 10:00 03/22/20 09:49 Lopressor - PO 50 mg BID EFFIE Administration Pantoprazole Sodium 20 mg 03/21/20 10:00 03/22/20 09:49 Protonix - PO 20 mg DAILY EFFIE Administration Zolpidem Tartrate 10 mg 03/21/20 08:25 03/21/20 22:41 Ambien - PO 10 mg HS PRN Administration INSOMNIA Vital Signs Period Temp Pulse Resp BP Sys/Belcher Pulse Ox Last 24 Hr 97.9 F-98.0 F 75-82 20-20 90-112/58-73 94-97 nad no jvd rrr s1s2 no mrg bl exp wheeze, nl eff aao3 no le e/c/c abd nt nd pos bs no jaundice diaphoresis pos dp pt no carotid bruits tele: sr ecg: sr nl intervals no ischemic changes cxr: no chf echo 03/2020 poor visualization of all images, cannot evaluate LV function, valves not well visualized a/p: 60 f hx cva, [place], copd, htn, hld here with sob. sob, acute copd: -no signs chf, bnp low. no signs acs -likely copd etiology of current sxs -echo uninterpretable - would defer further cardiac workup given improving with treatment for COPD exac, can consider repeat echo as outpatient [place]: -pt reports that approx 2014 had echo, stress test and was told she had evidence of prior [place], no cath done -currently no signs acs -cont home asa, statin, bb, rocky-i cva: -remote, cont home cardiac meds htn: -cont home meds hld: -cont home statin
[2020-03-22] MEDS: ATORVASTATIN CA 20 MG TABLET (FP) PO SCH (21:32)
[2020-03-22] MEDS: ZOLPIDEM TARTRATE 5 MG TABLET PO PRN (22:41)
[2020-03-23] MEDS: methylPREDNISolone NA SUCC 40 MG/1 ML VIAL IVPUSH SCH ×4 (02:19→21:36)
[2020-03-23] MEDS: ALBUTEROL SO4 2.5/IPRATROPIUM 0.5 INH SOL 3 ML VIAL.NEB. NEB SCH ×4 (08:00→20:24)
--- NOTE | 2020-03-23 08:15 | PN ---
Progress Note (short form) - Note Progress Note: CBC, BMP 03/21/20 07:20 03/21/20 07:20 Vital Signs Period Temp Pulse Resp BP Sys/Belcher Pulse Ox Last 24 Hr 98.1 F-98.8 F 72-97 20-21 125-135/66-92 95-99 s1s2 rrr lungs diffuse exp.wheezing abd soft no edema aaox3 no focal deficit echo very poor quality without gross abnormalities 60 yo lady with PMH of COPD, HTN, high cholesterol Acute COPD exacerbation +- bronchitis? covid 19 negative iv steroids-same dose, still quite tight completed zithromax course bronchodilator o2 prn-has home o2 already HTN controlled resume asa high cholesterol resume atorvastatin GI/DVT prophylaxis
[2020-03-23] MEDS: ASPIRIN COATED 81 MG TABLET.EC PO SCH (09:48)
[2020-03-23] MEDS: ENOXAPARIN NA (PORCINE) 40 MG/0.4 ML DISP.SYRIN SQ SCH (09:48)
[2020-03-23] MEDS: PANTOPRAZOLE 20 MG TABLET PO SCH (09:48)
[2020-03-23] MEDS: BENZOCAINE/MENTH/CETYLPYRD CL 1 EACH LOZENGE MM PRN ×2 (09:48→13:58)
[2020-03-23] MEDS: guaiFENesin 200 MG/10 ML 10 ML UNIT-DOSE CUPS PO PRN ×3 (09:48→22:30)
[2020-03-23] MEDS: METOPROLOL TARTRATE 50 MG TABLET (FP) PO SCH ×2 (09:48→21:36)
[2020-03-23] MEDS: BUDESONIDE/FORMETEROL FUMARATE 160/4.5 mcg INHALER IH SCH ×2 (09:58→21:36)
--- NOTE | 2020-03-23 10:31 | PN ---
Progress Note, Physician History of Present Illness: PULMONARY ALERT,LESS DYSPNEIC,+ BRONCHOSPASM - Current Medication List Current Medications: Active Medications Albuterol Sulfate (Ventolin 0.083% Nebulizer Soln -) 1 amp NEB Q4H PRN PRN Reason: SHORT OF BREATH/WHEEZING Last Admin: 03/21/20 20:55 Dose: 1 amp Documented by: Albuterol/Ipratropium (Duoneb -) 1 amp NEB RQID [facility] Last Admin: 03/22/20 20:55 Dose: 1 amp Documented by: Aspirin (Ecotrin -) 81 mg PO DAILY [facility] Last Admin: 03/23/20 09:48 Dose: 81 mg Documented by: Atorvastatin Calcium (Lipitor -) 20 mg PO HS [facility] Last Admin: 03/22/20 21:32 Dose: 20 mg Documented by: Benzocaine/Menthol (Cepacol Lozenge -) 1 each MM PRN PRN PRN Reason: SORE THROAT Last Admin: 03/23/20 09:48 Dose: 1 each Documented by: Budesonide/Formoterol Fumarate (Symbicort 160/4.5mcg -) 2 puff IH BID [facility] Last Admin: 03/23/20 09:58 Dose: 2 puff Documented by: Enoxaparin Sodium (Lovenox -) 40 mg SQ DAILY [facility] Last Admin: 03/23/20 09:48 Dose: 40 mg Documented by: Guaifenesin (Robitussin -) 10 ml PO Q6H PRN PRN Reason: COUGH Last Admin: 03/23/20 09:48 Dose: 10 ml Documented by: Methylprednisolone Sodium Succinate (Solu-Medrol -) 40 mg IVPUSH Q8H-IV [facility] Last Admin: 03/23/20 09:48 Dose: 40 mg Documented by: Metoprolol Tartrate (Lopressor -) 50 mg PO BID [facility] Last Admin: 03/23/20 09:48 Dose: 50 mg Documented by: Pantoprazole Sodium (Protonix -) 20 mg PO DAILY [facility] Last Admin: 03/23/20 09:48 Dose: 20 mg Documented by: Zolpidem Tartrate (Ambien -) 10 mg PO HS PRN PRN Reason: INSOMNIA Last Admin: 03/22/20 22:41 Dose: 10 mg Documented by: - Objective Vital Signs: Vital Signs Temperature 98.8 F 03/23/20 06:00 Pulse Rate 72 03/23/20 06:00 Respiratory Rate 20 03/23/20 06:00 Blood Pressure 125/66 03/23/20 06:00 O2 Sat by Pulse Oximetry (%) 99 03/23/20 06:00 Constitutional: Yes: Well Nourished, Calm Eyes: Yes: WNL HENT: Yes: WNL Neck: Yes: WNL Cardiovascular: Yes: Regular Rate and Rhythm, S1, S2 Respiratory: Yes: Wheezes (SCATTERED LETTY WHEEZES) Gastrointestinal: Yes: Normal Bowel Sounds, Soft Extremities: Yes: WNL Edema: No Labs: CBC, BMP Assessment/Plan Assessment/Plan Acute COPD Exacerbation CAD h/o CVA - IV medrol q6 - inhaled bronchodilators standing and PRN - O2 to keep SpO2 >90% - azithromycin - DVT prophylaxis DR HINES
[2020-03-23] MEDS: ACETAMINOPHEN 325 MG TABLET (FP) PO PRN ×3 (11:05→22:30)
--- NOTE | 2020-03-23 12:39 | PN ---
Progress Note (short form) - Note Progress Note: cc: sob s: no chest pain, palps, dizziness, dyspnea Current Medications Generic Name Dose Route Start Last Admin Trade Name Freq PRN Reason Stop Dose Admin Acetaminophen 650 mg 03/23/20 11:00 03/23/20 11:05 Tylenol - PO 650 mg Q6H PRN Administration PAIN 3-7 Albuterol Sulfate 1 amp 03/21/20 08:24 03/21/20 20:55 Ventolin 0.083% Nebulizer Soln - NEB 1 amp Q4H PRN Administration SHORT OF BREATH/WHEEZING Albuterol/Ipratropium 1 amp 03/21/20 16:00 03/23/20 11:28 Duoneb - NEB 1 amp RQID EFFIE Administration Aspirin 81 mg 03/22/20 10:00 03/23/20 09:48 Ecotrin - PO 81 mg DAILY EFFIE Administration Atorvastatin Calcium 20 mg 03/21/20 22:00 03/22/20 21:32 Lipitor - PO 20 mg HS EFFIE Administration Benzocaine/Menthol 1 each 03/23/20 08:13 03/23/20 09:48 Cepacol Lozenge - MM 1 each PRN PRN Administration SORE THROAT Budesonide/Formoterol Fumarate 2 puff 03/21/20 10:00 03/23/20 09:58 Symbicort 160/4.5mcg - IH 2 puff BID EFFIE Administration Enoxaparin Sodium 40 mg 03/21/20 10:00 03/23/20 09:48 Lovenox - SQ 40 mg DAILY EFFIE Administration Guaifenesin 10 ml 03/21/20 08:29 03/23/20 09:48 Robitussin - PO 10 ml Q6H PRN Administration COUGH Methylprednisolone Sodium Succinate 40 mg 03/23/20 15:00 Solu-Medrol - IVPUSH Q6H-IV EFFIE Metoprolol Tartrate 50 mg 03/21/20 10:00 03/23/20 09:48 Lopressor - PO 50 mg BID EFFIE Administration Pantoprazole Sodium 20 mg 03/21/20 10:00 03/23/20 09:48 Protonix - PO 20 mg DAILY EFFIE Administration Zolpidem Tartrate 10 mg 03/21/20 08:25 03/22/20 22:41 Ambien - PO 10 mg HS PRN Administration INSOMNIA Vital Signs Period Temp Pulse Resp BP Sys/Belcher Pulse Ox Last 24 Hr 98.1 F-98.8 F 72-97 20-21 125-135/66-92 95-99 nad no jvd rrr s1s2 no mrg bl exp wheeze, rhonchi, nl eff aao3 no le e/c/c abd nt nd pos bs no jaundice diaphoresis pos dp pt no carotid bruits ecg: sr nl intervals no ischemic changes cxr: no chf echo 03/2020 poor visualization of all images, cannot evaluate LV function, valves not well visualized a/p: 60 f hx cva, [place], copd, htn, hld here with sob. sob, acute copd: -no signs chf, bnp low. no signs acs -likely copd etiology of current sxs -echo uninterpretable - would defer further cardiac workup given improving with treatment for COPD exac, can consider repeat echo as outpatient [place]: -pt reports that approx 2014 had echo, stress test and was told she had evidence of prior [place], no cath done -currently no signs acs -cont home asa, statin, bb, rocky-i cva: -remote, cont home cardiac meds htn: -cont home meds hld: -cont home statin
[2020-03-23] MEDS ORDERED: PT OWN MED DRAWER 7, Y5N ONE (21:31)
[2020-03-23] MEDS: ATORVASTATIN CA 20 MG TABLET (FP) PO SCH (21:36)
[2020-03-23] MEDS: ZOLPIDEM TARTRATE 5 MG TABLET PO PRN (22:31)
[2020-03-24] MEDS: methylPREDNISolone NA SUCC 40 MG/1 ML VIAL IVPUSH SCH ×4 (04:00→21:55)
[2020-03-24] MEDS: guaiFENesin 200 MG/10 ML 10 ML UNIT-DOSE CUPS PO PRN ×4 (04:06→21:55)
[2020-03-24] MEDS: ACETAMINOPHEN 325 MG TABLET (FP) PO PRN ×4 (04:07→21:55)
[2020-03-24] MEDS: ALBUTEROL SO4 2.5/IPRATROPIUM 0.5 INH SOL 3 ML VIAL.NEB. NEB SCH ×4 (08:10→20:15)
--- NOTE | 2020-03-24 08:14 | PN ---
Progress Note (short form) - Note Progress Note: Vital Signs Period Temp Pulse Resp BP Sys/Belcher Pulse Ox Last 24 Hr 98.6 F-98.9 F 73-90 20-22 103-121/57-91 94-99 s1s2 rrr lungs diffuse exp.wheezing-tight after going to bathroom, gets dyspneic easily abd soft no edema aaox3 no focal deficit very anxious, tearful, wants to go home echo very poor quality without gross abnormalities 60 yo lady with PMH of COPD, HTN, high cholesterol Acute COPD exacerbation +- bronchitis? covid 19 negative iv steroids-dose increased yesterday completed zithromax course bronchodilator o2 prn-has home o2 already HTN-h/o cva controlled cont meds and asa high cholesterol cont atorvastatin GI/DVT prophylaxis dc planning hopefully by the weekend
[2020-03-24] MEDS: ENOXAPARIN NA (PORCINE) 40 MG/0.4 ML DISP.SYRIN SQ SCH (09:19)
[2020-03-24] MEDS: METOPROLOL TARTRATE 50 MG TABLET (FP) PO SCH ×2 (09:20→21:55)
[2020-03-24] MEDS: PANTOPRAZOLE 20 MG TABLET PO SCH (09:20)
[2020-03-24] MEDS: ASPIRIN COATED 81 MG TABLET.EC PO SCH (09:20)
[2020-03-24] MEDS: ALPRAZolam 0.25 MG TABLET PO PRN (09:21)
[2020-03-24] MEDS: BENZOCAINE/MENTH/CETYLPYRD CL 1 EACH LOZENGE MM PRN ×3 (09:28→23:09)
--- NOTE | 2020-03-24 11:20 | PN ---
Progress Note (short form) - Note Progress Note: Breathing feels a little better today. Less SOB. No CP. No acute events overnight. Intake & Output 03/21/20 03/22/20 03/23/20 03/24/20 23:59 23:59 23:59 23:59 Intake Total 650 250 790 Balance 650 250 790 Weight 150 lb Last Vital Signs Temp Pulse Resp BP Pulse Ox 98.6 F 78 20 121/91 98 03/24/20 05:00 03/24/20 05:00 03/24/20 05:00 03/24/20 05:00 03/24/20 05:00 Active Medications Acetaminophen (Tylenol -) 650 mg PO Q6H PRN PRN Reason: PAIN 3-7 Last Admin: 03/24/20 09:20 Dose: 650 mg Documented by: Albuterol Sulfate (Ventolin 0.083% Nebulizer Soln -) 1 amp NEB Q4H PRN PRN Reason: SHORT OF BREATH/WHEEZING Last Admin: 03/21/20 20:55 Dose: 1 amp Documented by: Albuterol/Ipratropium (Duoneb -) 1 amp NEB RQID [facility] Last Admin: 03/24/20 08:10 Dose: 1 amp Documented by: Alprazolam (Xanax -) 0.25 mg PO Q8H PRN PRN Reason: ANXIETY Last Admin: 03/24/20 09:21 Dose: 0.25 mg Documented by: Aspirin (Ecotrin -) 81 mg PO DAILY [facility] Last Admin: 03/24/20 09:20 Dose: 81 mg Documented by: Atorvastatin Calcium (Lipitor -) 20 mg PO HS [facility] Last Admin: 03/23/20 21:36 Dose: 20 mg Documented by: Benzocaine/Menthol (Cepacol Lozenge -) 1 each MM PRN PRN PRN Reason: SORE THROAT Last Admin: 03/24/20 09:28 Dose: 1 each Documented by: Budesonide/Formoterol Fumarate (Symbicort 160/4.5mcg -) 2 puff IH BID [facility] Last Admin: 03/23/20 21:36 Dose: 2 puff Documented by: Enoxaparin Sodium (Lovenox -) 40 mg SQ DAILY [facility] Last Admin: 03/24/20 09:19 Dose: 40 mg Documented by: Guaifenesin (Robitussin -) 10 ml PO Q6H PRN PRN Reason: COUGH Last Admin: 03/24/20 09:20 Dose: 10 ml Documented by: Methylprednisolone Sodium Succinate (Solu-Medrol -) 40 mg IVPUSH Q6H-IV [facility] Last Admin: 03/24/20 09:20 Dose: 40 mg Documented by: Metoprolol Tartrate (Lopressor -) 50 mg PO BID [facility] Last Admin: 03/24/20 09:20 Dose: 50 mg Documented by: Pantoprazole Sodium (Protonix -) 20 mg PO DAILY [facility] Last Admin: 03/24/20 09:20 Dose: 20 mg Documented by: Zolpidem Tartrate (Ambien -) 10 mg PO HS PRN PRN Reason: INSOMNIA Last Admin: 03/23/20 22:31 Dose: 10 mg Documented by: Constitutional: Yes: NAD Eyes: Yes: Conjunctiva Clear, EOM Intact HENT: Yes: Atraumatic, Normocephalic Neck: Yes: Supple, Trachea Midline Cardiovascular: Yes: Regular Rate and Rhythm Respiratory: Yes: Poor Air Entry, Less bilateral expiratory Wheezes ...Clubbing: No Gastrointestinal: Yes: Normal Bowel Sounds, Soft. No: Tenderness Edema: No Neurological: Yes: Alert, Oriented Labs: Imaging - Results Chest X-ray: Report Reviewed, Image Reviewed (no infiltrates) Assessment/Plan Acute COPD Exacerbation CAD h/o CVA - IV medrol - inhaled bronchodilators standing and PRN - O2 to keep SpO2 >90% - azithromycin - DVT prophylaxis - No smoking Dr Moura
[2020-03-24] MEDS: BUDESONIDE/FORMETEROL FUMARATE 160/4.5 mcg INHALER IH SCH ×2 (11:21→21:55)
--- NOTE | 2020-03-24 11:45 | PN ---
Progress Note (short form) - Note Progress Note: cc: sob s: no chest pain, palps, dizziness; mild sob improving Current Medications Generic Name Dose Route Start Last Admin Trade Name Freq PRN Reason Stop Dose Admin Acetaminophen 650 mg 03/23/20 11:00 03/24/20 09:20 Tylenol - PO 650 mg Q6H PRN Administration PAIN 3-7 Albuterol Sulfate 1 amp 03/21/20 08:24 03/21/20 20:55 Ventolin 0.083% Nebulizer Soln - NEB 1 amp Q4H PRN Administration SHORT OF BREATH/WHEEZING Albuterol/Ipratropium 1 amp 03/21/20 16:00 03/24/20 11:01 Duoneb - NEB 1 amp RQID EFFIE Administration Alprazolam 0.25 mg 03/24/20 08:15 03/24/20 09:21 Xanax - PO 0.25 mg Q8H PRN Administration ANXIETY Aspirin 81 mg 03/22/20 10:00 03/24/20 09:20 Ecotrin - PO 81 mg DAILY EFFIE Administration Atorvastatin Calcium 20 mg 03/21/20 22:00 03/23/20 21:36 Lipitor - PO 20 mg HS EFFIE Administration Benzocaine/Menthol 1 each 03/23/20 08:13 03/24/20 09:28 Cepacol Lozenge - MM 1 each PRN PRN Administration SORE THROAT Budesonide/Formoterol Fumarate 2 puff 03/21/20 10:00 03/24/20 11:21 Symbicort 160/4.5mcg - IH 2 puff BID EFFIE Administration Enoxaparin Sodium 40 mg 03/21/20 10:00 03/24/20 09:19 Lovenox - SQ 40 mg DAILY EFFIE Administration Guaifenesin 10 ml 03/21/20 08:29 03/24/20 09:20 Robitussin - PO 10 ml Q6H PRN Administration COUGH Methylprednisolone Sodium Succinate 40 mg 03/23/20 15:00 03/24/20 09:20 Solu-Medrol - IVPUSH 40 mg Q6H-IV EFFIE Administration Metoprolol Tartrate 50 mg 03/21/20 10:00 03/24/20 09:20 Lopressor - PO 50 mg BID EFFIE Administration Pantoprazole Sodium 20 mg 03/21/20 10:00 03/24/20 09:20 Protonix - PO 20 mg DAILY EFFIE Administration Zolpidem Tartrate 10 mg 03/21/20 08:25 03/23/20 22:31 Ambien - PO 10 mg HS PRN Administration INSOMNIA Vital Signs Period Temp Pulse Resp BP Sys/Belcher Pulse Ox Last 24 Hr 98.6 F-98.9 F 73-90 20-22 103-121/57-91 94-98 nad no jvd rrr s1s2 no mrg bl exp wheeze, rhonchi, nl eff aao3 no le e/c/c abd nt nd pos bs no jaundice diaphoresis pos dp pt no carotid bruits CBC, BMP 03/21/20 07:20 03/21/20 07:20 ecg: sr nl intervals no ischemic changes cxr: no chf echo 03/2020 poor visualization of all images, cannot evaluate LV function, valves not well visualized a/p: 60 f hx cva, [place], copd, h[place], hld here with sob. sob, acute copd: -no signs chf, bnp low. no signs acs -likely copd etiology of current sxs -echo uninterpretable -would defer further cardiac workup given improving with treatment for COPD exa c, can consider repeat echo as outpatient [place]: -pt reports that approx 2014 had echo, stress test and was told she had evidence of prior [place], no cath done -currently no signs acs -cont home asa, statin, bb, rocky-i cva: -remote, cont home cardiac meds htn: -cont home meds hld: -cont home statin
[2020-03-24] MEDS ORDERED: PT OWN MED DRAWER 7, Y5N ONE (21:45)
[2020-03-24] MEDS: ATORVASTATIN CA 20 MG TABLET (FP) PO SCH (21:55)
[2020-03-24] MEDS: ZOLPIDEM TARTRATE 5 MG TABLET PO PRN (22:56)
[2020-03-25] MEDS: ALBUTEROL SO4 0.083% IH SOL 2.5 MG/3 ML VIAL.NEB. NEB PRN (00:04)
[2020-03-25] MEDS: methylPREDNISolone NA SUCC 40 MG/1 ML VIAL IVPUSH SCH ×3 (04:00→17:58)
[2020-03-25] MEDS: ALBUTEROL SO4 2.5/IPRATROPIUM 0.5 INH SOL 3 ML VIAL.NEB. NEB SCH ×4 (07:30→20:24)
--- NOTE | 2020-03-25 08:40 | PN ---
Progress Note (short form) - Note Progress Note: Vital Signs Period Temp Pulse Resp BP Sys/Belcher Pulse Ox Last 24 Hr 98.4 F-98.6 F 72-86 20-20 119-148/75-77 94-98 s1s2 rrr lungs diffuse exp.wheezing-tight after going to bathroom, gets dyspneic easily abd soft no edema aaox3 no focal deficit very anxious, tearful, wants to go home echo very poor quality without gross abnormalities 60 yo lady with PMH of COPD, HTN, high cholesterol Acute COPD exacerbation +- bronchitis? covid 19 negative iv steroids-still quite tight completed zithromax course bronchodilator o2 prn-has home o2 already HTN-h/o cva controlled cont meds and asa high cholesterol cont atorvastatin GI/DVT prophylaxis dc planning hopefully by the weekend taper steroids as tolerated patient is quite anxious to go home
[2020-03-25] MEDS ORDERED: guaiFENesin/CODEINE 10 ML UNIT-DOSE CUPS PO PRN (08:41)
[2020-03-25] MEDS: ENOXAPARIN NA (PORCINE) 40 MG/0.4 ML DISP.SYRIN SQ SCH (09:23)
[2020-03-25] MEDS: METOPROLOL TARTRATE 50 MG TABLET (FP) PO SCH ×2 (09:23→22:06)
[2020-03-25] MEDS: ASPIRIN COATED 81 MG TABLET.EC PO SCH (09:23)
[2020-03-25] MEDS: PANTOPRAZOLE 20 MG TABLET PO SCH (09:23)
[2020-03-25] MEDS: BUDESONIDE/FORMETEROL FUMARATE 160/4.5 mcg INHALER IH SCH ×2 (09:27→22:06)
[2020-03-25] MEDS: ACETAMINOPHEN 325 MG TABLET (FP) PO PRN (11:23)
--- NOTE | 2020-03-25 14:37 | PN ---
Progress Note (short form) - Note Progress Note: PULMONARY Breathing feels a little better today. Less SOB. No CP. No acute events overnight. VSS/AFEBRILE Constitutional: Yes: NAD Eyes: Yes: Conjunctiva Clear, EOM Intact HENT: Yes: Atraumatic, Normocephalic Neck: Yes: Supple, Trachea Midline Cardiovascular: Yes: Regular Rate and Rhythm Respiratory: Yes: Poor Air Entry, Less bilateral expiratory Wheezes ...Clubbing: No Gastrointestinal: Yes: Normal Bowel Sounds, Soft. No: Tenderness Edema: No Neurological: Yes: Alert, Oriented Labs: NOTED Chest X-ray: Report Reviewed, Image Reviewed (no infiltrates) Assessment/Plan Acute COPD Exacerbation CAD h/o CVA - IV medrol to taper - inhaled bronchodilators standing and PRN - O2 to keep SpO2 >90% - azithromycin - DVT prophylaxis - No smoking Ruma SAMUEL MD
--- NOTE | 2020-03-25 14:55 | PN ---
Progress Note, Physician Chief Complaint: no CP/SOB above baseline, dizziness - Current Medication List Current Medications: Active Medications Acetaminophen (Tylenol -) 650 mg PO Q6H PRN PRN Reason: PAIN 3-7 Last Admin: 03/25/20 11:23 Dose: 650 mg Documented by: Albuterol Sulfate (Ventolin 0.083% Nebulizer Soln -) 1 amp NEB Q4H PRN PRN Reason: SHORT OF BREATH/WHEEZING Last Admin: 03/25/20 00:04 Dose: 1 amp Documented by: Albuterol/Ipratropium (Duoneb -) 1 amp NEB RQID [facility] Last Admin: 03/25/20 11:19 Dose: 1 amp Documented by: Alprazolam (Xanax -) 0.25 mg PO Q8H PRN PRN Reason: ANXIETY Last Admin: 03/24/20 09:21 Dose: 0.25 mg Documented by: Aspirin (Ecotrin -) 81 mg PO DAILY [facility] Last Admin: 03/25/20 09:23 Dose: 81 mg Documented by: Atorvastatin Calcium (Lipitor -) 20 mg PO HS [facility] Last Admin: 03/24/20 21:55 Dose: 20 mg Documented by: Benzocaine/Menthol (Cepacol Lozenge -) 1 each MM PRN PRN PRN Reason: SORE THROAT Last Admin: 03/24/20 23:09 Dose: 1 each Documented by: Budesonide/Formoterol Fumarate (Symbicort 160/4.5mcg -) 2 puff IH BID [facility] Last Admin: 03/25/20 09:27 Dose: 2 puff Documented by: Enoxaparin Sodium (Lovenox -) 40 mg SQ DAILY [facility] Last Admin: 03/25/20 09:23 Dose: 40 mg Documented by: Guaifenesin/Codeine Phosphate (Robitussin Ac -) 10 ml PO Q8H PRN PRN Reason: COUGH Last Admin: 03/25/20 11:22 Dose: 10 ml Documented by: Methylprednisolone Sodium Succinate (Solu-Medrol -) 40 mg IVPUSH Q8H-IV [facility] Metoprolol Tartrate (Lopressor -) 50 mg PO BID [facility] Last Admin: 03/25/20 09:23 Dose: 50 mg Documented by: Pantoprazole Sodium (Protonix -) 20 mg PO DAILY [facility] Last Admin: 03/25/20 09:23 Dose: 20 mg Documented by: - Objective Vital Signs: Vital Signs Temperature 98.3 F 03/25/20 14:26 Pulse Rate 87 03/25/20 14:26 Respiratory Rate 20 03/25/20 14:26 Blood Pressure 140/89 03/25/20 14:26 O2 Sat by Pulse Oximetry (%) 90 L 03/25/20 14:26 Constitutional: Yes: No Distress, Calm Eyes: Yes: Conjunctiva Clear Cardiovascular: Yes: Regular Rate and Rhythm Respiratory: Yes: Other (decreased breath sounds, no active wheezing) Gastrointestinal: Yes: Soft (Nontender) Edema: No Peripheral Pulses WNL: Yes Neurological: Yes: Alert, Oriented ...Motor Strength: WNL Psychiatric: Yes: WNL Labs: CBC, BMP 03/21/20 07:20 03/21/20 07:20 Assessment/Plan ecg: sr nl intervals no ischemic changes cxr: no chf echo 03/2020 poor visualization of all images, cannot evaluate LV function, valves not well visualized a/p: 60 f hx cva, PR, copd, htn, hld here with sob. sob, acute copd: -no signs chf, bnp low. no signs acs -likely copd etiology of current sxs -echo uninterpretable -would defer further cardiac workup given improving with treatment for COPD exac, can consider repeat echo as outpatient PR: -pt reports that approx 2014 had echo, stress test and was told she had evidence of prior PR, no cath done -currently no signs acs -cont home asa, statin, bb, rocky-i cva: -remote, cont home cardiac meds htn: -cont home meds hld: -cont home statin
[2020-03-25] MEDS: BENZOCAINE/MENTH/CETYLPYRD CL 1 EACH LOZENGE MM PRN (18:07)
[2020-03-25] MEDS: ATORVASTATIN CA 20 MG TABLET (FP) PO SCH (22:06)
[2020-03-25] MEDS: ALPRAZolam 0.25 MG TABLET PO PRN (23:32)
[2020-03-26] MEDS: methylPREDNISolone NA SUCC 40 MG/1 ML VIAL IVPUSH SCH ×2 (01:53→09:42)
[2020-03-26 06:59] LABS: BASO % 0.1 % (0-2.0); HEMATOCRIT 39.9 % (32.4-45.2); HEMOGLOBIN 13.6 GM/dL (10.7-15.3); LYMPH % 3.9 % (8-40); MCH 31.3 pg (25.7-33.7); MCHC 34.2 g/dl (32.0-36.0); MEAN CELL VOLUME 91.6 fl (80-96); MEAN PLT VOLUME 9.1 fl (7.5-11.1); MONO % 3.3 % (3.8-10.2); NEUT % 92.7 % (42.8-82.8); PLATELET COUNT 253 K/MM3 (134-434); RBC 4.35 M/mm3 (3.60-5.2); RDW 13.9 % (11.6-15.6); WHITE BLOOD COUNT 15.9 K/mm3 (4.0-10.0)
[2020-03-26 07:18] LABS: POTASSIUM 4.2 mmol/L (3.5-5.1)
[2020-03-26 07:24] LABS: CALCIUM 8.4 mg/dL (8.5-10.1)
[2020-03-26 07:25] LABS: ALBUMIN 3.1 g/dl (3.4-5.0); BLOOD UREA NITROGEN 34.3 mg/dL (7-18)
[2020-03-26 07:28] LABS: CREATININE 0.9 mg/dL (0.55-1.3)
[2020-03-26 07:29] LABS: BILIRUBIN,TOTAL 0.8 mg/dL (0.2-1)
[2020-03-26 07:30] LABS: TOT PROT 5.9 g/dl (6.4-8.2)
[2020-03-26] MEDS: ALBUTEROL SO4 2.5/IPRATROPIUM 0.5 INH SOL 3 ML VIAL.NEB. NEB SCH ×2 (07:35→11:33)
--- NOTE | 2020-03-26 09:17 | PN ---
Progress Note (short form) - Note Progress Note: CBC, BMP 03/26/20 06:33 03/26/20 06:33 Vital Signs Period Temp Pulse Resp BP Sys/Belcher Pulse Ox Last 24 Hr 98.3 F-98.8 F 67-95 20-20 140-155/82-93 90-95 s1s2 rrr lungs better air entry abd soft no edema aaox3 no focal deficit feeling better, ambulating more echo very poor quality without gross abnormalities 60 yo lady with PMH of COPD, HTN, high cholesterol Acute COPD exacerbation +- bronchitis? covid 19 negative iv steroids-still quite tight completed zithromax course bronchodilator o2 prn-has home o2 already HTN-h/o cva controlled cont meds and asa high cholesterol cont atorvastatin GI/DVT prophylaxis dc home tomorrow am
[2020-03-26] MEDS: ENOXAPARIN NA (PORCINE) 40 MG/0.4 ML DISP.SYRIN SQ SCH (09:42)
[2020-03-26] MEDS: PANTOPRAZOLE 20 MG TABLET PO SCH (09:42)
[2020-03-26] MEDS: METOPROLOL TARTRATE 50 MG TABLET (FP) PO SCH ×2 (09:42→21:37)
[2020-03-26] MEDS: BUDESONIDE/FORMETEROL FUMARATE 160/4.5 mcg INHALER IH SCH ×2 (09:42→21:38)
[2020-03-26] MEDS: ASPIRIN COATED 81 MG TABLET.EC PO SCH (09:42)
--- NOTE | 2020-03-26 12:59 | PN ---
Progress Note (short form) - Note Progress Note: PULMONARY Breathing better today. Less SOB. No CP. No acute events overnight. VSS/AFEBRILE Constitutional: Yes: NAD Eyes: Yes: Conjunctiva Clear, EOM Intact HENT: Yes: Atraumatic, Normocephalic Neck: Yes: Supple, Trachea Midline Cardiovascular: Yes: Regular Rate and Rhythm Respiratory: Yes: Poor Air Entry, Less bilateral expiratory Wheezes ...Clubbing: No Gastrointestinal: Yes: Normal Bowel Sounds, Soft. No: Tenderness Edema: No Neurological: Yes: Alert, Oriented Labs: NOTED Chest X-ray: Report Reviewed, Image Reviewed (no infiltrates) Assessment/Plan Acute COPD Exacerbation CAD h/o CVA - IV medrol to prednisone - inhaled bronchodilators standing and PRN - O2 to keep SpO2 >90% - azithromycin - DVT prophylaxis - No smoking - no objection to d/c planning Ruma SAMUEL MD
[2020-03-26] MEDS ORDERED: PT OWN MED DRAWER 7, Y5N ONE ×2 (15:51→17:35)
[2020-03-26] MEDS: BENZOCAINE/MENTH/CETYLPYRD CL 1 EACH LOZENGE MM PRN (17:31)
[2020-03-26] MEDS: ALPRAZolam 0.25 MG TABLET PO PRN (21:37)
[2020-03-26] MEDS: ATORVASTATIN CA 20 MG TABLET (FP) PO SCH (21:37)
[2020-03-27 06:51] VITALS: TEMP 98.9
[2020-03-27] MEDS: ENOXAPARIN NA (PORCINE) 40 MG/0.4 ML DISP.SYRIN SQ SCH (09:19)
[2020-03-27] MEDS: PANTOPRAZOLE 20 MG TABLET PO SCH (09:19)
[2020-03-27] MEDS: METOPROLOL TARTRATE 50 MG TABLET (FP) PO SCH (09:19)
[2020-03-27] MEDS: ASPIRIN COATED 81 MG TABLET.EC PO SCH (09:19)
[2020-03-27] MEDS: BUDESONIDE/FORMETEROL FUMARATE 160/4.5 mcg INHALER IH SCH (09:20)
--- NOTE | 2020-03-27 09:36 | DS ---
Physical Examination Vital Signs: Vital Signs Temperature 98.9 F 03/27/20 06:00 Pulse Rate 57 L 03/27/20 06:00 Respiratory Rate 20 03/27/20 06:00 Blood Pressure 122/63 03/27/20 06:00 O2 Sat by Pulse Oximetry (%) 98 03/27/20 06:00 Constitutional: Yes: Calm Eyes: Yes: EOM Intact HENT: Yes: Normocephalic Neck: Yes: Trachea Midline Cardiovascular: Yes: Regular Rate and Rhythm Respiratory: Yes: CTA Bilaterally Gastrointestinal: Yes: Normal Bowel Sounds, Soft, Abdomen, Obese Extremities: Yes: WNL Edema: No Labs: CBC, BMP 03/26/20 06:33 03/26/20 06:33 Discharge Summary Problems reviewed: Yes Reason For Visit: ASTHMA/OBSTRUCTIVE CHRONIC BRONCITIS W/EXCERBATION Current Active Problems COPD (chronic obstructive pulmonary disease) (Acute) COPD exacerbation (Acute) Hospital Course: 60 yo lady admitted for acute copd exacerbation, possible bronchitis, covid19 negative. Much better with steroid and bronchodilators, does have home o2 medically stable to dc home on po prednisone taper. Condition: Fair - Instructions Referrals: Carol Day MD [Primary Care Provider] - Disposition: HOME - Home Medications Comprehensive Discharge Medication List: Ambulatory Orders Aspirin 325 mg PO Q48H 11/22/12 Albuterol 0.083% Nebulizer Janina [Ventolin 0.083% Nebulizer Soln -] 1 neb NEB Q6H #30 vial 01/10/16 Albuterol Sulfate Inhaler - [Ventolin HFA Inhaler -] 2 inh IH Q6H #1 inh 01/10/16 Metoprolol Tartrate [Lopressor -] 50 mg PO BID 04/19/17 Atorvastatin Ca [Lipitor] 20 mg PO HS 03/20/20 Lisinopril [Prinivil] 20 mg PO DAILY 03/20/20 Omeprazole 20 mg PO DAILY 03/20/20 Umeclidinium [place] [Incruse Ellipta] 62.5 mcg IH BID 03/20/20 Zolpidem Tartrate [Ambien] 10 mg PO HS 03/20/20
[2020-03-27] MEDS ORDERED: predniSONE 20 MG TABLET (UD) PO SCH (10:00)
[2020-03-27 10:15] VITALS: BP 123/51; PULSE 67
== END 2020-03-27 11:32 | disposition home or self-care (01) | DRG 192 ==
LOC: JER 17:00 → JERBED 20:43 → JICU 03-21 03:09 → J7W 03-21 21:57
PROVIDERS: ADMIT Internal Medicine; ATTEND Internal Medicine
DX: J44.1 Chronic obstructive pulmonary disease with (acute) exacerbation (principal); R42 Dizziness and giddiness; R73.03 Prediabetes; I10 Essential (primary) hypertension; E78.5 Hyperlipidemia, unspecified; R06.02 Shortness of breath; R05 Cough; I25.10 Atherosclerotic heart disease of native coronary artery without angina pectoris; Z87.891 Personal history of nicotine dependence
CPT/HCPCS: 36415; 71045-TC-FY; 80053; 82728; 83036; 83615; 83735; 83880; 84484; 85025; 85379; 86140; 93005; 93010; 93306-TC; 94640; 99285-25; C9803; U0003

== ENCOUNTER 2021-03-06 11:37 | Inpatient (IN) | payer OTHER ==
[2021-03-06] MEDS ORDERED: ASPIRIN 81 MG CHEWABLE TABLETS PO ONE (12:16)
[2021-03-06] MEDS ORDERED: ACETAMINOPHEN 1000 MG/100 ML VIAL (NON FORMULARY) IVPB ONE (12:49)
[2021-03-06] MEDS ORDERED: ALBUTEROL SO4 2.5/IPRATROPIUM 0.5 INH SOL 3 ML VIAL.NEB. NEB ONE ×2 (12:49→12:55)
[2021-03-06] MEDS ORDERED: ACETAMINOPHEN INJECTION 100 ML IVPB ONE (12:55)
[2021-03-06] MEDS ORDERED: ASPIRIN 81 MG CHEWABLE TABLETS ONE (12:55)
[2021-03-06] MEDS ORDERED: AZITHROMYCIN IVPB 500 MG in DEXTROSE 5%-WATER - 250 ML IVPB ONE (13:39)
[2021-03-06] MEDS ORDERED: CEFTRIAXONE 1,000 MG in DEXTROSE 5%-WATER - 50 ML IVPB ONE (13:40)
[2021-03-06] MEDS ORDERED: CEFTRIAXONE 1 GM/50 ML BAG ONE (14:00)
[2021-03-06] MEDS ORDERED: AZITHROMYCIN IVPB 500 MG/250 ML BAG IVPB ONE (14:00)
[2021-03-06 14:07] LABS: HEMATOCRIT 41.3 % (32.4-45.2); HEMOGLOBIN 13.6 GM/dL (10.7-15.3); MCH 29.9 pg (25.7-33.7); MCHC 32.9 g/dl (32.0-36.0); MEAN CELL VOLUME 90.8 fl (80-96); MEAN PLT VOLUME 9.2 fl (7.5-11.1); PLATELET COUNT 255 10^3/uL (134-434); RBC 4.55 M/mm3 (3.60-5.2); RDW 14.5 % (11.6-15.6); WHITE BLOOD COUNT 20.3 K/mm3 (4.0-10.0)
[2021-03-06 14:13] LABS: INR 1.24 (0.83-1.09)
[2021-03-06 14:15] LABS: ACTIVATED PTT 30.3 SECONDS (25.2-36.5)
[2021-03-06 14:26] LABS: CHLORIDE 107 mmol/L (98-107); SODIUM 138 mmol/L (136-145)
[2021-03-06 14:28] LABS: ALBUMIN 3.1 g/dl (3.4-5.0); CALCIUM 8.5 mg/dL (8.5-10.1)
[2021-03-06 14:29] LABS: ANION GAP 7 MMOL/L (8-16); BLOOD UREA NITROGEN 20.5 mg/dL (7-18); CO2 23 mmol/L (21-32); GLUCOSE,RANDOM 97 mg/dL (74-106); MAGNESIUM 2.1 mg/dL (1.8-2.4)
[2021-03-06 14:31] LABS: SGPT/ALT 11 U/L (13-61)
[2021-03-06 14:32] LABS: ANISOCYTOSIS 0; CREATININE 0.8 mg/dL (0.55-1.3); HELMET CELLS 0; HOWELL-JOLLY BODIES 0; MACROCYTOSIS 0; OVALOCYTE 0; PLATELET ESTIMATE NORMAL; ROULEAU 0; SGOT/AST 14 U/L (15-37); SICKELED CELLS 0; TARGET CELLS 0; TEAR DROP CELLS 0; TOXIC GRANULATION 0
[2021-03-06 14:33] LABS: BILIRUBIN,TOTAL 1.4 mg/dL (0.2-1); TOT PROT 6.8 g/dl (6.4-8.2)
[2021-03-06 14:34] LABS: ALK PHOS 122 U/L (45-117)
[2021-03-06 14:37] LABS: N-TERMINAL BNP 192.6 pg/ml (5-125)
[2021-03-06 22:29] VITALS: BMI 25.9
[2021-03-06] MEDS ORDERED: ZOLPIDEM TARTRATE 5 MG TABLET PO ONE (23:41)
[2021-03-07] MEDS ORDERED: ACETAMINOPHEN 325 MG TABLET (FP) PO PRN (07:56)
[2021-03-07] MEDS: ALBUTEROL SO4 0.083% IH SOL 2.5 MG/3 ML VIAL.NEB. NEB SCH ×4 (08:30→20:54)
[2021-03-07] MEDS ORDERED: cefTRIAXone SODIUM 1 GM VIAL ONE (09:21)
[2021-03-07] MEDS ORDERED: DEXTROSE 5%-WATER - 50 ML IVPB ONE (09:21)
[2021-03-07] MEDS: methylPREDNISolone NA SUCC 40 MG/1 ML VIAL IVPUSH SCH ×3 (09:25→21:56)
[2021-03-07] MEDS: PANTOPRAZOLE 20 MG TABLET PO SCH (09:32)
[2021-03-07] MEDS: CEFTRIAXONE 1 GM in DEXTROSE 5%-WATER - 50 ML IVPB SCH (09:32)
[2021-03-07] MEDS: ASPIRIN COATED 81 MG TABLET.EC PO SCH (09:32)
[2021-03-07] MEDS: ENOXAPARIN NA (PORCINE) 40 MG/0.4 ML DISP.SYRIN SQ SCH (09:32)
[2021-03-07] MEDS: LISINOPRIL 20 MG TABLET PO SCH (09:32)
[2021-03-07] MEDS: AZITHROMYCIN 250 MG TABLET PO SCH (10:35)
[2021-03-07] MEDS ORDERED: PT OWN MED DRAWER 7, Y5N ONE (12:26)
[2021-03-07] MEDS: TIOTROPIUM BROMIDE 2.5 MCG (SPIRIVA) RESPIMAT INHALER IH SCH (12:33)
[2021-03-07] MEDS: ATORVASTATIN CA 20 MG TABLET (FP) PO SCH (21:56)
[2021-03-07] MEDS: BUDESONIDE/FORMETEROL FUMARATE 160/4.5 mcg INHALER IH SCH (21:56)
[2021-03-07] MEDS: ZOLPIDEM TARTRATE 5 MG TABLET PO PRN (22:56)
[2021-03-08] MEDS: guaiFENesin/D-METHORPHAN HB 10 ML UNIT-DOSE CUPS PO PRN ×2 (00:40→23:15)
[2021-03-08] MEDS: methylPREDNISolone NA SUCC 40 MG/1 ML VIAL IVPUSH SCH ×4 (04:16→22:55)
[2021-03-08 07:26] LABS: HEMATOCRIT 37.5 % (32.4-45.2); HEMOGLOBIN 12.7 GM/dL (10.7-15.3); MCH 30.6 pg (25.7-33.7); MEAN CELL VOLUME 90.1 fl (80-96); MEAN PLT VOLUME 8.6 fl (7.5-11.1); PLATELET COUNT 276 10^3/uL (134-434); RBC 4.16 M/mm3 (3.60-5.2); WHITE BLOOD COUNT 13.7 K/mm3 (4.0-10.0)
[2021-03-08 07:52] LABS: CALCIUM 9.2 mg/dL (8.5-10.1)
[2021-03-08 07:53] LABS: ALBUMIN 2.6 g/dl (3.4-5.0); BLOOD UREA NITROGEN 20.7 mg/dL (7-18)
[2021-03-08 07:56] LABS: CREATININE 0.8 mg/dL (0.55-1.3)
[2021-03-08 07:57] LABS: BILIRUBIN,TOTAL 0.3 mg/dL (0.2-1); TOT PROT 6.4 g/dl (6.4-8.2)
[2021-03-08] MEDS: ALBUTEROL SO4 0.083% IH SOL 2.5 MG/3 ML VIAL.NEB. NEB SCH ×4 (08:03→20:40)
[2021-03-08] MEDS ORDERED: DEXTROSE 5%-WATER - 50 ML IVPB ONE (09:32)
[2021-03-08] MEDS ORDERED: cefTRIAXone SODIUM 1 GM VIAL ONE (09:32)
[2021-03-08] MEDS: ENOXAPARIN NA (PORCINE) 40 MG/0.4 ML DISP.SYRIN SQ SCH (10:05)
[2021-03-08] MEDS: CEFTRIAXONE 1 GM in DEXTROSE 5%-WATER - 50 ML IVPB SCH (10:05)
[2021-03-08] MEDS: LISINOPRIL 20 MG TABLET PO SCH (10:06)
[2021-03-08] MEDS: PANTOPRAZOLE 20 MG TABLET PO SCH (10:06)
[2021-03-08] MEDS: AZITHROMYCIN 250 MG TABLET PO SCH (10:06)
[2021-03-08] MEDS: ASPIRIN COATED 81 MG TABLET.EC PO SCH (10:07)
[2021-03-08] MEDS: BUDESONIDE/FORMETEROL FUMARATE 160/4.5 mcg INHALER IH SCH ×2 (10:08→22:57)
[2021-03-08] MEDS: TIOTROPIUM BROMIDE 2.5 MCG (SPIRIVA) RESPIMAT INHALER IH SCH (10:08)
[2021-03-08] MEDS: ATORVASTATIN CA 20 MG TABLET (FP) PO SCH (22:57)
[2021-03-08] MEDS: ZOLPIDEM TARTRATE 5 MG TABLET PO PRN (23:15)
[2021-03-09] MEDS: methylPREDNISolone NA SUCC 40 MG/1 ML VIAL IVPUSH SCH ×3 (02:32→21:27)
[2021-03-09] MEDS: BENZOCAINE/MENTHOL 1 EACH LOZENGE MM PRN ×2 (02:48→10:00)
[2021-03-09] MEDS ORDERED: PT OWN MED DRAWER 7, Y5N ONE ×2 (02:51→09:28)
[2021-03-09] MEDS: ALBUTEROL SO4 0.083% IH SOL 2.5 MG/3 ML VIAL.NEB. NEB SCH ×4 (09:00→20:40)
[2021-03-09] MEDS ORDERED: cefTRIAXone SODIUM 1 GM VIAL ONE (09:28)
[2021-03-09] MEDS ORDERED: DEXTROSE 5%-WATER - 50 ML IVPB ONE (09:28)
[2021-03-09] MEDS: ASPIRIN COATED 81 MG TABLET.EC PO SCH (09:59)
[2021-03-09] MEDS: ENOXAPARIN NA (PORCINE) 40 MG/0.4 ML DISP.SYRIN SQ SCH (09:59)
[2021-03-09] MEDS: PANTOPRAZOLE 20 MG TABLET PO SCH (09:59)
[2021-03-09] MEDS: CEFTRIAXONE 1 GM in DEXTROSE 5%-WATER - 50 ML IVPB SCH (09:59)
[2021-03-09] MEDS: LISINOPRIL 20 MG TABLET PO SCH (09:59)
[2021-03-09] MEDS: TIOTROPIUM BROMIDE 2.5 MCG (SPIRIVA) RESPIMAT INHALER IH SCH (10:00)
[2021-03-09] MEDS: BUDESONIDE/FORMETEROL FUMARATE 160/4.5 mcg INHALER IH SCH ×2 (10:00→21:26)
[2021-03-09] MEDS: AZITHROMYCIN 250 MG TABLET PO SCH (10:01)
[2021-03-09] MEDS: ATORVASTATIN CA 20 MG TABLET (FP) PO SCH (21:27)
[2021-03-09] MEDS: ZOLPIDEM TARTRATE 5 MG TABLET PO PRN (23:03)
[2021-03-10] MEDS: ALBUTEROL SO4 0.083% IH SOL 2.5 MG/3 ML VIAL.NEB. NEB SCH ×2 (07:40→11:14)
[2021-03-10] MEDS ORDERED: DEXTROSE 5%-WATER - 50 ML IVPB ONE (09:39)
[2021-03-10] MEDS ORDERED: cefTRIAXone SODIUM 1 GM VIAL ONE (09:39)
[2021-03-10] MEDS: LISINOPRIL 20 MG TABLET PO SCH (09:42)
[2021-03-10] MEDS: ASPIRIN COATED 81 MG TABLET.EC PO SCH (09:42)
[2021-03-10] MEDS: CEFTRIAXONE 1 GM in DEXTROSE 5%-WATER - 50 ML IVPB SCH (09:42)
[2021-03-10] MEDS: PANTOPRAZOLE 20 MG TABLET PO SCH (09:42)
[2021-03-10] MEDS: ENOXAPARIN NA (PORCINE) 40 MG/0.4 ML DISP.SYRIN SQ SCH (09:42)
[2021-03-10] MEDS: TIOTROPIUM BROMIDE 2.5 MCG (SPIRIVA) RESPIMAT INHALER IH SCH (09:50)
[2021-03-10] MEDS: BUDESONIDE/FORMETEROL FUMARATE 160/4.5 mcg INHALER IH SCH (09:50)
[2021-03-10] MEDS: methylPREDNISolone NA SUCC 40 MG/1 ML VIAL IVPUSH SCH (09:55)
[2021-03-10 14:42] VITALS: BP 156/88; PULSE 110; TEMP 98.8
== END 2021-03-10 13:00 | disposition home or self-care (01) | DRG 190 ==
LOC: JER 11:37 → JERBED 14:55 → J7W 22:06
PROVIDERS: ADMIT Internal Medicine; ATTEND Internal Medicine
DX: J44.0 Chronic obstructive pulmonary disease with (acute) lower respiratory infection (principal); J96.01 Acute respiratory failure with hypoxia; J18.9 Pneumonia, unspecified organism; B37.0 Candidal stomatitis; J44.1 Chronic obstructive pulmonary disease with (acute) exacerbation; I10 Essential (primary) hypertension; E78.00 Pure hypercholesterolemia, unspecified; I25.2 Old myocardial infarction; K21.9 Gastro-esophageal reflux disease without esophagitis; R73.03 Prediabetes; F41.9 Anxiety disorder, unspecified; D72.829 Elevated white blood cell count, unspecified; Z99.81 Dependence on supplemental oxygen; R91.8 Other nonspecific abnormal finding of lung field
CPT/HCPCS: 36415; 71045-TC-FY; 71275-TC; 80053; 82550; 82962; 83735; 83880; 84484; 85025; 85027; 85379; 85610; 85730; 87040; 87804; 93005; 93010; 94640; 99291; C9803; J0131; Q9967; U0003; U0005

== ENCOUNTER 2021-04-28 14:11 | Inpatient (IN) | payer OTHER ==
[2021-04-28] MEDS ORDERED: SODIUM CHLORIDE 2,041 ML IV ONE (14:42)
[2021-04-28] MEDS ORDERED: ALBUTEROL SO4 2.5/IPRATROPIUM 0.5 INH SOL 3 ML VIAL.NEB. NEB ONE ×2 (14:51→15:10)
[2021-04-28] MEDS ORDERED: ACETAMINOPHEN 1000 MG/100 ML VIAL IVPB ONE (14:52)
[2021-04-28] MEDS ORDERED: PIPERACILLIN/TAZOB 4.5 GM 4.5 GM in DEXTROSE 5%-WATER 100 ML IVPB ONE (15:09)
[2021-04-28] MEDS ORDERED: ACETAMINOPHEN INJECTION 100 ML IVPB ONE ×2 (15:10→23:12)
[2021-04-28] MEDS ORDERED: PIPERACILLIN/TAZOB 4.5 GM 4.5 GM/100 ML BAG IVPB ONE (16:02)
[2021-04-28 16:28] LABS: HEMATOCRIT 35.9 % (32.4-45.2); HEMOGLOBIN 11.8 GM/dL (10.7-15.3); MEAN CELL VOLUME 87.9 fl (80-96); MEAN PLT VOLUME 8.9 fl (7.5-11.1); PLATELET COUNT 197 10^3/uL (134-434); RBC 4.08 M/mm3 (3.60-5.2); RDW 14.3 % (11.6-15.6); WHITE BLOOD COUNT 14.2 K/mm3 (4.0-10.0)
[2021-04-28 16:33] LABS: VENOUS BASE EXCESS -6.4 mmol/L (-2-2); VENOUS O2 SATURATION 46.8 % (70-80); VENOUS PCO2 31.5 mmHg (38-52); VENOUS PH 7.372 (7.310-7.410)
[2021-04-28 16:35] LABS: INR 1.58 (0.83-1.09); PROTHROMBIN TIME (PATIENT) 17.8 SEC (9.7-13.0)
[2021-04-28 16:49] LABS: CHLORIDE 104 mmol/L (98-107); SODIUM 139 mmol/L (136-145)
[2021-04-28 16:51] LABS: CALCIUM 7.9 mg/dL (8.5-10.1)
[2021-04-28 16:52] LABS: ALBUMIN 2.2 g/dl (3.4-5.0); ANION GAP 8 MMOL/L (8-16); BLOOD UREA NITROGEN 19.6 mg/dL (7-18); CO2 27 mmol/L (21-32); GLUCOSE,RANDOM 139 mg/dL (74-106); MAGNESIUM 1.9 mg/dL (1.8-2.4)
[2021-04-28 16:55] LABS: SGOT/AST 6 U/L (15-37); SGPT/ALT 8 U/L (13-61)
[2021-04-28 16:56] LABS: BILIRUBIN,TOTAL 0.9 mg/dL (0.2-1); TOT PROT 5.6 g/dl (6.4-8.2)
[2021-04-28 16:57] LABS: ALK PHOS 86 U/L (45-117)
[2021-04-28 16:58] LABS: LACTIC ACID 3.4 mmol/L (0.4-2.0)
[2021-04-28 17:00] LABS: N-TERMINAL BNP 217.2 pg/ml (5-125)
[2021-04-28] MEDS ORDERED: ALBUTEROL SO4 2.5/IPRATROPIUM 0.5 INH SOL 3 ML VIAL.NEB. NEB PRN (17:31)
[2021-04-28] MEDS ORDERED: ACETAMINOPHEN 1000 MG/100 ML VIAL IVPB PRN (17:33)
[2021-04-28 17:42] LABS: ANISOCYTOSIS 1+; MACROCYTOSIS 0; PLATELET ESTIMATE NORMAL
[2021-04-28] MEDS: PIPERACILLIN/TAZOB 3.375 GM 3.375 GM in DEXTROSE 5%-WATER - 50 ML IVPB SCH (17:42)
[2021-04-28] MEDS ORDERED: SODIUM CHLORIDE 1,000 ML IV SCH (18:45)
[2021-04-28 22:49] LABS: LACTIC ACID 3.7 mmol/L (0.4-2.0)
[2021-04-28] MEDS: ATORVASTATIN CA 20 MG TABLET (FP) PO SCH (23:00)
[2021-04-28] MEDS ORDERED: ATORVASTATIN CA 20 MG TABLET (FP) ONE (23:12)
[2021-04-29] MEDS ORDERED: SODIUM CHLORIDE 1,000 ML IV STA (02:56)
[2021-04-29] MEDS: PIPERACILLIN/TAZOB 3.375 GM 3.375 GM in DEXTROSE 5%-WATER - 50 ML IVPB SCH ×6 (03:00→18:47)
[2021-04-29] MEDS ORDERED: PIPERACILLIN/TAZOB 3.375 GM 3.375 GM/50 ML BAG IVPB ONE (03:03)
[2021-04-29 06:25] VITALS: BMI 25.4
[2021-04-29] MEDS ORDERED: PIPERACILLIN/TAZOBACTAM 3.375 GM VIAL IVPB ONE ×2 (09:02→17:16)
[2021-04-29] MEDS ORDERED: DEXTROSE 5%-WATER - 50 ML IVPB ONE ×2 (09:03→17:16)
[2021-04-29] MEDS ORDERED: ALBUTEROL SO4 0.083% IH SOL 2.5 MG/3 ML VIAL.NEB. NEB PRN (09:35)
[2021-04-29] MEDS: METOPROLOL TARTRATE 50 MG TABLET (FP) PO SCH ×2 (09:51→09:54)
[2021-04-29] MEDS: methylPREDNISolone NA SUCC 40 MG/1 ML VIAL IVPUSH SCH ×2 (09:51→17:39)
[2021-04-29] MEDS: ASPIRIN COATED 81 MG TABLET.EC PO SCH (09:51)
[2021-04-29] MEDS: ALBUTEROL SO4 2.5/IPRATROPIUM 0.5 INH SOL 3 ML VIAL.NEB. NEB SCH ×3 (11:47→20:30)
[2021-04-29 12:56] LABS: HEMATOCRIT 34.3 % (32.4-45.2); HEMOGLOBIN 11.6 GM/dL (10.7-15.3); MCH 30.2 pg (25.7-33.7); MCHC 33.9 g/dl (32.0-36.0); MEAN CELL VOLUME 89.1 fl (80-96); MEAN PLT VOLUME 9.3 fl (7.5-11.1); PLATELET COUNT 221 10^3/uL (134-434); RBC 3.85 M/mm3 (3.60-5.2); RDW 14.6 % (11.6-15.6); WHITE BLOOD COUNT 15.3 K/mm3 (4.0-10.0)
[2021-04-29 13:18] LABS: ALBUMIN 1.9 g/dl (3.4-5.0); CALCIUM 8.4 mg/dL (8.5-10.1)
[2021-04-29 13:19] LABS: BLOOD UREA NITROGEN 22.2 mg/dL (7-18); MAGNESIUM 2.1 mg/dL (1.8-2.4)
[2021-04-29 13:22] LABS: CREATININE 0.7 mg/dL (0.55-1.3)
[2021-04-29 13:23] LABS: BILIRUBIN,TOTAL 0.4 mg/dL (0.2-1); TOT PROT 5.1 g/dl (6.4-8.2)
[2021-04-29 14:07] LABS: EPI CELLS >36 /uL (0-25.1); HYALINE CASTS 5 /uL (0-3.1); PH,URINE 5.5 (5.0-8.0); URINE APPEARANCE CLEAR; URINE BACTERIA 9 /uL (0-1359); URINE BILIRUBIN NEGATIVE (NEGATIVE); URINE COLOR YELLOW; URINE GLUCOSE (UA) NEGATIVE (NEGATIVE); URINE KETONE 1+ (NEGATIVE); URINE LEUK ESTERASE NEGATIVE (NEGATIVE); URINE NITRITE NEGATIVE (NEGATIVE); URINE PROTEIN 1+ (NEGATIVE); URINE RBC 45 /uL (0-23.9); URINE WBC 8 /uL (0-25.8)
[2021-04-29 14:13] LABS: ANISOCYTOSIS 1+; MACROCYTOSIS 0; PLATELET ESTIMATE NORMAL
[2021-04-29] MEDS ORDERED: ZOLPIDEM TARTRATE 5 MG TABLET PO ONE (22:00)
[2021-04-29] MEDS: ATORVASTATIN CA 20 MG TABLET (FP) PO SCH (22:56)
[2021-04-30] MEDS ORDERED: PIPERACILLIN/TAZOBACTAM 3.375 GM VIAL IVPB ONE ×3 (01:11→16:50)
[2021-04-30] MEDS ORDERED: DEXTROSE 5%-WATER - 50 ML IVPB ONE ×3 (01:11→16:50)
[2021-04-30] MEDS: methylPREDNISolone NA SUCC 40 MG/1 ML VIAL IVPUSH SCH ×3 (01:52→17:03)
[2021-04-30] MEDS: PIPERACILLIN/TAZOB 3.375 GM 3.375 GM in DEXTROSE 5%-WATER - 50 ML IVPB SCH ×3 (01:52→17:03)
[2021-04-30] MEDS: ALBUTEROL SO4 2.5/IPRATROPIUM 0.5 INH SOL 3 ML VIAL.NEB. NEB SCH ×4 (09:31→20:10)
[2021-04-30] MEDS: METOPROLOL TARTRATE 50 MG TABLET (FP) PO SCH (10:20)
[2021-04-30] MEDS: ASPIRIN COATED 81 MG TABLET.EC PO SCH (10:21)
[2021-04-30] MEDS ORDERED: FLU VACC QS2021-22(6MOS UP)/PF 60 MCG/0.5 ML SYRINGE IM ONE (17:00)
[2021-04-30] MEDS: ATORVASTATIN CA 20 MG TABLET (FP) PO SCH (21:03)
[2021-04-30] MEDS ORDERED: ZOLPIDEM TARTRATE 5 MG TABLET PO ONE (21:54)
[2021-05-01] MEDS ORDERED: PIPERACILLIN/TAZOBACTAM 3.375 GM VIAL IVPB ONE ×3 (01:21→16:46)
[2021-05-01] MEDS ORDERED: DEXTROSE 5%-WATER - 50 ML IVPB ONE ×3 (01:22→16:46)
[2021-05-01] MEDS: methylPREDNISolone NA SUCC 40 MG/1 ML VIAL IVPUSH SCH (01:27)
[2021-05-01] MEDS: PIPERACILLIN/TAZOB 3.375 GM 3.375 GM in DEXTROSE 5%-WATER - 50 ML IVPB SCH ×3 (01:27→17:42)
[2021-05-01] MEDS: ALBUTEROL SO4 2.5/IPRATROPIUM 0.5 INH SOL 3 ML VIAL.NEB. NEB SCH ×4 (07:55→20:18)
[2021-05-01] MEDS: METOPROLOL TARTRATE 50 MG TABLET (FP) PO SCH (10:51)
[2021-05-01] MEDS: predniSONE 20 MG TABLET (UD) PO SCH (10:51)
[2021-05-01] MEDS: ASPIRIN COATED 81 MG TABLET.EC PO SCH (10:51)
[2021-05-01] MEDS: NYSTATIN 500,000 UNITS/5 ML SUSPENSION PO SCH ×3 (12:39→23:28)
[2021-05-01] MEDS ORDERED: ZOLPIDEM TARTRATE 5 MG TABLET PO PRN (19:59)
[2021-05-01] MEDS: PANTOPRAZOLE 40 MG TABLET PO SCH (20:25)
[2021-05-01] MEDS: ATORVASTATIN CA 20 MG TABLET (FP) PO SCH (22:44)
[2021-05-02] MEDS ORDERED: DEXTROSE 5%-WATER - 50 ML IVPB ONE ×2 (02:14→09:14)
[2021-05-02] MEDS ORDERED: PIPERACILLIN/TAZOBACTAM 3.375 GM VIAL IVPB ONE ×2 (02:14→09:14)
[2021-05-02] MEDS: PIPERACILLIN/TAZOB 3.375 GM 3.375 GM in DEXTROSE 5%-WATER - 50 ML IVPB SCH ×2 (02:19→10:15)
[2021-05-02] MEDS: NYSTATIN 500,000 UNITS/5 ML SUSPENSION PO SCH (05:49)
[2021-05-02 06:06] VITALS: TEMP 98.7
[2021-05-02] MEDS: ALBUTEROL SO4 2.5/IPRATROPIUM 0.5 INH SOL 3 ML VIAL.NEB. NEB SCH (08:48)
[2021-05-02] MEDS: predniSONE 20 MG TABLET (UD) PO SCH (09:43)
[2021-05-02] MEDS: ASPIRIN COATED 81 MG TABLET.EC PO SCH (09:43)
[2021-05-02] MEDS: PANTOPRAZOLE 40 MG TABLET PO SCH (09:43)
[2021-05-02] MEDS: METOPROLOL TARTRATE 50 MG TABLET (FP) PO SCH (09:43)
[2021-05-02 10:24] VITALS: BP 112/56; PULSE 95
== END 2021-05-02 11:05 | disposition home or self-care (01) | DRG 871 ==
LOC: JER 14:11 → JERBED 17:20 → J7W 04-29 03:13
PROVIDERS: ADMIT Internal Medicine; ATTEND Internal Medicine
DX: A41.9 Sepsis, unspecified organism (principal); J18.9 Pneumonia, unspecified organism; J96.11 Chronic respiratory failure with hypoxia; E87.2 Acidosis; J44.1 Chronic obstructive pulmonary disease with (acute) exacerbation; Z99.81 Dependence on supplemental oxygen; I25.10 Atherosclerotic heart disease of native coronary artery without angina pectoris; I10 Essential (primary) hypertension; Z86.73 Personal history of transient ischemic attack (TIA), and cerebral infarction without residual deficits; G47.00 Insomnia, unspecified
CPT/HCPCS: 36415; 71045-TC-FY; 80053; 81003; 82803; 83605; 83690; 83735; 83880; 84484; 85025; 85610; 85730; 87040; 87899; 90686; 93005; 93010; 94640; 99285-25; C9803; G0008; J0131; U0003; U0005

== ENCOUNTER 2021-05-07 01:37 | Inpatient (IN) | payer OTHER ==
[2021-05-07] MEDS ORDERED: SODIUM CHLORIDE 0.9% 500 ML INFUS.BAG IV ONE (03:14)
[2021-05-07 03:27] LABS: HEMATOCRIT 39.5 % (32.4-45.2); MCH 28.9 pg (25.7-33.7); MCHC 32.9 g/dl (32.0-36.0); MEAN PLT VOLUME 7.9 fl (7.5-11.1); PLATELET COUNT 406 10^3/uL (134-434); RBC 4.49 M/mm3 (3.60-5.2); WHITE BLOOD COUNT 26.9 K/mm3 (4.0-10.0)
[2021-05-07 03:41] LABS: INR 1.41 (0.83-1.09); PROTHROMBIN TIME (PATIENT) 15.9 SEC (9.7-13.0)
[2021-05-07 03:42] LABS: CHLORIDE 102 mmol/L (98-107); SODIUM 139 mmol/L (136-145)
[2021-05-07] MEDS ORDERED: PIPERACILLIN/TAZOB 4.5 GM 4.5 GM in DEXTROSE 5%-WATER 100 ML IVPB ONE (03:42)
[2021-05-07 03:44] LABS: ACTIVATED PTT 29.3 SECONDS (25.2-36.5)
[2021-05-07 03:45] LABS: CALCIUM 7.6 mg/dL (8.5-10.1)
[2021-05-07 03:46] LABS: ALBUMIN 1.9 g/dl (3.4-5.0); ANION GAP 10 MMOL/L (8-16); BLOOD UREA NITROGEN 12.8 mg/dL (7-18); CO2 27 mmol/L (21-32); GLUCOSE,RANDOM 94 mg/dL (74-106); MAGNESIUM 1.6 mg/dL (1.8-2.4)
[2021-05-07 03:49] LABS: CREATININE 0.7 mg/dL (0.55-1.3); SGOT/AST 13 U/L (15-37); SGPT/ALT 20 U/L (13-61)
[2021-05-07 03:50] LABS: TOT PROT 5.6 g/dl (6.4-8.2)
[2021-05-07 03:52] LABS: ALK PHOS 92 U/L (45-117)
[2021-05-07] MEDS ORDERED: PIPERACILLIN/TAZOB 4.5 GM 4.5 GM/100 ML BAG IVPB ONE (03:52)
[2021-05-07] MEDS ORDERED: ACETAMINOPHEN 1000 MG/100 ML VIAL IVPB ONE (03:53)
[2021-05-07] MEDS ORDERED: ACETAMINOPHEN INJECTION 100 ML IVPB ONE (03:55)
[2021-05-07] MEDS ORDERED: MAGNESIUM SULF 50% (8.12 MEQ/2 ML-1 GM VIAL) IVPB ONE (04:40)
[2021-05-07] MEDS ORDERED: MAGNESIUM 1GM/D5W - 1 GM/100 ML IVPB IVPB ONE (05:44)
[2021-05-07] MEDS ORDERED: ALBUTEROL SO4 HFA INHALER IH PRN (06:56)
[2021-05-07] MEDS ORDERED: VANCOMYCIN 1 GM in D5W (PRE-DOCKED) 1,000 MG/250 ML IVPB SCH (10:00)
[2021-05-07 10:21] LABS: EPI CELLS 10 /uL (0-25.1); HYALINE CASTS 1 /uL (0-3.1); URINE APPEARANCE CLEAR; URINE BACTERIA 5 /uL (0-1359); URINE BILIRUBIN NEGATIVE (NEGATIVE); URINE COLOR YELLOW; URINE GLUCOSE (UA) NEGATIVE (NEGATIVE); URINE KETONE TRACE (NEGATIVE); URINE LEUK ESTERASE NEGATIVE (NEGATIVE); URINE NITRITE NEGATIVE (NEGATIVE); URINE PROTEIN 1+ (NEGATIVE); URINE WBC 7 /uL (0-25.8)
[2021-05-07] MEDS ORDERED: PANTOPRAZOLE 20 MG TABLET PO ONE (10:42)
[2021-05-07] MEDS ORDERED: METOPROLOL TARTRATE 50 MG TABLET (FP) ONE (10:42)
[2021-05-07] MEDS ORDERED: LISINOPRIL 20 MG TABLET ONE (10:42)
[2021-05-07] MEDS ORDERED: ENOXAPARIN NA (PORCINE) 40 MG/0.4 ML DISP.SYRIN SQ ONE (10:43)
[2021-05-07] MEDS: METOPROLOL TARTRATE 50 MG TABLET (FP) PO SCH (10:48)
[2021-05-07] MEDS: ENOXAPARIN NA (PORCINE) 40 MG/0.4 ML DISP.SYRIN SQ SCH (10:48)
[2021-05-07] MEDS: LISINOPRIL 20 MG TABLET PO SCH (10:52)
[2021-05-07] MEDS: PANTOPRAZOLE 20 MG TABLET PO SCH (10:52)
[2021-05-07] MEDS ORDERED: PIPERACILLIN/TAZOB 3.375 GM 3.375 GM in DEXTROSE 5%-WATER - 50 ML IVPB SCH (11:00)
[2021-05-07] MEDS ORDERED: DEXTROSE 5%-WATER - 50 ML IVPB ONE ×2 (12:36→18:42)
[2021-05-07] MEDS ORDERED: PIPERACILLIN/TAZOBACTAM 3.375 GM VIAL IVPB ONE ×2 (12:36→18:42)
[2021-05-07] MEDS: PIPERACILLIN/TAZOB 3.375 GM 3.375 GM in DEXTROSE 5%-WATER - 50 ML IVPB SCH ×2 (12:55→18:43)
[2021-05-07] MEDS: VANCOMYCIN 1 GM in D5W (PRE-DOCKED) 1,000 MG/250 ML IVPB SCH ×2 (12:55→21:41)
[2021-05-07 13:40] LABS: HEMATOCRIT 34.9 % (32.4-45.2); HEMOGLOBIN 11.6 GM/dL (10.7-15.3); MCH 29.2 pg (25.7-33.7); MCHC 33.2 g/dl (32.0-36.0); MEAN CELL VOLUME 87.9 fl (80-96); MEAN PLT VOLUME 8.1 fl (7.5-11.1); PLATELET COUNT 332 10^3/uL (134-434); RBC 3.97 M/mm3 (3.60-5.2); WHITE BLOOD COUNT 23.4 K/mm3 (4.0-10.0)
[2021-05-07 14:21] LABS: CALCIUM 7.6 mg/dL (8.5-10.1)
[2021-05-07 14:22] LABS: BLOOD UREA NITROGEN 12.2 mg/dL (7-18)
[2021-05-07 14:25] LABS: CREATININE 0.6 mg/dL (0.55-1.3)
[2021-05-07 14:29] LABS: URINE RBC 86.5 /uL (0-23.9)
[2021-05-07] MEDS: FLUTICASONE/SALMETEROL 100 MCG/50 MCG DISKUS IH SCH ×2 (17:38→21:38)
[2021-05-07] MEDS: ZOLPIDEM TARTRATE 5 MG TABLET PO PRN (21:39)
[2021-05-07] MEDS: ATORVASTATIN CA 20 MG TABLET (FP) PO SCH (21:39)
[2021-05-07] MEDS: ACETAMINOPHEN 325 MG TABLET (FP) PO PRN (22:26)
[2021-05-08] MEDS ORDERED: PIPERACILLIN/TAZOBACTAM 3.375 GM VIAL IVPB ONE ×3 (00:22→17:10)
[2021-05-08] MEDS ORDERED: DEXTROSE 5%-WATER - 50 ML IVPB ONE ×3 (00:23→17:10)
[2021-05-08] MEDS: PIPERACILLIN/TAZOB 3.375 GM 3.375 GM in DEXTROSE 5%-WATER - 50 ML IVPB SCH ×3 (01:00→17:57)
[2021-05-08] MEDS: FLUTICASONE/SALMETEROL 100 MCG/50 MCG DISKUS IH SCH ×2 (09:44→21:43)
[2021-05-08] MEDS: ASPIRIN COATED 81 MG TABLET.EC PO SCH (09:44)
[2021-05-08] MEDS: METOPROLOL TARTRATE 50 MG TABLET (FP) PO SCH (09:45)
[2021-05-08] MEDS: PANTOPRAZOLE 20 MG TABLET PO SCH (09:45)
[2021-05-08] MEDS: ENOXAPARIN NA (PORCINE) 40 MG/0.4 ML DISP.SYRIN SQ SCH (09:45)
[2021-05-08] MEDS: LISINOPRIL 20 MG TABLET PO SCH (09:45)
[2021-05-08] MEDS: VANCOMYCIN 1 GM in D5W (PRE-DOCKED) 1,000 MG/250 ML IVPB SCH ×2 (10:26→21:43)
[2021-05-08 14:23] LABS: HEMATOCRIT 31.1 % (32.4-45.2); HEMOGLOBIN 10.4 GM/dL (10.7-15.3); MCH 29.6 pg (25.7-33.7); MCHC 33.5 g/dl (32.0-36.0); MEAN CELL VOLUME 88.2 fl (80-96); PLATELET COUNT 344 10^3/uL (134-434); RBC 3.53 M/mm3 (3.60-5.2); RDW 15.2 % (11.6-15.6); WHITE BLOOD COUNT 20.2 K/mm3 (4.0-10.0)
[2021-05-08 15:28] LABS: CALCIUM 7.4 mg/dL (8.5-10.1)
[2021-05-08 15:29] LABS: BLOOD UREA NITROGEN 19.1 mg/dL (7-18)
[2021-05-08 15:30] LABS: CREATININE 1.9 mg/dL (0.55-1.3)
[2021-05-08 15:32] LABS: BILIRUBIN,TOTAL 0.9 mg/dL (0.2-1); TOT PROT 4.8 g/dl (6.4-8.2)
[2021-05-08 15:44] LABS: ALBUMIN 1.4 g/dl (3.4-5.0)
[2021-05-08] MEDS ORDERED: POTASSIUM CHLORIDE TABS 20 MEQ TABLET.ER (FP) PO ONE (16:36)
[2021-05-08] MEDS: ATORVASTATIN CA 20 MG TABLET (FP) PO SCH (21:42)
[2021-05-08] MEDS: ZOLPIDEM TARTRATE 5 MG TABLET PO PRN (21:42)
[2021-05-08] MEDS: ACETAMINOPHEN 325 MG TABLET (FP) PO PRN (21:42)
[2021-05-09] MEDS ORDERED: PIPERACILLIN/TAZOBACTAM 3.375 GM VIAL IVPB ONE ×2 (01:03→09:29)
[2021-05-09] MEDS ORDERED: DEXTROSE 5%-WATER - 50 ML IVPB ONE ×2 (01:03→09:29)
[2021-05-09] MEDS: PIPERACILLIN/TAZOB 3.375 GM 3.375 GM in DEXTROSE 5%-WATER - 50 ML IVPB SCH ×2 (02:24→10:06)
[2021-05-09 08:39] LABS: HEMATOCRIT 33.2 % (32.4-45.2); MCH 29.1 pg (25.7-33.7); MEAN CELL VOLUME 88.1 fl (80-96); MEAN PLT VOLUME 7.9 fl (7.5-11.1); PLATELET COUNT 381 10^3/uL (134-434); RBC 3.77 M/mm3 (3.60-5.2); RDW 15.4 % (11.6-15.6); WHITE BLOOD COUNT 20.2 K/mm3 (4.0-10.0)
[2021-05-09] MEDS ORDERED: PT OWN MED DRAWER 7, Y5N ONE ×2 (09:29→21:55)
[2021-05-09] MEDS: ASPIRIN COATED 81 MG TABLET.EC PO SCH (10:06)
[2021-05-09] MEDS: methylPREDNISolone NA SUCC 40 MG/1 ML VIAL IVPUSH SCH ×2 (10:06→17:08)
[2021-05-09] MEDS: LISINOPRIL 20 MG TABLET PO SCH (10:06)
[2021-05-09] MEDS: ENOXAPARIN NA (PORCINE) 40 MG/0.4 ML DISP.SYRIN SQ SCH (10:06)
[2021-05-09] MEDS: METOPROLOL TARTRATE 50 MG TABLET (FP) PO SCH (10:07)
[2021-05-09] MEDS: FLUTICASONE/SALMETEROL 100 MCG/50 MCG DISKUS IH SCH ×2 (10:07→22:00)
[2021-05-09] MEDS: PANTOPRAZOLE 20 MG TABLET PO SCH (10:07)
[2021-05-09] MEDS: VANCOMYCIN 1 GM in D5W (PRE-DOCKED) 1,000 MG/250 ML IVPB SCH (13:35)
[2021-05-09] MEDS: SODIUM CHLORIDE 0.45%/POT 20 MEQ/1,000 ML INFUS.BAG IV SCH (15:12)
[2021-05-09 15:35] VITALS: BMI 26.7
[2021-05-09] MEDS: ATORVASTATIN CA 20 MG TABLET (FP) PO SCH (21:59)
[2021-05-09] MEDS: CEFEPIME 1 GM in DEXTROSE 5%-WATER 100 ML IVPB SCH (22:00)
[2021-05-09] MEDS ORDERED: CEFEPIME 1 GM in DEXTROSE 5%-WATER - 100 ML IVPB SCH (22:00)
[2021-05-09] MEDS: ZOLPIDEM TARTRATE 5 MG TABLET PO PRN (22:04)
[2021-05-10] MEDS: methylPREDNISolone NA SUCC 40 MG/1 ML VIAL IVPUSH SCH ×3 (02:48→17:39)
[2021-05-10 08:07] LABS: HEMATOCRIT 31.1 % (32.4-45.2); HEMOGLOBIN 10.4 GM/dL (10.7-15.3); MCH 29.2 pg (25.7-33.7); MCHC 33.3 g/dl (32.0-36.0); MEAN CELL VOLUME 87.6 fl (80-96); MEAN PLT VOLUME 8.1 fl (7.5-11.1); PLATELET COUNT 361 10^3/uL (134-434); RBC 3.55 M/mm3 (3.60-5.2); RDW 15.6 % (11.6-15.6); WHITE BLOOD COUNT 17.6 K/mm3 (4.0-10.0)
[2021-05-10 08:25] LABS: ALBUMIN 1.4 g/dl (3.4-5.0); CALCIUM 7.7 mg/dL (8.5-10.1)
[2021-05-10 08:27] LABS: CREATININE 3.6 mg/dL (0.55-1.3)
[2021-05-10 08:29] LABS: BILIRUBIN,TOTAL 0.4 mg/dL (0.2-1); TOT PROT 5.1 g/dl (6.4-8.2)
[2021-05-10] MEDS ORDERED: PT OWN MED DRAWER 7, Y5N ONE (10:11)
[2021-05-10] MEDS ORDERED: CEFEPIME HCL 1 GM VIAL (RESTRICTED TO ID) ONE ×2 (10:11→20:59)
[2021-05-10] MEDS ORDERED: DEXTROSE 5%-WATER 100 ML IVPB ONE ×2 (10:12→21:00)
[2021-05-10] MEDS: ENOXAPARIN NA (PORCINE) 40 MG/0.4 ML DISP.SYRIN SQ SCH (10:20)
[2021-05-10] MEDS: METOPROLOL TARTRATE 50 MG TABLET (FP) PO SCH (10:20)
[2021-05-10] MEDS: PANTOPRAZOLE 20 MG TABLET PO SCH (10:20)
[2021-05-10] MEDS: LISINOPRIL 20 MG TABLET PO SCH (10:20)
[2021-05-10] MEDS: ASPIRIN COATED 81 MG TABLET.EC PO SCH (10:20)
[2021-05-10] MEDS: CEFEPIME 1 GM in DEXTROSE 5%-WATER 100 ML IVPB SCH ×2 (10:20→21:58)
[2021-05-10] MEDS: FLUTICASONE/SALMETEROL 100 MCG/50 MCG DISKUS IH SCH ×2 (10:31→21:58)
[2021-05-10 17:21] LABS: URINE APPEARANCE CLEAR; URINE BILIRUBIN NEGATIVE (NEGATIVE); URINE COLOR YELLOW; URINE GLUCOSE (UA) NEGATIVE (NEGATIVE); URINE KETONE NEGATIVE (NEGATIVE); URINE LEUK ESTERASE NEGATIVE (NEGATIVE); URINE NITRITE NEGATIVE (NEGATIVE); URINE PROTEIN TRACE (NEGATIVE); URINE UROBILINOGEN 0.2 mg/dL (0.2-1.0)
[2021-05-10] MEDS: SODIUM CHLORIDE 0.45%/POT 20 MEQ/1,000 ML INFUS.BAG IV SCH (17:38)
[2021-05-10] MEDS ORDERED: INSULIN (NOVOLOG MIX 70/30) 100 UNITS/ML MDV SQ ONE (20:59)
[2021-05-10] MEDS ORDERED: INSULIN (NOVOLOG) ASPART 100 UNITS/ML 10ML VIAL ONE (20:59)
[2021-05-10] MEDS: ATORVASTATIN CA 20 MG TABLET (FP) PO SCH (21:57)
[2021-05-10] MEDS: HEPARIN NA (PORCINE) 5,000 UNITS/ML 1ML VIAL SQ SCH (21:58)
[2021-05-10] MEDS: ZOLPIDEM TARTRATE 5 MG TABLET PO PRN (22:44)
[2021-05-11] MEDS: SODIUM CHLORIDE 0.45%/POT 20 MEQ/1,000 ML INFUS.BAG IV SCH ×3 (01:42→19:35)
[2021-05-11] MEDS: methylPREDNISolone NA SUCC 40 MG/1 ML VIAL IVPUSH SCH ×3 (01:43→21:13)
[2021-05-11] MEDS ORDERED: CEFEPIME HCL 1 GM VIAL (RESTRICTED TO ID) ONE ×2 (09:56→20:59)
[2021-05-11] MEDS ORDERED: DEXTROSE 5%-WATER 100 ML IVPB ONE ×2 (09:56→20:59)
[2021-05-11 10:00] LABS: ALBUMIN 1.6 g/dl (3.4-5.0)
[2021-05-11 10:01] LABS: BLOOD UREA NITROGEN 44.7 mg/dL (7-18)
[2021-05-11 10:03] LABS: CREATININE 3.3 mg/dL (0.55-1.3)
[2021-05-11 10:05] LABS: BILIRUBIN,TOTAL 0.2 mg/dL (0.2-1); TOT PROT 5.4 g/dl (6.4-8.2)
[2021-05-11] MEDS: METOPROLOL TARTRATE 50 MG TABLET (FP) PO SCH (10:19)
[2021-05-11] MEDS: ASPIRIN COATED 81 MG TABLET.EC PO SCH (10:19)
[2021-05-11] MEDS: PANTOPRAZOLE 20 MG TABLET PO SCH (10:20)
[2021-05-11] MEDS: HEPARIN NA (PORCINE) 5,000 UNITS/ML 1ML VIAL SQ SCH ×2 (10:21→21:13)
[2021-05-11] MEDS: FLUTICASONE/SALMETEROL 100 MCG/50 MCG DISKUS IH SCH ×2 (10:23→21:14)
[2021-05-11] MEDS: CEFEPIME 1 GM in DEXTROSE 5%-WATER 100 ML IVPB SCH ×2 (10:23→21:13)
[2021-05-11 11:23] LABS: CALCIUM 7.9 mg/dL (8.5-10.1)
[2021-05-11] MEDS: ZOLPIDEM TARTRATE 5 MG TABLET PO PRN (21:13)
[2021-05-11] MEDS: ATORVASTATIN CA 20 MG TABLET (FP) PO SCH (21:13)
[2021-05-12 10:00] LABS: HEMATOCRIT 31.6 % (32.4-45.2); HEMOGLOBIN 10.5 GM/dL (10.7-15.3); MCH 28.9 pg (25.7-33.7); MCHC 33.2 g/dl (32.0-36.0); MEAN CELL VOLUME 87.3 fl (80-96); MEAN PLT VOLUME 8.1 fl (7.5-11.1); PLATELET COUNT 424 10^3/uL (134-434); RBC 3.62 M/mm3 (3.60-5.2); RDW 15.7 % (11.6-15.6); WHITE BLOOD COUNT 18.3 K/mm3 (4.0-10.0)
[2021-05-12] MEDS ORDERED: CEFEPIME HCL 1 GM VIAL (RESTRICTED TO ID) ONE ×2 (10:19→20:53)
[2021-05-12] MEDS ORDERED: DEXTROSE 5%-WATER 100 ML IVPB ONE ×2 (10:20→20:53)
[2021-05-12] MEDS: METOPROLOL TARTRATE 50 MG TABLET (FP) PO SCH (10:36)
[2021-05-12] MEDS: CEFEPIME 1 GM in DEXTROSE 5%-WATER 100 ML IVPB SCH ×2 (10:36→21:24)
[2021-05-12] MEDS: methylPREDNISolone NA SUCC 40 MG/1 ML VIAL IVPUSH SCH ×2 (10:37→21:24)
[2021-05-12] MEDS: FLUTICASONE/SALMETEROL 100 MCG/50 MCG DISKUS IH SCH ×2 (10:38→21:24)
[2021-05-12] MEDS: PANTOPRAZOLE 20 MG TABLET PO SCH (10:38)
[2021-05-12] MEDS: HEPARIN NA (PORCINE) 5,000 UNITS/ML 1ML VIAL SQ SCH ×2 (10:38→21:24)
[2021-05-12] MEDS: ASPIRIN COATED 81 MG TABLET.EC PO SCH (10:38)
[2021-05-12 11:02] LABS: ALBUMIN 1.7 g/dl (3.4-5.0); BLOOD UREA NITROGEN 55.4 mg/dL (7-18); CALCIUM 7.8 mg/dL (8.5-10.1)
[2021-05-12 11:05] LABS: CREATININE 3.1 mg/dL (0.55-1.3)
[2021-05-12 11:07] LABS: BILIRUBIN,TOTAL 0.3 mg/dL (0.2-1); TOT PROT 5.4 g/dl (6.4-8.2)
[2021-05-12] MEDS: SODIUM CHLORIDE 0.45%/POT 20 MEQ/1,000 ML INFUS.BAG IV SCH ×2 (12:17→18:21)
[2021-05-12] MEDS: SODIUM CHLORIDE 0.45% 1,000 ML IV SCH (18:09)
[2021-05-12] MEDS: ZOLPIDEM TARTRATE 5 MG TABLET PO PRN (21:23)
[2021-05-12] MEDS: ATORVASTATIN CA 20 MG TABLET (FP) PO SCH (21:24)
[2021-05-13] MEDS ORDERED: CEFEPIME HCL 1 GM VIAL (RESTRICTED TO ID) ONE ×2 (10:15→22:07)
[2021-05-13] MEDS ORDERED: DEXTROSE 5%-WATER 100 ML IVPB ONE ×2 (10:15→22:07)
[2021-05-13] MEDS: SODIUM CHLORIDE 0.45% 1,000 ML IV SCH ×2 (10:19→22:15)
[2021-05-13] MEDS: ASPIRIN COATED 81 MG TABLET.EC PO SCH (10:20)
[2021-05-13] MEDS: HEPARIN NA (PORCINE) 5,000 UNITS/ML 1ML VIAL SQ SCH ×2 (10:20→22:16)
[2021-05-13] MEDS: PANTOPRAZOLE 20 MG TABLET PO SCH (10:20)
[2021-05-13] MEDS: FLUTICASONE/SALMETEROL 100 MCG/50 MCG DISKUS IH SCH ×2 (10:20→22:16)
[2021-05-13] MEDS: METOPROLOL TARTRATE 50 MG TABLET (FP) PO SCH (10:20)
[2021-05-13] MEDS: CEFEPIME 1 GM in DEXTROSE 5%-WATER 100 ML IVPB SCH ×2 (10:20→22:16)
[2021-05-13] MEDS: methylPREDNISolone NA SUCC 40 MG/1 ML VIAL IVPUSH SCH ×2 (10:21→22:16)
[2021-05-13] MEDS ORDERED: PT OWN MED DRAWER 7, Y5N ONE (12:36)
[2021-05-13] MEDS: ATORVASTATIN CA 20 MG TABLET (FP) PO SCH (22:16)
[2021-05-13] MEDS: ZOLPIDEM TARTRATE 5 MG TABLET PO PRN (23:26)
[2021-05-14] MEDS ORDERED: DEXTROSE 5%-WATER 100 ML IVPB ONE ×2 (09:05→22:09)
[2021-05-14] MEDS ORDERED: CEFEPIME HCL 1 GM VIAL (RESTRICTED TO ID) ONE ×2 (09:05→22:09)
[2021-05-14] MEDS: HEPARIN NA (PORCINE) 5,000 UNITS/ML 1ML VIAL SQ SCH ×2 (09:16→22:21)
[2021-05-14] MEDS: CEFEPIME 1 GM in DEXTROSE 5%-WATER 100 ML IVPB SCH ×2 (09:16→22:21)
[2021-05-14] MEDS: ASPIRIN COATED 81 MG TABLET.EC PO SCH (09:16)
[2021-05-14] MEDS: PANTOPRAZOLE 20 MG TABLET PO SCH (09:16)
[2021-05-14] MEDS: METOPROLOL TARTRATE 50 MG TABLET (FP) PO SCH (09:16)
[2021-05-14] MEDS: methylPREDNISolone NA SUCC 40 MG/1 ML VIAL IVPUSH SCH (09:17)
[2021-05-14] MEDS: FLUTICASONE/SALMETEROL 100 MCG/50 MCG DISKUS IH SCH ×2 (09:17→22:21)
[2021-05-14] MEDS: ATORVASTATIN CA 20 MG TABLET (FP) PO SCH (22:21)
[2021-05-14] MEDS: ZOLPIDEM TARTRATE 5 MG TABLET PO PRN (22:21)
[2021-05-14] MEDS: SODIUM CHLORIDE 0.45% 1,000 ML IV SCH (22:25)
[2021-05-15 09:11] LABS: HEMATOCRIT 30.7 % (32.4-45.2); HEMOGLOBIN 10.1 GM/dL (10.7-15.3); MCH 28.6 pg (25.7-33.7); MCHC 32.7 g/dl (32.0-36.0); MEAN CELL VOLUME 87.2 fl (80-96); MEAN PLT VOLUME 8.3 fl (7.5-11.1); PLATELET COUNT 382 10^3/uL (134-434); RBC 3.52 M/mm3 (3.60-5.2); RDW 15.5 % (11.6-15.6)
[2021-05-15 09:35] LABS: CALCIUM 7.8 mg/dL (8.5-10.1)
[2021-05-15 09:36] LABS: ALBUMIN 1.8 g/dl (3.4-5.0); BLOOD UREA NITROGEN 63.4 mg/dL (7-18)
[2021-05-15 09:39] LABS: CREATININE 2.1 mg/dL (0.55-1.3)
[2021-05-15 09:41] LABS: BILIRUBIN,TOTAL 0.5 mg/dL (0.2-1); TOT PROT 4.9 g/dl (6.4-8.2)
[2021-05-15] MEDS ORDERED: CEFEPIME HCL 1 GM VIAL (RESTRICTED TO ID) ONE (09:43)
[2021-05-15] MEDS ORDERED: DEXTROSE 5%-WATER 100 ML IVPB ONE (09:43)
[2021-05-15] MEDS: predniSONE 20 MG TABLET (UD) PO SCH (09:51)
[2021-05-15] MEDS: PANTOPRAZOLE 20 MG TABLET PO SCH (09:51)
[2021-05-15] MEDS: CEFEPIME 1 GM in DEXTROSE 5%-WATER 100 ML IVPB SCH (09:52)
[2021-05-15] MEDS: FLUTICASONE/SALMETEROL 100 MCG/50 MCG DISKUS IH SCH ×2 (09:53→22:40)
[2021-05-15] MEDS: ASPIRIN COATED 81 MG TABLET.EC PO SCH (09:54)
[2021-05-15] MEDS: METOPROLOL TARTRATE 50 MG TABLET (FP) PO SCH (09:54)
[2021-05-15] MEDS: HEPARIN NA (PORCINE) 5,000 UNITS/ML 1ML VIAL SQ SCH ×2 (09:56→22:39)
[2021-05-15] MEDS: SODIUM CHLORIDE 0.45% 1,000 ML IV SCH ×2 (19:02→22:39)
[2021-05-15] MEDS: CEFEPIME 2 GM in DEXTROSE 5%-WATER 100 ML IVPB SCH (22:39)
[2021-05-15] MEDS: ZOLPIDEM TARTRATE 5 MG TABLET PO PRN (22:40)
[2021-05-15] MEDS: ATORVASTATIN CA 20 MG TABLET (FP) PO SCH (22:40)
[2021-05-16] MEDS ORDERED: PT OWN MED DRAWER 7, Y5N ONE (10:39)
[2021-05-16] MEDS: PANTOPRAZOLE 20 MG TABLET PO SCH (10:43)
[2021-05-16] MEDS: ASPIRIN COATED 81 MG TABLET.EC PO SCH (10:43)
[2021-05-16] MEDS: CEFEPIME 2 GM in DEXTROSE 5%-WATER 100 ML IVPB SCH ×2 (10:43→22:04)
[2021-05-16] MEDS: HEPARIN NA (PORCINE) 5,000 UNITS/ML 1ML VIAL SQ SCH ×2 (10:43→22:03)
[2021-05-16] MEDS: METOPROLOL TARTRATE 50 MG TABLET (FP) PO SCH (10:43)
[2021-05-16] MEDS: predniSONE 20 MG TABLET (UD) PO SCH (10:43)
[2021-05-16] MEDS: FLUTICASONE/SALMETEROL 100 MCG/50 MCG DISKUS IH SCH ×2 (10:43→22:03)
[2021-05-16] MEDS: SODIUM CHLORIDE 0.45% 1,000 ML IV SCH (22:02)
[2021-05-16] MEDS: ZOLPIDEM TARTRATE 5 MG TABLET PO PRN (22:03)
[2021-05-16] MEDS: ATORVASTATIN CA 20 MG TABLET (FP) PO SCH (22:03)
[2021-05-17 09:14] LABS: HEMATOCRIT 29.9 % (32.4-45.2); HEMOGLOBIN 9.9 GM/dL (10.7-15.3); MCH 29.5 pg (25.7-33.7); MCHC 33.2 g/dl (32.0-36.0); MEAN CELL VOLUME 88.8 fl (80-96); MEAN PLT VOLUME 8.7 fl (7.5-11.1); PLATELET COUNT 393 10^3/uL (134-434); RBC 3.36 M/mm3 (3.60-5.2); RDW 15.8 % (11.6-15.6)
[2021-05-17 09:53] LABS: BLOOD UREA NITROGEN 47.4 mg/dL (7-18); CALCIUM 7.7 mg/dL (8.5-10.1)
[2021-05-17 09:54] LABS: ALBUMIN 1.8 g/dl (3.4-5.0)
[2021-05-17 09:56] LABS: CREATININE 1.9 mg/dL (0.55-1.3)
[2021-05-17 09:57] LABS: BILIRUBIN,TOTAL 0.3 mg/dL (0.2-1)
[2021-05-17] MEDS: ASPIRIN COATED 81 MG TABLET.EC PO SCH (12:11)
[2021-05-17] MEDS: METOPROLOL TARTRATE 50 MG TABLET (FP) PO SCH (12:12)
[2021-05-17] MEDS: HEPARIN NA (PORCINE) 5,000 UNITS/ML 1ML VIAL SQ SCH (12:12)
[2021-05-17] MEDS: predniSONE 20 MG TABLET (UD) PO SCH (12:12)
[2021-05-17] MEDS: CEFEPIME 2 GM in DEXTROSE 5%-WATER 100 ML IVPB SCH ×2 (12:13→21:59)
[2021-05-17] MEDS: FLUTICASONE/SALMETEROL 100 MCG/50 MCG DISKUS IH SCH ×2 (12:13→21:58)
[2021-05-17] MEDS: PANTOPRAZOLE 20 MG TABLET PO SCH (12:14)
[2021-05-17] MEDS: SODIUM ZIRCONIUM CYCLOSILICATE (LOKELMA) 5 GM PACKET PO SCH (16:51)
[2021-05-17] MEDS: SODIUM CHLORIDE 0.45% 1,000 ML IV SCH ×2 (17:48→17:49)
[2021-05-17] MEDS: ZOLPIDEM TARTRATE 5 MG TABLET PO PRN (21:59)
[2021-05-17] MEDS: ATORVASTATIN CA 20 MG TABLET (FP) PO SCH (22:00)
[2021-05-18] MEDS ORDERED: DEXTROSE 5%-WATER - 50 ML IVPB ONE ×2 (09:44→17:06)
[2021-05-18] MEDS ORDERED: PIPERACILLIN/TAZOBACTAM 3.375 GM VIAL IVPB ONE ×2 (09:44→17:06)
[2021-05-18] MEDS ORDERED: PT OWN MED DRAWER 7, Y5N ONE (09:44)
[2021-05-18] MEDS: predniSONE 20 MG TABLET (UD) PO SCH (09:51)
[2021-05-18] MEDS: METOPROLOL TARTRATE 50 MG TABLET (FP) PO SCH (09:51)
[2021-05-18] MEDS: FLUTICASONE/SALMETEROL 100 MCG/50 MCG DISKUS IH SCH ×2 (09:51→21:30)
[2021-05-18] MEDS: ASPIRIN COATED 81 MG TABLET.EC PO SCH (09:51)
[2021-05-18] MEDS: PIPERACILLIN/TAZOB 3.375 GM 3.375 GM in DEXTROSE 5%-WATER - 50 ML IVPB SCH ×2 (09:52→17:41)
[2021-05-18] MEDS: SODIUM ZIRCONIUM CYCLOSILICATE (LOKELMA) 5 GM PACKET PO SCH (09:52)
[2021-05-18] MEDS: PANTOPRAZOLE 20 MG TABLET PO SCH (09:52)
[2021-05-18] MEDS: SODIUM CHLORIDE 0.45% 1,000 ML IV SCH (11:42)
[2021-05-18] MEDS: ATORVASTATIN CA 20 MG TABLET (FP) PO SCH (21:29)
[2021-05-18] MEDS: ZOLPIDEM TARTRATE 5 MG TABLET PO PRN (21:30)
[2021-05-19] MEDS: PIPERACILLIN/TAZOB 3.375 GM 3.375 GM in DEXTROSE 5%-WATER - 50 ML IVPB SCH ×3 (03:00→18:49)
[2021-05-19] MEDS ORDERED: DEXTROSE 5%-WATER - 50 ML IVPB ONE ×3 (03:21→18:41)
[2021-05-19] MEDS ORDERED: PIPERACILLIN/TAZOBACTAM 3.375 GM VIAL IVPB ONE ×3 (03:21→18:41)
[2021-05-19 08:09] LABS: ALBUMIN 1.7 g/dl (3.4-5.0)
[2021-05-19 08:10] LABS: BLOOD UREA NITROGEN 44.2 mg/dL (7-18)
[2021-05-19 08:12] LABS: CREATININE 1.7 mg/dL (0.55-1.3)
[2021-05-19 08:14] LABS: BILIRUBIN,TOTAL 0.3 mg/dL (0.2-1); TOT PROT 4.6 g/dl (6.4-8.2)
[2021-05-19] MEDS ORDERED: PT OWN MED DRAWER 7, Y5N ONE (10:20)
[2021-05-19] MEDS: ASPIRIN COATED 81 MG TABLET.EC PO SCH (10:30)
[2021-05-19] MEDS: SODIUM CHLORIDE 0.45% 1,000 ML IV SCH ×2 (10:31→18:49)
[2021-05-19] MEDS: predniSONE 20 MG TABLET (UD) PO SCH (10:31)
[2021-05-19] MEDS: PANTOPRAZOLE 20 MG TABLET PO SCH (10:31)
[2021-05-19] MEDS: METOPROLOL TARTRATE 50 MG TABLET (FP) PO SCH (10:31)
[2021-05-19] MEDS: FLUTICASONE/SALMETEROL 100 MCG/50 MCG DISKUS IH SCH ×2 (10:33→22:00)
[2021-05-19] MEDS: ZOLPIDEM TARTRATE 5 MG TABLET PO PRN (22:03)
[2021-05-19] MEDS: ATORVASTATIN CA 20 MG TABLET (FP) PO SCH (22:03)
[2021-05-20] MEDS ORDERED: PIPERACILLIN/TAZOBACTAM 3.375 GM VIAL IVPB ONE ×3 (02:39→17:56)
[2021-05-20] MEDS ORDERED: DEXTROSE 5%-WATER - 50 ML IVPB ONE ×3 (02:40→17:56)
[2021-05-20] MEDS: PIPERACILLIN/TAZOB 3.375 GM 3.375 GM in DEXTROSE 5%-WATER - 50 ML IVPB SCH ×3 (02:50→18:28)
[2021-05-20] MEDS: ACETAMINOPHEN 325 MG TABLET (FP) PO PRN (08:17)
[2021-05-20] MEDS: ASPIRIN COATED 81 MG TABLET.EC PO SCH (10:37)
[2021-05-20] MEDS: PANTOPRAZOLE 20 MG TABLET PO SCH (10:38)
[2021-05-20] MEDS: METOPROLOL TARTRATE 50 MG TABLET (FP) PO SCH (10:38)
[2021-05-20] MEDS: predniSONE 20 MG TABLET (UD) PO SCH (10:38)
[2021-05-20] MEDS: FLUTICASONE/SALMETEROL 100 MCG/50 MCG DISKUS IH SCH ×2 (10:39→21:08)
[2021-05-20] MEDS: SODIUM CHLORIDE 0.45% 1,000 ML IV SCH (18:28)
[2021-05-20] MEDS: ATORVASTATIN CA 20 MG TABLET (FP) PO SCH (21:08)
[2021-05-20] MEDS: ZOLPIDEM TARTRATE 5 MG TABLET PO PRN (21:08)
[2021-05-21] MEDS ORDERED: PIPERACILLIN/TAZOBACTAM 3.375 GM VIAL IVPB ONE ×3 (01:03→17:20)
[2021-05-21] MEDS ORDERED: DEXTROSE 5%-WATER - 50 ML IVPB ONE ×3 (01:03→17:20)
[2021-05-21] MEDS: PIPERACILLIN/TAZOB 3.375 GM 3.375 GM in DEXTROSE 5%-WATER - 50 ML IVPB SCH ×3 (01:07→17:36)
[2021-05-21] MEDS: SODIUM CHLORIDE 0.45% 1,000 ML IV SCH ×2 (05:22→17:36)
[2021-05-21 10:26] LABS: HEMATOCRIT 28.6 % (32.4-45.2); HEMOGLOBIN 9.6 GM/dL (10.7-15.3); MCH 29.3 pg (25.7-33.7); MCHC 33.6 g/dl (32.0-36.0); MEAN CELL VOLUME 87.2 fl (80-96); MEAN PLT VOLUME 8.5 fl (7.5-11.1); PLATELET COUNT 353 10^3/uL (134-434); RBC 3.28 M/mm3 (3.60-5.2); RDW 16.2 % (11.6-15.6); WHITE BLOOD COUNT 13.1 K/mm3 (4.0-10.0)
[2021-05-21 11:06] LABS: ALBUMIN 1.9 g/dl (3.4-5.0); BLOOD UREA NITROGEN 29.2 mg/dL (7-18)
[2021-05-21 11:08] LABS: CREATININE 1.6 mg/dL (0.55-1.3)
[2021-05-21 11:10] LABS: TOT PROT 5.1 g/dl (6.4-8.2)
[2021-05-21 11:11] LABS: BILIRUBIN,TOTAL 0.4 mg/dL (0.2-1)
[2021-05-21] MEDS: PANTOPRAZOLE 20 MG TABLET PO SCH (11:17)
[2021-05-21] MEDS: METOPROLOL TARTRATE 50 MG TABLET (FP) PO SCH (11:17)
[2021-05-21] MEDS: ASPIRIN COATED 81 MG TABLET.EC PO SCH (11:17)
[2021-05-21] MEDS: predniSONE 20 MG TABLET (UD) PO SCH (11:18)
[2021-05-21] MEDS: FLUTICASONE/SALMETEROL 100 MCG/50 MCG DISKUS IH SCH ×2 (11:20→20:59)
[2021-05-21] MEDS ORDERED: INSULIN (NOVOLOG) ASPART 100 UNITS/ML 10ML VIAL ONE (20:47)
[2021-05-21] MEDS: ATORVASTATIN CA 20 MG TABLET (FP) PO SCH (20:59)
[2021-05-21] MEDS: ZOLPIDEM TARTRATE 5 MG TABLET PO PRN (20:59)
[2021-05-22] MEDS ORDERED: PIPERACILLIN/TAZOBACTAM 3.375 GM VIAL IVPB ONE ×2 (00:25→09:20)
[2021-05-22] MEDS ORDERED: DEXTROSE 5%-WATER - 50 ML IVPB ONE ×2 (00:25→09:20)
[2021-05-22] MEDS: PIPERACILLIN/TAZOB 3.375 GM 3.375 GM in DEXTROSE 5%-WATER - 50 ML IVPB SCH ×2 (01:04→10:09)
[2021-05-22] MEDS: SODIUM CHLORIDE 0.45% 1,000 ML IV SCH (06:03)
[2021-05-22] MEDS: predniSONE 20 MG TABLET (UD) PO SCH (10:09)
[2021-05-22] MEDS: ASPIRIN COATED 81 MG TABLET.EC PO SCH (10:09)
[2021-05-22] MEDS: PANTOPRAZOLE 20 MG TABLET PO SCH (10:09)
[2021-05-22] MEDS: METOPROLOL TARTRATE 50 MG TABLET (FP) PO SCH (10:09)
[2021-05-22] MEDS: FLUTICASONE/SALMETEROL 100 MCG/50 MCG DISKUS IH SCH ×2 (10:10→21:46)
[2021-05-22] MEDS ORDERED: PT OWN MED DRAWER 7, Y5N ONE (14:59)
[2021-05-22] MEDS: CEFEPIME 2 GM in DEXTROSE 5%-WATER 2 GM/100 ML BAG IVPB SCH ×2 (15:02→21:46)
[2021-05-22] MEDS: ZOLPIDEM TARTRATE 5 MG TABLET PO PRN (21:46)
[2021-05-22] MEDS: ATORVASTATIN CA 20 MG TABLET (FP) PO SCH (21:46)
[2021-05-23] MEDS ORDERED: PT OWN MED DRAWER 7, Y5N ONE (09:24)
[2021-05-23] MEDS: PANTOPRAZOLE 20 MG TABLET PO SCH (09:27)
[2021-05-23] MEDS: ASPIRIN COATED 81 MG TABLET.EC PO SCH (09:27)
[2021-05-23] MEDS: METOPROLOL TARTRATE 50 MG TABLET (FP) PO SCH (09:27)
[2021-05-23] MEDS: predniSONE 20 MG TABLET (UD) PO SCH (09:27)
[2021-05-23] MEDS: FLUTICASONE/SALMETEROL 100 MCG/50 MCG DISKUS IH SCH (09:28)
[2021-05-23] MEDS: CEFEPIME 2 GM in DEXTROSE 5%-WATER 2 GM/100 ML BAG IVPB SCH (09:28)
[2021-05-23 10:41] VITALS: BP 142/77; PULSE 92; TEMP 98.3
== END 2021-05-23 11:47 | disposition home health service (06) | DRG 178 ==
LOC: JER 01:37 → JERBED 05:15 → J5S 11:29 → J8W 11:31
PROVIDERS: ATTEND Internal Medicine
PROC: 02HV33Z Insertion of Infusion Device into Superior Vena Cava, Percutaneous Approach (ICD-10-PCS; principal; 2021-05-22)
PROC: B548ZZA Ultrasonography of Superior Vena Cava, Guidance (ICD-10-PCS; 2021-05-22)
DX: J15.1 Pneumonia due to Pseudomonas (principal); J98.11 Atelectasis; N17.9 Acute kidney failure, unspecified; J96.11 Chronic respiratory failure with hypoxia; Z99.81 Dependence on supplemental oxygen; I10 Essential (primary) hypertension; E78.5 Hyperlipidemia, unspecified; D72.829 Elevated white blood cell count, unspecified; J43.9 Emphysema, unspecified; J98.4 Other disorders of lung; J47.9 Bronchiectasis, uncomplicated; E87.5 Hyperkalemia
CPT/HCPCS: 36415; 36558; 71045-TC-FY; 71046-TC-FY; 71250-TC; 76775-TC; 77001-TC-FY; 80048; 80053; 81003; 82436; 82570; 83605; 83735; 84133; 84300; 84484; 85025; 85027; 85610; 85730; 86140; 86480; 87040; 87070; 87081; 87086; 87116; 87186; 87205; 87206; 87305; 87556; 87899; 88104; 93005; 93010; 97116-GP; 97161-GP; 99285-25; C1751; C9803; G0480; J0131; J1644; J3480; U0003; U0005

== ENCOUNTER 2021-06-09 21:23 | Inpatient (IN) | payer OTHER ==
[2021-06-09] MEDS ORDERED: SODIUM CHLORIDE 0.9% 500 ML INFUS.BAG IV ONE (22:10)
[2021-06-09 22:27] LABS: HEMATOCRIT 32.7 % (32.4-45.2); HEMOGLOBIN 10.7 GM/dL (10.7-15.3); MCH 28.6 pg (25.7-33.7); MCHC 32.9 g/dl (32.0-36.0); MEAN PLT VOLUME 8.3 fl (7.5-11.1); PLATELET COUNT 223 10^3/uL (134-434); RBC 3.76 M/mm3 (3.60-5.2); RDW 16.5 % (11.6-15.6); WHITE BLOOD COUNT 7.1 K/mm3 (4.0-10.0)
[2021-06-09] MEDS ORDERED: ACETAMINOPHEN 1000 MG/100 ML BAG IVPB ONE (22:35)
[2021-06-09 22:37] LABS: VENOUS BASE EXCESS -3.2 mmol/L (-2-2); VENOUS O2 SATURATION 87.3 % (70-80); VENOUS PCO2 33.4 mmHg (38-52); VENOUS PH 7.41 (7.310-7.410)
[2021-06-09] MEDS ORDERED: ACETAMINOPHEN INJECTION 100 ML IVPB ONE (22:37)
[2021-06-09 22:51] LABS: CHLORIDE 112 mmol/L (98-107); SODIUM 143 mmol/L (136-145)
[2021-06-09 22:53] LABS: CALCIUM 8.4 mg/dL (8.5-10.1); GLUCOSE,RANDOM 105 mg/dL (74-106)
[2021-06-09 22:55] LABS: ALBUMIN 3.2 g/dl (3.4-5.0); ANION GAP 6 MMOL/L (8-16); BLOOD UREA NITROGEN 11.3 mg/dL (7-18); CO2 25 mmol/L (21-32); MAGNESIUM 1.4 mg/dL (1.8-2.4)
[2021-06-09 22:57] LABS: CREATININE 0.7 mg/dL (0.55-1.3); SGOT/AST 14 U/L (15-37); SGPT/ALT 18 U/L (13-61)
[2021-06-09 22:59] LABS: ALK PHOS 130 U/L (45-117); BILIRUBIN,TOTAL 0.4 mg/dL (0.2-1); TOT PROT 6.4 g/dl (6.4-8.2)
[2021-06-09] MEDS ORDERED: MAGNESIUM SULFATE IN WATER 2 GM/50 ML IVPB IVPB ONE (23:23)
[2021-06-09] MEDS ORDERED: ALBUTEROL SO4 2.5/IPRATROPIUM 0.5 INH SOL 3 ML VIAL.NEB. NEB ONE (23:23)
[2021-06-09 23:49] LABS: PLATELET ESTIMATE NORMAL
[2021-06-09] MEDS: ALBUTEROL SO4 2.5/IPRATROPIUM 0.5 INH SOL 3 ML VIAL.NEB. NEB SCH (23:50)
[2021-06-10] MEDS: ALBUTEROL SO4 2.5/IPRATROPIUM 0.5 INH SOL 3 ML VIAL.NEB. NEB SCH ×2 (00:20→01:21)
[2021-06-10] MEDS ORDERED: ONDANSETRON 4 MG/2 ML VIAL IVPUSH ONE (01:03)
[2021-06-10] MEDS ORDERED: ONDANSETRON 4 MG/2 ML VIAL ONE (02:23)
[2021-06-10] MEDS ORDERED: POLYETHYLENE GLYCOL (HEALTHYLAX) 3350 17 GM PACKET PO PRN (05:49)
[2021-06-10] MEDS ORDERED: ACETAMINOPHEN 325 MG TABLET (FP) PO PRN (05:49)
[2021-06-10] MEDS ORDERED: ZOLPIDEM TARTRATE 5 MG TABLET PO PRN (06:09)
[2021-06-10] MEDS ORDERED: PATIENT'S OWN MEDICATION (NON-FORMULARY) (Zolpidem Tartrate [Ambien] 10 MG Tablet) PO PRN (06:09)
[2021-06-10] MEDS ORDERED: ALBUTEROL SO4 HFA INHALER IH PRN (06:09)
[2021-06-10] MEDS: DEXAMETHASONE SOD PHOSPHATE 4 MG/1 ML VIAL IVPUSH SCH ×2 (06:22→10:31)
[2021-06-10] MEDS ORDERED: CEFEPIME 2 GM in DEXTROSE 5%-WATER 100 ML IVPB SCH ×2 (06:30→10:00)
[2021-06-10] MEDS: INSULIN SLIDING SCALE (NOVOLOG) 1 VIAL SQ SCH ×4 (08:09→21:17)
[2021-06-10] MEDS ORDERED: ONDANSETRON 4 MG/2 ML VIAL IVPUSH PRN (08:11)
[2021-06-10] MEDS ORDERED: CEFEPIME 2 GM IVPB SCH (10:00)
[2021-06-10] MEDS ORDERED: ASCORBIC ACID 500 MG TABLET (FP) ONE (10:08)
[2021-06-10] MEDS ORDERED: ASPIRIN COATED 81 MG TABLET.EC ONE (10:08)
[2021-06-10] MEDS ORDERED: DEXAMETHASONE SOD PHOSPHATE 10 MG/1 ML VIAL ONE (10:09)
[2021-06-10] MEDS ORDERED: CHOLECALCIFEROL (VIT D3) 1,000 UNIT (25 MCG) TABLET ONE (10:09)
[2021-06-10] MEDS ORDERED: ZINC SULFATE 220 MG CAPSULE (FP) ONE (10:09)
[2021-06-10] MEDS ORDERED: METOPROLOL TARTRATE 50 MG TABLET (FP) ONE (10:09)
[2021-06-10] MEDS ORDERED: ENOXAPARIN NA (PORCINE) 40 MG/0.4 ML DISP.SYRIN SQ ONE (10:09)
[2021-06-10] MEDS ORDERED: PANTOPRAZOLE 20 MG TABLET PO ONE (10:09)
[2021-06-10] MEDS ORDERED: CEFEPIME 2 GM/100 ML BAG IVPB ONE (10:10)
[2021-06-10] MEDS ORDERED: ALBUTEROL SO4 HFA INHALER IH ONE (10:30)
[2021-06-10] MEDS ORDERED: ACETAMINOPHEN 325 MG TABLET (FP) ONE (10:30)
[2021-06-10] MEDS: PANTOPRAZOLE 20 MG TABLET PO SCH (10:32)
[2021-06-10] MEDS: ASPIRIN COATED 81 MG TABLET.EC PO SCH (10:32)
[2021-06-10] MEDS: ASCORBIC ACID 500 MG TABLET (FP) PO SCH (10:32)
[2021-06-10] MEDS: ENOXAPARIN NA (PORCINE) 40 MG/0.4 ML DISP.SYRIN SQ SCH (10:32)
[2021-06-10] MEDS: METOPROLOL TARTRATE 50 MG TABLET (FP) PO SCH (10:32)
[2021-06-10] MEDS: ZINC SULFATE 220 MG CAPSULE (FP) PO SCH (10:32)
[2021-06-10] MEDS: CHOLECALCIFEROL (VIT D3) 1,000 UNIT (25 MCG) TABLET PO SCH (10:33)
[2021-06-10 11:10] LABS: HEMATOCRIT 34.3 % (32.4-45.2); HEMOGLOBIN 11.1 GM/dL (10.7-15.3); MCH 28.5 pg (25.7-33.7); MCHC 32.2 g/dl (32.0-36.0); MEAN CELL VOLUME 88.3 fl (80-96); MEAN PLT VOLUME 8.2 fl (7.5-11.1); PLATELET COUNT 226 10^3/uL (134-434); RBC 3.88 M/mm3 (3.60-5.2); RDW 16.9 % (11.6-15.6); WHITE BLOOD COUNT 5.4 K/mm3 (4.0-10.0)
[2021-06-10 11:14] LABS: INR 1.16 (0.83-1.09); PROTHROMBIN TIME (PATIENT) 13.6 SEC (9.7-13.0)
[2021-06-10 11:26] LABS: MAGNESIUM 2.1 mg/dL (1.8-2.4)
[2021-06-10 11:46] LABS: ANISOCYTOSIS 1+; MACROCYTOSIS 0; PLATELET ESTIMATE NORMAL
[2021-06-10] MEDS: LACTOBACILLUS ACIDOPHILUS 1 TABLET PO SCH (11:53)
[2021-06-10] MEDS: FLUTICASONE/SALMETEROL 100 MCG/50 MCG DISKUS IH SCH ×2 (11:53→21:17)
[2021-06-10] MEDS ORDERED: REMDESIVIR 200 MG in SODIUM CHLORIDE 250 ML IVPB ONE (14:00)
[2021-06-10 15:51] VITALS: BMI 26.6
[2021-06-10] MEDS: ATORVASTATIN CA 20 MG TABLET (FP) PO SCH (21:17)
[2021-06-11] MEDS: INSULIN SLIDING SCALE (NOVOLOG) 1 VIAL SQ SCH ×4 (06:40→21:19)
[2021-06-11] MEDS: guaiFENesin/D-METHORPHAN HB 10 ML UNIT-DOSE CUPS PO PRN (10:11)
[2021-06-11] MEDS: DEXAMETHASONE SOD PHOSPHATE 4 MG/1 ML VIAL IVPUSH SCH (10:12)
[2021-06-11] MEDS: ASPIRIN COATED 81 MG TABLET.EC PO SCH (10:14)
[2021-06-11] MEDS: LACTOBACILLUS ACIDOPHILUS 1 TABLET PO SCH (10:14)
[2021-06-11] MEDS: ZINC SULFATE 220 MG CAPSULE (FP) PO SCH (10:14)
[2021-06-11] MEDS: CHOLECALCIFEROL (VIT D3) 1,000 UNIT (25 MCG) TABLET PO SCH (10:14)
[2021-06-11] MEDS: ASCORBIC ACID 500 MG TABLET (FP) PO SCH (10:14)
[2021-06-11] MEDS: PANTOPRAZOLE 20 MG TABLET PO SCH (10:14)
[2021-06-11] MEDS: FLUTICASONE/SALMETEROL 100 MCG/50 MCG DISKUS IH SCH ×2 (10:14→21:19)
[2021-06-11] MEDS: ENOXAPARIN NA (PORCINE) 40 MG/0.4 ML DISP.SYRIN SQ SCH (10:14)
[2021-06-11] MEDS: METOPROLOL TARTRATE 50 MG TABLET (FP) PO SCH (10:14)
[2021-06-11 10:26] LABS: BASO % 0.3 % (0-2.0); HEMATOCRIT 33.1 % (32.4-45.2); HEMOGLOBIN 10.8 GM/dL (10.7-15.3); LYMPH % 15.9 % (8-40); MCH 28.5 pg (25.7-33.7); MCHC 32.7 g/dl (32.0-36.0); MEAN CELL VOLUME 87.2 fl (80-96); MEAN PLT VOLUME 8.1 fl (7.5-11.1); MONO % 8.4 % (3.8-10.2); NEUT % 75.4 % (42.8-82.8); PLATELET COUNT 258 10^3/uL (134-434); RBC 3.79 M/mm3 (3.60-5.2); RDW 16.6 % (11.6-15.6); WHITE BLOOD COUNT 5.1 K/mm3 (4.0-10.0)
[2021-06-11 10:47] LABS: CALCIUM 8.4 mg/dL (8.5-10.1)
[2021-06-11 10:48] LABS: BLOOD UREA NITROGEN 18.6 mg/dL (7-18)
[2021-06-11 10:51] LABS: CREATININE 0.8 mg/dL (0.55-1.3)
[2021-06-11 10:52] LABS: BILIRUBIN,TOTAL 0.5 mg/dL (0.2-1); TOT PROT 6.3 g/dl (6.4-8.2)
[2021-06-11] MEDS: REMDESIVIR 100 MG in SODIUM CHLORIDE 250 ML IVPB SCH (14:04)
[2021-06-11] MEDS: ATORVASTATIN CA 20 MG TABLET (FP) PO SCH (21:12)
[2021-06-11] MEDS: ZOLPIDEM TARTRATE 5 MG TABLET PO PRN (23:00)
[2021-06-12] MEDS: INSULIN SLIDING SCALE (NOVOLOG) 1 VIAL SQ SCH ×2 (06:42→11:41)
[2021-06-12] MEDS ORDERED: PT OWN MED DRAWER 7, Y5N ONE ×2 (09:58→22:00)
[2021-06-12] MEDS: DEXAMETHASONE SOD PHOSPHATE 4 MG/1 ML VIAL IVPUSH SCH (10:02)
[2021-06-12] MEDS: ASCORBIC ACID 500 MG TABLET (FP) PO SCH (10:03)
[2021-06-12] MEDS: ENOXAPARIN NA (PORCINE) 40 MG/0.4 ML DISP.SYRIN SQ SCH (10:04)
[2021-06-12] MEDS: METOPROLOL TARTRATE 50 MG TABLET (FP) PO SCH (10:04)
[2021-06-12] MEDS: FLUTICASONE/SALMETEROL 100 MCG/50 MCG DISKUS IH SCH ×2 (10:04→22:04)
[2021-06-12] MEDS: ZINC SULFATE 220 MG CAPSULE (FP) PO SCH (10:04)
[2021-06-12] MEDS: CHOLECALCIFEROL (VIT D3) 1,000 UNIT (25 MCG) TABLET PO SCH (10:04)
[2021-06-12] MEDS: PANTOPRAZOLE 20 MG TABLET PO SCH (10:04)
[2021-06-12] MEDS: LACTOBACILLUS ACIDOPHILUS 1 TABLET PO SCH (10:04)
[2021-06-12] MEDS: guaiFENesin/D-METHORPHAN HB 10 ML UNIT-DOSE CUPS PO PRN (10:04)
[2021-06-12] MEDS: ASPIRIN COATED 81 MG TABLET.EC PO SCH (10:04)
[2021-06-12] MEDS: REMDESIVIR 100 MG in SODIUM CHLORIDE 250 ML IVPB SCH (14:18)
[2021-06-12] MEDS: ATORVASTATIN CA 20 MG TABLET (FP) PO SCH (22:04)
[2021-06-12] MEDS: ZOLPIDEM TARTRATE 5 MG TABLET PO PRN (22:05)
[2021-06-13] MEDS ORDERED: PT OWN MED DRAWER 7, Y5N ONE (09:42)
[2021-06-13] MEDS: ENOXAPARIN NA (PORCINE) 40 MG/0.4 ML DISP.SYRIN SQ SCH (09:46)
[2021-06-13] MEDS: guaiFENesin/D-METHORPHAN HB 10 ML UNIT-DOSE CUPS PO PRN (09:46)
[2021-06-13] MEDS: DEXAMETHASONE SOD PHOSPHATE 4 MG/1 ML VIAL IVPUSH SCH (09:47)
[2021-06-13] MEDS: ZINC SULFATE 220 MG CAPSULE (FP) PO SCH (09:49)
[2021-06-13] MEDS: METOPROLOL TARTRATE 50 MG TABLET (FP) PO SCH (09:49)
[2021-06-13] MEDS: ASPIRIN COATED 81 MG TABLET.EC PO SCH (09:49)
[2021-06-13] MEDS: LACTOBACILLUS ACIDOPHILUS 1 TABLET PO SCH (09:49)
[2021-06-13] MEDS: CHOLECALCIFEROL (VIT D3) 1,000 UNIT (25 MCG) TABLET PO SCH (09:49)
[2021-06-13] MEDS: PANTOPRAZOLE 20 MG TABLET PO SCH (09:49)
[2021-06-13] MEDS: ASCORBIC ACID 500 MG TABLET (FP) PO SCH (09:50)
[2021-06-13] MEDS: FLUTICASONE/SALMETEROL 100 MCG/50 MCG DISKUS IH SCH ×2 (09:50→21:34)
[2021-06-13] MEDS: REMDESIVIR 100 MG in SODIUM CHLORIDE 250 ML IVPB SCH ×2 (12:45→15:13)
[2021-06-13 13:17] LABS: HEMATOCRIT 33.5 % (32.4-45.2); MCH 28.4 pg (25.7-33.7); MCHC 32.8 g/dl (32.0-36.0); MEAN CELL VOLUME 86.6 fl (80-96); MEAN PLT VOLUME 9.1 fl (7.5-11.1); PLATELET COUNT 287 10^3/uL (134-434); RBC 3.86 M/mm3 (3.60-5.2); RDW 16.8 % (11.6-15.6); WHITE BLOOD COUNT 6.9 K/mm3 (4.0-10.0)
[2021-06-13 13:37] LABS: ALBUMIN 2.8 g/dl (3.4-5.0); CALCIUM 8.2 mg/dL (8.5-10.1)
[2021-06-13 13:40] LABS: CREATININE 0.6 mg/dL (0.55-1.3)
[2021-06-13 13:42] LABS: BILIRUBIN,TOTAL 0.3 mg/dL (0.2-1)
[2021-06-13] MEDS: ATORVASTATIN CA 20 MG TABLET (FP) PO SCH (21:35)
[2021-06-13] MEDS: ZOLPIDEM TARTRATE 5 MG TABLET PO PRN (21:35)
[2021-06-14 10:26] VITALS: BP 155/82; PULSE 76; TEMP 98
[2021-06-14] MEDS: REMDESIVIR 100 MG in SODIUM CHLORIDE 250 ML IVPB SCH (10:26)
[2021-06-14] MEDS: PANTOPRAZOLE 20 MG TABLET PO SCH (10:27)
[2021-06-14] MEDS: CHOLECALCIFEROL (VIT D3) 1,000 UNIT (25 MCG) TABLET PO SCH (10:27)
[2021-06-14] MEDS: ENOXAPARIN NA (PORCINE) 40 MG/0.4 ML DISP.SYRIN SQ SCH (10:27)
[2021-06-14] MEDS: FLUTICASONE/SALMETEROL 100 MCG/50 MCG DISKUS IH SCH (10:28)
[2021-06-14] MEDS: ZINC SULFATE 220 MG CAPSULE (FP) PO SCH (10:28)
[2021-06-14] MEDS: DEXAMETHASONE SOD PHOSPHATE 4 MG/1 ML VIAL IVPUSH SCH (10:28)
[2021-06-14] MEDS: METOPROLOL TARTRATE 50 MG TABLET (FP) PO SCH (10:28)
[2021-06-14] MEDS: LACTOBACILLUS ACIDOPHILUS 1 TABLET PO SCH (10:28)
[2021-06-14] MEDS: ASCORBIC ACID 500 MG TABLET (FP) PO SCH (10:28)
[2021-06-14] MEDS: guaiFENesin/D-METHORPHAN HB 10 ML UNIT-DOSE CUPS PO PRN (10:28)
[2021-06-14] MEDS: ASPIRIN COATED 81 MG TABLET.EC PO SCH (10:28)
== END 2021-06-14 13:47 | disposition home or self-care (01) | DRG 177 ==
LOC: JER 21:23 → JERBED 22:05 → J5S 06-10 15:16
PROVIDERS: ADMIT Internal Medicine; ATTEND Internal Medicine
PROC: XW033E5 Introduction of Remdesivir Anti-infective into Peripheral Vein, Percutaneous Approach, New Technology Group 5 (ICD-10-PCS; principal; 2021-06-10)
DX: U07.1 COVID-19 (principal); J12.82 Pneumonia due to coronavirus disease 2019; J96.21 Acute and chronic respiratory failure with hypoxia; A31.0 Pulmonary mycobacterial infection; J44.9 Chronic obstructive pulmonary disease, unspecified; E78.5 Hyperlipidemia, unspecified; I10 Essential (primary) hypertension; J98.4 Other disorders of lung; K21.9 Gastro-esophageal reflux disease without esophagitis; E11.9 Type 2 diabetes mellitus without complications; R50.9 Fever, unspecified
CPT/HCPCS: 36415; 36589; 71275-TC; 80053; 82550; 82728; 82803; 82962; 83735; 84484; 85025; 85027; 85379; 85384; 85610; 85730; 86140; 87804; 87807; 93005; 93010; 99285-25; C9399; C9803; J0131; Q9967; U0003; U0005

== ENCOUNTER 2021-09-30 21:55 | Inpatient (IN) | payer OTHER ==
[2021-09-30] MEDS ORDERED: ONDANSETRON 4 MG/2 ML VIAL IVPUSH ONE (22:08)
[2021-09-30] MEDS ORDERED: SODIUM CHLORIDE 0.9% 500 ML INFUS.BAG IV ONE (22:08)
[2021-09-30] MEDS ORDERED: ACETAMINOPHEN 1000 MG/100 ML BAG IVPB ONE (22:13)
[2021-09-30 22:36] VITALS: BMI 27.4
[2021-09-30] MEDS ORDERED: ACETAMINOPHEN INJECTION 100 ML IVPB ONE (22:41)
[2021-09-30] MEDS ORDERED: ONDANSETRON 4 MG/2 ML VIAL ONE (22:41)
[2021-09-30 23:11] LABS: BASO % 0.5 % (0-2.0); EOS % 1.3 % (0-4.5); HEMATOCRIT 45.7 % (32.4-45.2); HEMOGLOBIN 15.3 GM/dL (10.7-15.3); LYMPH % 15.9 % (8-40); MCH 29.2 pg (25.7-33.7); MCHC 33.5 g/dl (32.0-36.0); MEAN CELL VOLUME 87.3 fl (80-96); MEAN PLT VOLUME 8.5 fl (7.5-11.1); MONO % 6.5 % (3.8-10.2); NEUT % 75.8 % (42.8-82.8); PLATELET COUNT 278 10^3/uL (134-434); RBC 5.23 M/mm3 (3.60-5.2); RDW 14.4 % (11.6-15.6); WHITE BLOOD COUNT 8.6 K/mm3 (4.0-10.0)
[2021-09-30 23:33] LABS: ALBUMIN 3.8 g/dl (3.4-5.0); BLOOD UREA NITROGEN 24.5 mg/dL (7-18)
[2021-09-30 23:36] LABS: CREATININE 1.6 mg/dL (0.55-1.3)
[2021-09-30 23:38] LABS: BILIRUBIN,TOTAL 0.5 mg/dL (0.2-1); TOT PROT 7.3 g/dl (6.4-8.2)
[2021-09-30 23:41] LABS: LACTIC ACID 2.2 mmol/L (0.4-2.0)
[2021-09-30] MEDS ORDERED: LACTATED RINGERS SOLUTION 1000 ML INFUS.BAG IV ONE (23:56)
[2021-10-01] LABS: URINE APPEARANCE CLEAR; URINE BILIRUBIN 1+ (NEGATIVE); URINE COLOR DK YELLOW; URINE GLUCOSE (UA) NEGATIVE (NEGATIVE); URINE KETONE TRACE (NEGATIVE); URINE LEUK ESTERASE NEGATIVE (NEGATIVE); URINE NITRITE NEGATIVE (NEGATIVE); URINE PROTEIN TRACE (NEGATIVE)
[2021-10-01] MEDS ORDERED: SODIUM CHLORIDE 1,000 ML IV SCH ×2 (01:45→12:45)
[2021-10-01 02:07] LABS: LACTIC ACID 6.9 mmol/L (0.4-2.0)
[2021-10-01] MEDS ORDERED: SODIUM CHLORIDE 1,000 ML IV STA (02:12)
[2021-10-01 02:45] LABS: BASO % 0.3 % (0-2.0); EOS % 0.6 % (0-4.5); HEMATOCRIT 36.6 % (32.4-45.2); HEMOGLOBIN 12.2 GM/dL (10.7-15.3); LYMPH % 16.7 % (8-40); MCH 29.2 pg (25.7-33.7); MCHC 33.4 g/dl (32.0-36.0); MEAN CELL VOLUME 87.3 fl (80-96); MEAN PLT VOLUME 8.1 fl (7.5-11.1); MONO % 5.8 % (3.8-10.2); NEUT % 76.6 % (42.8-82.8); PLATELET COUNT 226 10^3/uL (134-434); RBC 4.19 M/mm3 (3.60-5.2); RDW 14.4 % (11.6-15.6); WHITE BLOOD COUNT 7.1 K/mm3 (4.0-10.0)
[2021-10-01 03:05] LABS: BLOOD UREA NITROGEN 21.1 mg/dL (7-18); CALCIUM 7.7 mg/dL (8.5-10.1)
[2021-10-01] MEDS ORDERED: PIPERACILLIN/TAZOB 3.375 GM 3.375 GM in DEXTROSE 5%-WATER - 50 ML IVPB ONE (03:06)
[2021-10-01 03:08] LABS: CREATININE 1.1 mg/dL (0.55-1.3)
[2021-10-01 03:10] LABS: BILIRUBIN,TOTAL 0.2 mg/dL (0.2-1)
[2021-10-01] MEDS ORDERED: PIPERACILLIN/TAZOB 3.375 GM 3.375 GM/50 ML BAG IVPB ONE (04:12)
[2021-10-01] MEDS ORDERED: VANCOMYCIN 1 GRAM (PRE-DOCKED) 1,000 MG/250 ML BAG IVPB ONE ×2 (04:30→05:12)
[2021-10-01 04:49] LABS: ALBUMIN 2.7 g/dl (3.4-5.0); TOT PROT 5.2 g/dl (6.4-8.2)
[2021-10-01] MEDS ORDERED: ALBUTEROL SO4 0.083% IH SOL 2.5 MG/3 ML VIAL.NEB. NEB PRN (05:35)
[2021-10-01 06:06] LABS: BASO % 0.4 % (0-2.0); EOS % 0.9 % (0-4.5); HEMOGLOBIN 11.5 GM/dL (10.7-15.3); LYMPH % 27.1 % (8-40); MCH 29.1 pg (25.7-33.7); MCHC 32.8 g/dl (32.0-36.0); MEAN CELL VOLUME 88.9 fl (80-96); MEAN PLT VOLUME 8.5 fl (7.5-11.1); MONO % 10.1 % (3.8-10.2); NEUT % 61.5 % (42.8-82.8); PLATELET COUNT 209 10^3/uL (134-434); RBC 3.93 M/mm3 (3.60-5.2); RDW 13.7 % (11.6-15.6); WHITE BLOOD COUNT 6.1 K/mm3 (4.0-10.0)
[2021-10-01 06:28] LABS: ALBUMIN 2.4 g/dl (3.4-5.0); CALCIUM 7.5 mg/dL (8.5-10.1); MAGNESIUM 1.8 mg/dL (1.8-2.4)
[2021-10-01 06:29] LABS: BLOOD UREA NITROGEN 20.7 mg/dL (7-18)
[2021-10-01 06:31] LABS: CREATININE 1.1 mg/dL (0.55-1.3)
[2021-10-01 06:33] LABS: BILIRUBIN,TOTAL 0.3 mg/dL (0.2-1); TOT PROT 4.8 g/dl (6.4-8.2)
[2021-10-01] MEDS: HEPARIN NA (PORCINE) 5,000 UNITS/ML 1ML VIAL SQ SCH ×2 (10:40→21:59)
[2021-10-01] MEDS: PANTOPRAZOLE SODIUM 40 MG VIAL IVPUSH SCH (10:40)
[2021-10-01] MEDS: ASPIRIN 81 MG CHEWABLE TABLETS PO SCH (10:41)
[2021-10-01] MEDS: BUDESONIDE/FORMETEROL FUMARATE 160/4.5 mcg INHALER IH SCH ×2 (13:27→22:00)
[2021-10-01] MEDS: TIOTROPIUM BROMIDE 2.5 MCG (SPIRIVA) RESPIMAT INHALER IH SCH (13:27)
[2021-10-01] MEDS ORDERED: ZOLPIDEM TARTRATE 5 MG TABLET PO ONE (20:43)
[2021-10-01] MEDS ORDERED: ATORVASTATIN CA 20 MG TABLET (FP) PO SCH (22:00)
[2021-10-02 08:06] LABS: CALCIUM 7.7 mg/dL (8.5-10.1)
[2021-10-02 08:07] LABS: BLOOD UREA NITROGEN 11.1 mg/dL (7-18)
[2021-10-02 08:10] LABS: CREATININE 0.7 mg/dL (0.55-1.3)
[2021-10-02 08:55] VITALS: BP 152/83; PULSE 83; TEMP 98.1
[2021-10-02] MEDS: HEPARIN NA (PORCINE) 5,000 UNITS/ML 1ML VIAL SQ SCH (09:01)
[2021-10-02] MEDS: PANTOPRAZOLE SODIUM 40 MG VIAL IVPUSH SCH (09:02)
[2021-10-02] MEDS: TIOTROPIUM BROMIDE 2.5 MCG (SPIRIVA) RESPIMAT INHALER IH SCH (09:04)
[2021-10-02] MEDS: BUDESONIDE/FORMETEROL FUMARATE 160/4.5 mcg INHALER IH SCH (09:04)
[2021-10-02] MEDS: ASPIRIN 81 MG CHEWABLE TABLETS PO SCH (09:04)
== END 2021-10-02 11:21 | disposition home or self-care (01) | DRG 682 ==
LOC: JER 21:55 → JERBED 23:02 → OBSVTOIN 23:02 → J4S 10-01 10:09
PROVIDERS: ADMIT Internal Medicine; ATTEND Internal Medicine
DX: N17.9 Acute kidney failure, unspecified (principal); R57.1 Hypovolemic shock; E87.2 Acidosis; R55 Syncope and collapse; I25.10 Atherosclerotic heart disease of native coronary artery without angina pectoris; I10 Essential (primary) hypertension; E78.5 Hyperlipidemia, unspecified; E86.0 Dehydration; Z99.81 Dependence on supplemental oxygen; Z86.73 Personal history of transient ischemic attack (TIA), and cerebral infarction without residual deficits; J43.9 Emphysema, unspecified; Z86.16 Personal history of COVID-19; E66.9 Obesity, unspecified; K52.9 Noninfective gastroenteritis and colitis, unspecified; Z68.27 Body mass index [BMI] 27.0-27.9, adult
CPT/HCPCS: 36415; 71045-TC-FY; 80048; 80053; 81003; 82272; 82340; 82570; 83605; 83735; 84156; 84300; 84443; 84484; 85025; 87040; 87086; 87186; 87804; 93005; 93010; 93880-TC; 99285-25; C9803-CS; J1644; U0003; U0005

== ENCOUNTER 2022-03-29 20:08 | Inpatient (IN) | payer OTHER ==
[2022-03-29] MEDS ORDERED: LACTATED RINGERS SOLUTION 1000 ML INFUS.BAG IV ONE (22:03)
[2022-03-29] MEDS ORDERED: ACETAMINOPHEN 1000 MG/100 ML BAG IVPB ONE (22:03)
[2022-03-29] MEDS ORDERED: ACETAMINOPHEN INJECTION 100 ML IVPB ONE (22:08)
[2022-03-29 22:13] LABS: BASO % 0.9 % (0-2.0); EOS % 0.8 % (0-4.5); HEMATOCRIT 40.8 % (32.4-45.2); HEMOGLOBIN 13.7 GM/dL (10.7-15.3); LYMPH % 24.6 % (8-40); MCH 29.2 pg (25.7-33.7); MCHC 33.6 g/dl (32.0-36.0); MEAN CELL VOLUME 86.9 fl (80-96); MEAN PLT VOLUME 8.2 fl (7.5-11.1); MONO % 6.9 % (3.8-10.2); NEUT % 66.8 % (42.8-82.8); PLATELET COUNT 304 10^3/uL (134-434); RDW 13.8 % (11.6-15.6); WHITE BLOOD COUNT 9.8 K/mm3 (4.0-10.0)
[2022-03-29 22:25] LABS: CALCIUM 8.7 mg/dL (8.5-10.1)
[2022-03-29 22:26] LABS: ALBUMIN 3.3 g/dl (3.4-5.0); BLOOD UREA NITROGEN 12.9 mg/dL (7-18)
[2022-03-29 22:30] LABS: BILIRUBIN,TOTAL 0.3 mg/dL (0.2-1); TOT PROT 6.6 g/dl (6.4-8.2)
[2022-03-29] MEDS ORDERED: guaiFENesin 200 MG/10 ML 10 ML UNIT-DOSE CUPS PO ONE (22:39)
[2022-03-29] MEDS ORDERED: guaiFENesin 200 MG/10 ML 10 ML UNIT-DOSE CUPS ONE (22:40)
[2022-03-30] MEDS ORDERED: ACETAMINOPHEN 325 MG TABLET (FP) PO PRN ×2 (03:00→08:27)
[2022-03-30] MEDS ORDERED: DEXTROSE 5%-NORMAL SALINE 1,000 ML IV SCH (03:00)
[2022-03-30] MEDS ORDERED: POTASSIUM CHLORIDE TABS 20 MEQ TABLET.ER (FP) PO ONE (03:06)
[2022-03-30] MEDS ORDERED: ALBUTEROL SO4 0.083% IH SOL 2.5 MG/3 ML VIAL.NEB. NEB PRN (04:46)
[2022-03-30] MEDS ORDERED: KETOROLAC TROMETHAMINE 15 MG/ML VIAL IVPUSH ONE (04:58)
[2022-03-30] MEDS ORDERED: PANTOPRAZOLE SODIUM 40 MG VIAL IVPUSH ONE (04:58)
[2022-03-30 06:21] LABS: BASO % 1.3 % (0-2.0); EOS % 1.6 % (0-4.5); HEMATOCRIT 37.3 % (32.4-45.2); HEMOGLOBIN 12.2 GM/dL (10.7-15.3); LYMPH % 28.6 % (8-40); MCH 28.6 pg (25.7-33.7); MCHC 32.7 g/dl (32.0-36.0); MEAN CELL VOLUME 87.5 fl (80-96); MEAN PLT VOLUME 8.4 fl (7.5-11.1); MONO % 7.1 % (3.8-10.2); NEUT % 61.4 % (42.8-82.8); PLATELET COUNT 243 10^3/uL (134-434); RBC 4.26 M/mm3 (3.60-5.2); RDW 13.9 % (11.6-15.6)
[2022-03-30 06:41] LABS: CALCIUM 8.4 mg/dL (8.5-10.1)
[2022-03-30 06:42] LABS: BLOOD UREA NITROGEN 13.2 mg/dL (7-18)
[2022-03-30 06:45] LABS: CREATININE 0.8 mg/dL (0.55-1.3)
[2022-03-30] MEDS ORDERED: ZOLPIDEM TARTRATE 5 MG TABLET PO PRN (08:20)
[2022-03-30 08:45] VITALS: BMI 28.0
[2022-03-30] MEDS: methylPREDNISolone NA SUCC 40 MG/1 ML VIAL IVPUSH SCH ×2 (09:33→18:22)
[2022-03-30] MEDS: ASPIRIN COATED 81 MG TABLET.EC PO SCH (09:34)
[2022-03-30] MEDS: LISINOPRIL 10 MG TABLET PO SCH (09:34)
[2022-03-30] MEDS: ENOXAPARIN NA (PORCINE) 40 MG/0.4 ML DISP.SYRIN SQ SCH (09:34)
[2022-03-30] MEDS ORDERED: TIOTROPIUM BROMIDE 2.5 MCG (SPIRIVA) RESPIMAT INHALER IH SCH (10:00)
[2022-03-30] MEDS ORDERED: FLUTICASONE/SALMETEROL 100 MCG/50 MCG DISKUS IH SCH (10:00)
[2022-03-30] MEDS ORDERED: HYDROCHLOROTHIAZIDE 25 MG TABLET (FP) PO SCH (10:00)
[2022-03-30] MEDS: FLUTICASONE/UMECLIDIN/VILANTER(200-62.5-25 TRELEGY ELLIPTA) INAHLER IH SCH (14:03)
[2022-03-30] MEDS: CEFTRIAXONE 1 GM in DEXTROSE 5%-WATER - 50 ML IVPB SCH (15:52)
[2022-03-30] MEDS ORDERED: MENTHOL/PHENOL 1 EACH UD MM PRN (20:34)
[2022-03-30] MEDS ORDERED: ATORVASTATIN CA 20 MG TABLET (FP) PO SCH (22:00)
[2022-03-30] MEDS: BENZOCAINE/MENTHOL (CHLORASEPTIC ) LOZENGE MM PRN (22:19)
[2022-03-31] MEDS: methylPREDNISolone NA SUCC 40 MG/1 ML VIAL IVPUSH SCH ×3 (02:13→17:49)
[2022-03-31] MEDS: BENZOCAINE/MENTHOL (CHLORASEPTIC ) LOZENGE MM PRN (06:43)
[2022-03-31 09:08] LABS: HEMATOCRIT 41.1 % (32.4-45.2); HEMOGLOBIN 13.2 GM/dL (10.7-15.3); MCHC 32.1 g/dl (32.0-36.0); MEAN CELL VOLUME 87.2 fl (80-96); MEAN PLT VOLUME 8.8 fl (7.5-11.1); PLATELET COUNT 341 10^3/uL (134-434); RBC 4.71 M/mm3 (3.60-5.2); RDW 13.4 % (11.6-15.6); WHITE BLOOD COUNT 21.5 K/mm3 (4.0-10.0)
[2022-03-31] MEDS: LISINOPRIL 10 MG TABLET PO SCH (09:21)
[2022-03-31] MEDS: ASPIRIN COATED 81 MG TABLET.EC PO SCH (09:21)
[2022-03-31] MEDS: CEFTRIAXONE 1 GM in DEXTROSE 5%-WATER - 50 ML IVPB SCH (09:21)
[2022-03-31] MEDS: ENOXAPARIN NA (PORCINE) 40 MG/0.4 ML DISP.SYRIN SQ SCH (09:21)
[2022-03-31] MEDS: FLUTICASONE/UMECLIDIN/VILANTER(200-62.5-25 TRELEGY ELLIPTA) INAHLER IH SCH (09:29)
[2022-03-31 09:30] LABS: ALBUMIN 3.4 g/dl (3.4-5.0); BLOOD UREA NITROGEN 17.3 mg/dL (7-18); CALCIUM 9.5 mg/dL (8.5-10.1)
[2022-03-31 09:35] LABS: BILIRUBIN,TOTAL 0.3 mg/dL (0.2-1); TOT PROT 6.6 g/dl (6.4-8.2)
[2022-03-31] MEDS ORDERED: PANTOPRAZOLE 20 MG TABLET PO SCH (10:00)
[2022-03-31] MEDS ORDERED: ACETAMINOPHEN 325 MG TABLET (FP) PO PRN (20:00)
[2022-03-31] MEDS ORDERED: ALBUTEROL SO4 0.083% IH SOL 2.5 MG/3 ML VIAL.NEB. NEB PRN (20:00)
[2022-03-31] MEDS ORDERED: ZOLPIDEM TARTRATE 5 MG TABLET PO PRN (20:00)
[2022-03-31] MEDS ORDERED: ATORVASTATIN CA 20 MG TABLET (FP) PO SCH (22:00)
[2022-04-01] MEDS ORDERED: methylPREDNISolone NA SUCC 40 MG/1 ML VIAL IVPUSH SCH (02:00)
[2022-04-01] MEDS: CEFTRIAXONE 1 GM in DEXTROSE 5%-WATER - 50 ML IVPB SCH (09:44)
[2022-04-01] MEDS: FLUTICASONE/UMECLIDIN/VILANTER(200-62.5-25 TRELEGY ELLIPTA) INAHLER IH SCH (09:47)
[2022-04-01] MEDS ORDERED: predniSONE 20 MG TABLET (UD) PO SCH (10:00)
[2022-04-01] MEDS ORDERED: PANTOPRAZOLE 20 MG TABLET PO SCH (10:00)
[2022-04-01] MEDS ORDERED: ENOXAPARIN NA (PORCINE) 40 MG/0.4 ML DISP.SYRIN SQ SCH (10:00)
[2022-04-01] MEDS ORDERED: LISINOPRIL 20 MG TABLET PO SCH (10:00)
[2022-04-01] MEDS ORDERED: ASPIRIN COATED 81 MG TABLET.EC PO SCH (10:00)
[2022-04-01 10:09] VITALS: BP 142/84; PULSE 96; RESP 20; TEMP 97.9
== END 2022-04-01 12:00 | disposition home or self-care (01) | DRG 191 ==
LOC: JER 20:08 → JERBED 03-30 02:14 → J4W 03-30 07:02 → OBSVTOIN 03-30 08:30 → J7W 03-30 12:27
PROVIDERS: ADMIT Internal Medicine; ATTEND Internal Medicine
DX: J43.9 Emphysema, unspecified (principal); J96.11 Chronic respiratory failure with hypoxia; I10 Essential (primary) hypertension; E78.5 Hyperlipidemia, unspecified; I25.10 Atherosclerotic heart disease of native coronary artery without angina pectoris; K21.9 Gastro-esophageal reflux disease without esophagitis
CPT/HCPCS: 0241U-QW; 36415; 71045-TC-FY; 71250-TC; 80048; 80053; 84484; 85025; 85027; 85379; 93005; 93010; 93306-TC; 99285-25; G0378

== ENCOUNTER 2022-05-21 10:17 | Inpatient (IN) | payer OTHER ==
[2022-05-21 10:48] VITALS: BMI 27.4
[2022-05-21] MEDS ORDERED: SODIUM CHLORIDE 0.9% 500 ML INFUS.BAG IV ONE ×2 (12:10→15:56)
[2022-05-21] MEDS ORDERED: methylPREDNISolone NA SUCC 125 MG/2 ML VIAL IVPB ONE (12:11)
[2022-05-21] MEDS ORDERED: methylPREDNISolone NA SUCC 125 MG/2 ML VIAL ONE (12:30)
[2022-05-21] MEDS ORDERED: ALBUTEROL SO4 2.5/IPRATROPIUM 0.5 INH SOL 3 ML VIAL.NEB. NEB ONE ×2 (12:30→12:37)
[2022-05-21 12:35] LABS: VENOUS BASE EXCESS -2.8 mmol/L (-2-2); VENOUS O2 SATURATION 30.7 % (70-80); VENOUS PH 7.35 (7.310-7.410)
[2022-05-21] MEDS: ALBUTEROL SO4 2.5/IPRATROPIUM 0.5 INH SOL 3 ML VIAL.NEB. NEB SCH ×3 (12:36→13:03)
[2022-05-21 12:48] LABS: BASO % 0.9 % (0-2.0); EOS % 0.1 % (0-4.5); HEMATOCRIT 46.6 % (32.4-45.2); HEMOGLOBIN 15.2 GM/dL (10.7-15.3); LYMPH % 21.5 % (8-40); MCH 28.5 pg (25.7-33.7); MCHC 32.6 g/dl (32.0-36.0); MEAN CELL VOLUME 87.3 fl (80-96); NEUT % 61.5 % (42.8-82.8); PLATELET COUNT 265 10^3/uL (134-434); RBC 5.34 M/mm3 (3.60-5.2); RDW 15.3 % (11.6-15.6); WHITE BLOOD COUNT 4.9 K/mm3 (4.0-10.0)
[2022-05-21 13:10] LABS: CALCIUM 9.6 mg/dL (8.5-10.1)
[2022-05-21 13:12] LABS: ALBUMIN 3.8 g/dl (3.4-5.0)
[2022-05-21 13:14] LABS: CREATININE 1.1 mg/dL (0.55-1.3)
[2022-05-21 13:15] LABS: BILIRUBIN,TOTAL 0.3 mg/dL (0.2-1)
[2022-05-21] MEDS ORDERED: OSELTAMIVIR PHOSPHATE 75 MG CAPSULE PO ONE (13:42)
[2022-05-21] MEDS ORDERED: OSELTAMIVIR PHOSPHATE 75 MG CAPSULE ONE (13:49)
[2022-05-21 15:16] LABS: MAGNESIUM 2.2 mg/dL (1.8-2.4)
[2022-05-21] MEDS ORDERED: CEFTRIAXONE 1 GM in DEXTROSE 5%-WATER - 100 ML IVPB ONE (15:41)
[2022-05-21] MEDS ORDERED: CEFTRIAXONE 1 GM/50 ML BAG ONE (15:43)
[2022-05-22] MEDS ORDERED: ALBUTEROL SO4 2.5/IPRATROPIUM 0.5 INH SOL 3 ML VIAL.NEB. NEB PRN (01:31)
[2022-05-22] MEDS ORDERED: methylPREDNISolone NA SUCC 40 MG/1 ML VIAL ONE ×2 (02:04→10:05)
[2022-05-22] MEDS ORDERED: ALBUTEROL SO4 2.5/IPRATROPIUM 0.5 INH SOL 3 ML VIAL.NEB. NEB ONE (02:04)
[2022-05-22] MEDS: methylPREDNISolone NA SUCC 40 MG/1 ML VIAL IVPUSH SCH ×2 (02:14→10:06)
[2022-05-22] MEDS ORDERED: MAG HYDROX/AL HYDROX/SIMETH 30 ML UNIT-DOSE CUP PO PRN (03:00)
[2022-05-22] MEDS ORDERED: ZOLPIDEM TARTRATE 5 MG TABLET PO PRN (05:36)
[2022-05-22] MEDS ORDERED: LISINOPRIL 20 MG TABLET PO SCH (10:00)
[2022-05-22] MEDS ORDERED: HYDROCHLOROTHIAZIDE 25 MG TABLET (FP) PO SCH (10:00)
[2022-05-22] MEDS ORDERED: ASPIRIN COATED 81 MG TABLET.EC PO SCH (10:00)
[2022-05-22] MEDS ORDERED: TRIAMCINOLONE ACET 0.025% CREAM 15 GM TUBE TP SCH (10:00)
[2022-05-22] MEDS ORDERED: FLUTICASONE/SALMETEROL 100 MCG/50 MCG DISKUS IH SCH (10:00)
[2022-05-22] MEDS ORDERED: OSELTAMIVIR PHOSPHATE 30 MG CAPSULE PO SCH (10:00)
[2022-05-22] MEDS ORDERED: PANTOPRAZOLE 20 MG TABLET PO SCH (10:00)
[2022-05-22] MEDS ORDERED: FLUTICASONE/UMECLIDIN/VILANTER(200-62.5-25 TRELEGY ELLIPTA) INAHLER IH SCH (10:00)
[2022-05-22] MEDS ORDERED: ASPIRIN COATED 81 MG TABLET.EC ONE (10:04)
[2022-05-22] MEDS ORDERED: PANTOPRAZOLE 20 MG TABLET PO ONE (10:04)
[2022-05-22] MEDS ORDERED: HYDROCHLOROTHIAZIDE 25 MG TABLET (FP) ONE (10:04)
[2022-05-22] MEDS ORDERED: LISINOPRIL 20 MG TABLET ONE (10:05)
[2022-05-22 13:48] LABS: BASO % 0.2 % (0-2.0); HEMATOCRIT 45.2 % (32.4-45.2); HEMOGLOBIN 14.5 GM/dL (10.7-15.3); LYMPH % 7.2 % (8-40); MCH 28.2 pg (25.7-33.7); MCHC 32.2 g/dl (32.0-36.0); MEAN CELL VOLUME 87.5 fl (80-96); MEAN PLT VOLUME 8.8 fl (7.5-11.1); MONO % 6.6 % (3.8-10.2); PLATELET COUNT 301 10^3/uL (134-434); RBC 5.16 M/mm3 (3.60-5.2); WHITE BLOOD COUNT 6.1 K/mm3 (4.0-10.0)
[2022-05-22 14:11] LABS: BLOOD UREA NITROGEN 20.4 mg/dL (7-18); CALCIUM 9.2 mg/dL (8.5-10.1)
[2022-05-22 14:15] LABS: CREATININE 1.2 mg/dL (0.55-1.3)
[2022-05-22 14:25] VITALS: RESP 16; TEMP 98.1
[2022-05-22 18:02] VITALS: BP 135/78; PULSE 16
[2022-05-22] MEDS ORDERED: ATORVASTATIN CA 20 MG TABLET (FP) PO SCH (22:00)
== END 2022-05-22 18:37 | disposition left against medical advice (07) | DRG 194 ==
LOC: JER 10:17 → JERBED 13:38 → OBSVTOIN 05-22 08:36
PROVIDERS: ADMIT Internal Medicine; ATTEND Internal Medicine
DX: J10.1 Influenza due to other identified influenza virus with other respiratory manifestations (principal); I24.8 Other forms of acute ischemic heart disease; J98.11 Atelectasis; J43.9 Emphysema, unspecified; K21.9 Gastro-esophageal reflux disease without esophagitis; I25.10 Atherosclerotic heart disease of native coronary artery without angina pectoris; I10 Essential (primary) hypertension; E78.5 Hyperlipidemia, unspecified; F41.9 Anxiety disorder, unspecified; M79.10 Myalgia, unspecified site; R00.0 Tachycardia, unspecified; Z99.81 Dependence on supplemental oxygen
CPT/HCPCS: 0241U-QW; 36415; 71046-TC-FY; 80048; 80053; 82550; 82803; 83735; 84443; 84484; 85025; 86850; 86900; 86901; 93005; 93010; 99285-25; G0378

== ENCOUNTER 2023-01-17 11:35 | Observation (INO) | payer OTHER ==
[2023-01-17 11:43] VITALS: BMI 27.4
[2023-01-17 12:52] LABS: HEMATOCRIT 44.9 % (32.4-45.2); HEMOGLOBIN 15.3 GM/dL (10.7-15.3); MCH 29.9 pg (25.7-33.7); MEAN CELL VOLUME 87.9 fl (80-96); PLATELET COUNT 295 10^3/uL (134-434); RDW 14.1 % (11.6-15.6); WHITE BLOOD COUNT 13.5 K/mm3 (4.0-10.0)
[2023-01-17 12:57] LABS: EPI CELLS >36 /uL (0-25.1); HYALINE CASTS 2 /uL (0-3.1); URINE APPEARANCE CLEAR; URINE BACTERIA 11 /uL (0-1359); URINE BILIRUBIN NEGATIVE (NEGATIVE); URINE COLOR YELLOW; URINE GLUCOSE (UA) NEGATIVE (NEGATIVE); URINE KETONE 2+ (NEGATIVE); URINE LEUK ESTERASE NEGATIVE (NEGATIVE); URINE NITRITE NEGATIVE (NEGATIVE); URINE PROTEIN 1+ (NEGATIVE); URINE RBC 129 /uL (0-23.9); URINE UROBILINOGEN 0.2 mg/dL (0.2-1.0); URINE WBC 7 /uL (0-25.8)
[2023-01-17] MEDS ORDERED: ACETAMINOPHEN 1000 MG/100 ML BAG IVPB ONE (13:05)
[2023-01-17] MEDS ORDERED: ONDANSETRON 4 MG/2 ML VIAL IVPUSH ONE (13:05)
[2023-01-17 13:13] LABS: POTASSIUM 4.9 mmol/L (3.5-5.1)
[2023-01-17 13:14] LABS: ANISOCYTOSIS 0; HELMET CELLS 0; HOWELL-JOLLY BODIES 0; MACROCYTOSIS 0; OVALOCYTE 0; ROULEAU 0; SICKELED CELLS 0; TARGET CELLS 0; TEAR DROP CELLS 0; TOXIC GRANULATION 0
[2023-01-17 13:15] LABS: CALCIUM 9.2 mg/dL (8.5-10.1)
[2023-01-17 13:16] LABS: ALBUMIN 3.9 g/dl (3.4-5.0); BLOOD UREA NITROGEN 18.5 mg/dL (7-18)
[2023-01-17 13:19] LABS: CREATININE 1.2 mg/dL (0.55-1.3)
[2023-01-17 13:20] LABS: BILIRUBIN,TOTAL 0.7 mg/dL (0.2-1)
[2023-01-17 13:21] LABS: TOT PROT 7.2 g/dl (6.4-8.2)
[2023-01-17] MEDS ORDERED: ACETAMINOPHEN INJECTION 100 ML IVPB ONE (13:35)
[2023-01-17] MEDS ORDERED: ONDANSETRON 4 MG/2 ML VIAL ONE (13:35)
[2023-01-17] MEDS ORDERED: LACTATED RINGERS SOLUTION 1000 ML INFUS.BAG IV ONE (13:41)
[2023-01-17 13:51] LABS: INR 1.11 (0.83-1.09); PROTHROMBIN TIME (PATIENT) 12.9 SEC (9.7-13.0)
[2023-01-17] MEDS ORDERED: ACETAMINOPHEN 1000 MG/100 ML BAG IVPB PRN (16:33)
[2023-01-17] MEDS ORDERED: ONDANSETRON 4 MG/2 ML VIAL IVPUSH PRN (16:33)
[2023-01-17] MEDS ORDERED: SODIUM CHLORIDE 0.45% 1,000 ML IV SCH (16:45)
[2023-01-17] MEDS ORDERED: ZOLPIDEM TARTRATE 5 MG TABLET PO PRN (16:45)
[2023-01-17] MEDS ORDERED: ACETAMINOPHEN 325 MG TABLET (FP) ONE (17:49)
[2023-01-17] MEDS ORDERED: CEFTRIAXONE 2 GM in DEXTROSE 5%-WATER 100 ML IVPB SCH (18:30)
[2023-01-17] MEDS ORDERED: CEFTRIAXONE 2 GM/100 ML BAG IVPB ONE (19:01)
[2023-01-17] MEDS ORDERED: ATORVASTATIN CA 20 MG TABLET (FP) PO SCH (22:00)
[2023-01-17] MEDS ORDERED: ATORVASTATIN CA 20 MG TABLET (FP) ONE (22:55)
[2023-01-17] MEDS ORDERED: morphine CARPU-JECT 2 MG/1 ML DISP.SYRIN IVPUSH ONE (23:07)
[2023-01-18 07:46] LABS: BASO % 0.3 % (0-2.0); EOS % 0.1 % (0-4.5); HEMATOCRIT 38.4 % (32.4-45.2); HEMOGLOBIN 13.1 GM/dL (10.7-15.3); MCH 29.9 pg (25.7-33.7); MCHC 34.2 g/dl (32.0-36.0); MEAN CELL VOLUME 87.3 fl (80-96); MEAN PLT VOLUME 8.8 fl (7.5-11.1); MONO % 7.4 % (3.8-10.2); NEUT % 83.2 % (42.8-82.8); PLATELET COUNT 247 10^3/uL (134-434); WHITE BLOOD COUNT 11.7 K/mm3 (4.0-10.0)
[2023-01-18 08:05] LABS: POTASSIUM 3.6 mmol/L (3.5-5.1)
[2023-01-18 08:11] LABS: BLOOD UREA NITROGEN 14.1 mg/dL (7-18); CALCIUM 8.1 mg/dL (8.5-10.1); MAGNESIUM 1.6 mg/dL (1.8-2.4)
[2023-01-18 08:14] LABS: CREATININE 1.1 mg/dL (0.55-1.3)
[2023-01-18 08:15] LABS: BILIRUBIN,TOTAL 0.7 mg/dL (0.2-1); TOT PROT 5.6 g/dl (6.4-8.2)
[2023-01-18 08:32] LABS: ALBUMIN 3.1 g/dl (3.4-5.0)
[2023-01-18] MEDS ORDERED: ALBUTEROL SO4 2.5/IPRATROPIUM 0.5 INH SOL 3 ML VIAL.NEB. NEB PRN (08:37)
[2023-01-18] MEDS ORDERED: ACETAMINOPHEN 1000 MG/100 ML BAG IVPB PRN (08:38)
[2023-01-18] MEDS ORDERED: METOPROLOL TARTRATE 5 MG/5 ML VIAL IVPUSH PRN (08:48)
[2023-01-18] MEDS ORDERED: SODIUM CHLORIDE 0.45% 1,000 ML IV SCH (08:48)
[2023-01-18] MEDS ORDERED: ONDANSETRON 4 MG/2 ML VIAL IVPUSH PRN (08:48)
[2023-01-18] MEDS ORDERED: ZOLPIDEM TARTRATE 5 MG TABLET PO PRN ×2 (08:48→18:32)
[2023-01-18] MEDS: LISINOPRIL 20 MG TABLET PO SCH (09:12)
[2023-01-18] MEDS: PANTOPRAZOLE 20 MG TABLET PO SCH (09:12)
[2023-01-18] MEDS ORDERED: CEFTRIAXONE 2 GM in DEXTROSE 5%-WATER 100 ML IVPB SCH (10:00)
[2023-01-18] MEDS ORDERED: LISINOPRIL 20 MG TABLET PO SCH (10:00)
[2023-01-18] MEDS ORDERED: PANTOPRAZOLE 20 MG TABLET PO SCH (10:00)
[2023-01-18] MEDS ORDERED: FLUTICASONE/UMECLIDIN/VILANTER(200-62.5-25 TRELEGY ELLIPTA) INAHLER IH SCH ×2 (10:00)
[2023-01-18] MEDS ORDERED: methylPREDNISolone NA SUCC 40 MG/1 ML VIAL IVPUSH SCH (10:30)
[2023-01-18] MEDS ORDERED: TAMSULOSIN HCL 0.4 MG CAP PO ONE (12:00)
[2023-01-18] MEDS: FLUTICASONE/UMECLIDIN/VILANTER(200-62.5-25 TRELEGY ELLIPTA) INAHLER IH SCH (12:24)
[2023-01-18] MEDS ORDERED: ATORVASTATIN CA 20 MG TABLET (FP) PO SCH (22:00)
[2023-01-19 05:18] VITALS: RESP 19
[2023-01-19 06:44] VITALS: BP 144/60; PULSE 88; TEMP 98.1
[2023-01-19] MEDS ORDERED: TAMSULOSIN HCL 0.4 MG CAP PO SCH (08:30)
[2023-01-19] MEDS ORDERED: ACETAMINOPHEN 325 MG TABLET (FP) PO PRN (09:03)
[2023-01-19] MEDS: PANTOPRAZOLE 20 MG TABLET PO SCH (09:04)
[2023-01-19] MEDS: LISINOPRIL 20 MG TABLET PO SCH (09:04)
[2023-01-19] MEDS: FLUTICASONE/UMECLIDIN/VILANTER(200-62.5-25 TRELEGY ELLIPTA) INAHLER IH SCH (09:22)
== END 2023-01-19 09:30 | disposition left against medical advice (07) ==
LOC: JER 11:35 → JERBED 15:25 → J8W 01-18 00:27
PROVIDERS: ADMIT Internal Medicine; ATTEND Nurse Practitioner Acute Care
PROC: 3E033NZ Introduction of Analgesics, Hypnotics, Sedatives into Peripheral Vein, Percutaneous Approach (ICD-10-PCS; principal; 2023-01-17)
PROC: 3E03329 Introduction of Other Anti-infective into Peripheral Vein, Percutaneous Approach (ICD-10-PCS; 2023-01-17)
PROC: 3E0337Z Introduction of Electrolytic and Water Balance Substance into Peripheral Vein, Percutaneous Approach (ICD-10-PCS; 2023-01-17)
PROC: 3E0337Z Introduction of Electrolytic and Water Balance Substance into Peripheral Vein, Percutaneous Approach (ICD-10-PCS; 2023-01-17)
PROC: 3E033NZ Introduction of Analgesics, Hypnotics, Sedatives into Peripheral Vein, Percutaneous Approach (ICD-10-PCS; 2023-01-17)
PROC: 3E033GC Introduction of Other Therapeutic Substance into Peripheral Vein, Percutaneous Approach (ICD-10-PCS; 2023-01-17)
DX: N13.9 Obstructive and reflux uropathy, unspecified (principal); N20.0 Calculus of kidney; J44.1 Chronic obstructive pulmonary disease with (acute) exacerbation; E78.5 Hyperlipidemia, unspecified; I10 Essential (primary) hypertension; Z86.79 Personal history of other diseases of the circulatory system; K21.9 Gastro-esophageal reflux disease without esophagitis; Z99.81 Dependence on supplemental oxygen; Z87.891 Personal history of nicotine dependence
CPT/HCPCS: 36415; 71045-TC-FY; 74176-TC; 74178-TC; 80053; 81003; 83690; 83735; 85025; 85610; 85730; 86850; 86900; 86901; 87040; 87086; 93005; 93010; 96361; 96365; 96366; 96375; 96376; 99285-25; G0378

== ENCOUNTER 2023-06-08 13:14 | Inpatient (IN) | payer OTHER ==
[2023-06-08 13:33] VITALS: BMI 27.4
[2023-06-08] MEDS ORDERED: ALBUTEROL SO4 2.5/IPRATROPIUM 0.5 INH SOL 3 ML VIAL.NEB. NEB ONE ×2 (13:39→15:03)
[2023-06-08] MEDS ORDERED: ALBUTEROL SO4 2.5/IPRATROPIUM 0.5 INH SOL 3 ML VIAL.NEB. NEB STA (13:44)
[2023-06-08] MEDS ORDERED: methylPREDNISolone NA SUCC 1000 MG/8 ML VIAL IVPB ONE (13:45)
[2023-06-08] MEDS ORDERED: ACETAMINOPHEN 1000 MG/100 ML BAG IVPB ONE (13:46)
[2023-06-08] MEDS ORDERED: methylPREDNISolone NA SUCC 125 MG/2 ML VIAL ONE (13:51)
[2023-06-08] MEDS ORDERED: ACETAMINOPHEN INJECTION 100 ML IVPB ONE (13:51)
[2023-06-08] MEDS: SODIUM CHLORIDE 0.9% 1000 ML INFUS.BAG IV SCH (14:36)
[2023-06-08 14:37] LABS: HEMATOCRIT 42.7 % (32.4-45.2); HEMOGLOBIN 14.3 GM/dL (10.7-15.3); MCH 30.3 pg (25.7-33.7); MCHC 33.4 g/dl (32.0-36.0); MEAN CELL VOLUME 90.6 fl (80-96); MEAN PLT VOLUME 9.1 fl (7.5-11.1); PLATELET COUNT 267 10^3/uL (134-434); RBC 4.72 M/mm3 (3.60-5.2); RDW 13.9 % (11.6-15.6); WHITE BLOOD COUNT 26.1 K/mm3 (4.0-10.0)
[2023-06-08 14:48] LABS: INR 1.27 (0.83-1.09); PROTHROMBIN TIME (PATIENT) 14.7 SEC (9.7-13.0)
[2023-06-08 14:50] LABS: ACTIVATED PTT 26.9 SECONDS (25.2-36.5)
[2023-06-08] MEDS ORDERED: VANCOMYCIN 1,000 MG in DEXTROSE 5%-WATER - 250 ML IVPB ONE (14:55)
[2023-06-08] MEDS ORDERED: PIPERACILLIN/TAZOB 3.375 GM 3.375 GM in DEXTROSE 5%-WATER - 50 ML IVPB ONE (14:55)
[2023-06-08] MEDS ORDERED: VANCOMYCIN 1 GRAM (PRE-DOCKED) 1,000 MG/250 ML BAG IVPB ONE (14:59)
[2023-06-08] MEDS ORDERED: PIPERACILLIN/TAZOB 3.375 GM 3.375 GM/50 ML BAG IVPB ONE (14:59)
[2023-06-08 15:15] LABS: POTASSIUM 3.6 mmol/L (3.5-5.1)
[2023-06-08 15:17] LABS: CALCIUM 8.8 mg/dL (8.5-10.1)
[2023-06-08 15:18] LABS: ALBUMIN 3.6 g/dl (3.4-5.0); BLOOD UREA NITROGEN 13.3 mg/dL (7-18)
[2023-06-08 15:21] LABS: CREATININE 1.1 mg/dL (0.55-1.3)
[2023-06-08 15:30] LABS: ANISOCYTOSIS 1+; MACROCYTOSIS 0
[2023-06-08 15:32] LABS: LACTIC ACID 3.1 mmol/L (0.4-2.0)
[2023-06-08 16:11] LABS: BILIRUBIN,TOTAL 1.1 mg/dL (0.2-1)
[2023-06-08] MEDS ORDERED: ACETAMINOPHEN 1000 MG/100 ML BAG IVPB PRN (18:43)
[2023-06-08] MEDS ORDERED: SODIUM CHLORIDE 500 ML IV STA (18:45)
[2023-06-08] MEDS ORDERED: ENOXAPARIN NA (PORCINE) 40 MG/0.4 ML DISP.SYRIN SQ ONE (19:16)
[2023-06-08] MEDS: ENOXAPARIN NA (PORCINE) 40 MG/0.4 ML DISP.SYRIN SQ SCH (19:19)
[2023-06-08] MEDS ORDERED: ACETAMINOPHEN 325 MG TABLET (FP) ONE (19:20)
[2023-06-08] MEDS: ACETAMINOPHEN 325 MG TABLET (FP) PO PRN (19:21)
[2023-06-08] MEDS ORDERED: REMDESIVIR 200 MG in SODIUM CHLORIDE 250 ML IVPB ONE (19:30)
[2023-06-09] MEDS: PIPERACILLIN/TAZOB 3.375 GM 3.375 GM/50 ML BAG IVPB SCH ×2 (01:26→02:03)
[2023-06-09] MEDS ORDERED: PIPERACILLIN/TAZOB 3.375 GM 3.375 GM/50 ML BAG IVPB ONE (01:28)
[2023-06-09] MEDS ORDERED: ZOLPIDEM TARTRATE 5 MG TABLET PO PRN (07:30)
[2023-06-09 07:45] LABS: HEMATOCRIT 36.2 % (32.4-45.2); HEMOGLOBIN 12.4 GM/dL (10.7-15.3); MCH 30.8 pg (25.7-33.7); MCHC 34.4 g/dl (32.0-36.0); MEAN CELL VOLUME 89.6 fl (80-96); MEAN PLT VOLUME 9.1 fl (7.5-11.1); PLATELET COUNT 235 10^3/uL (134-434); RBC 4.04 M/mm3 (3.60-5.2); RDW 14.2 % (11.6-15.6); WHITE BLOOD COUNT 25.5 K/mm3 (4.0-10.0)
[2023-06-09] MEDS ORDERED: LACTATED RINGERS SOLUTION 1,000 ML/1,000 ML INFUS.BAG IV SCH (07:45)
[2023-06-09] MEDS: ALBUTEROL SO4 2.5/IPRATROPIUM 0.5 INH SOL 3 ML VIAL.NEB. NEB SCH ×2 (07:50→11:35)
[2023-06-09 08:46] LABS: ANISOCYTOSIS 2+; MACROCYTOSIS 0
[2023-06-09] MEDS: FLUTICASONE/UMECLIDIN/VILANTER(200-62.5-25 TRELEGY ELLIPTA) INAHLER IH SCH (09:59)
[2023-06-09] MEDS: PANTOPRAZOLE 40 MG TABLET PO SCH (10:00)
[2023-06-09] MEDS: PIPERACILLIN/TAZOB 3.375 GM 3.375 GM in DEXTROSE 5%-WATER - 50 ML IVPB SCH ×2 (10:00→17:06)
[2023-06-09] MEDS: ASPIRIN COATED 81 MG TABLET.EC PO SCH (10:00)
[2023-06-09] MEDS ORDERED: DEXAMETHASONE SOD PHOSPHATE 10 MG/1 ML VIAL IVPUSH SCH (10:00)
[2023-06-09] MEDS: ENOXAPARIN NA (PORCINE) 40 MG/0.4 ML DISP.SYRIN SQ SCH (10:00)
[2023-06-09] MEDS: ACETAMINOPHEN 325 MG TABLET (FP) PO PRN (11:33)
[2023-06-09] MEDS ORDERED: ALBUTEROL SO4 0.083% IH SOL 2.5 MG/3 ML VIAL.NEB. NEB PRN (13:01)
[2023-06-09] MEDS: ALBUTEROL SO4 0.083% IH SOL 2.5 MG/3 ML VIAL.NEB. NEB SCH ×2 (15:10→19:35)
[2023-06-09] MEDS: SODIUM CHLORIDE 0.9% 1000 ML INFUS.BAG IV SCH (15:56)
[2023-06-09] MEDS: methylPREDNISolone NA SUCC 40 MG/1 ML VIAL IVPUSH SCH (17:06)
[2023-06-09] MEDS: REMDESIVIR 100 MG in SODIUM CHLORIDE 250 ML IVPB SCH (22:05)
[2023-06-09] MEDS: ATORVASTATIN CA 20 MG TABLET (FP) PO SCH (22:05)
[2023-06-09] MEDS: ZOLPIDEM TARTRATE 5 MG TABLET PO PRN (22:51)
[2023-06-10] MEDS: PIPERACILLIN/TAZOB 3.375 GM 3.375 GM in DEXTROSE 5%-WATER - 50 ML IVPB SCH ×3 (02:10→17:11)
[2023-06-10] MEDS: methylPREDNISolone NA SUCC 40 MG/1 ML VIAL IVPUSH SCH ×3 (02:10→21:59)
[2023-06-10] MEDS: ALBUTEROL SO4 0.083% IH SOL 2.5 MG/3 ML VIAL.NEB. NEB SCH ×3 (07:44→20:16)
[2023-06-10 08:32] LABS: HEMATOCRIT 35.1 % (32.4-45.2); HEMOGLOBIN 11.5 GM/dL (10.7-15.3); MCH 29.3 pg (25.7-33.7); MCHC 32.8 g/dl (32.0-36.0); MEAN CELL VOLUME 89.5 fl (80-96); MEAN PLT VOLUME 8.9 fl (7.5-11.1); PLATELET COUNT 242 10^3/uL (134-434); RBC 3.92 M/mm3 (3.60-5.2); RDW 14.3 % (11.6-15.6); WHITE BLOOD COUNT 19.5 K/mm3 (4.0-10.0)
[2023-06-10 08:58] LABS: POTASSIUM 3.4 mmol/L (3.5-5.1)
[2023-06-10 09:05] LABS: CALCIUM 8.1 mg/dL (8.5-10.1)
[2023-06-10 09:06] LABS: BLOOD UREA NITROGEN 20.6 mg/dL (7-18); MAGNESIUM 1.6 mg/dL (1.8-2.4)
[2023-06-10 09:07] LABS: CREATININE 0.8 mg/dL (0.55-1.3); PHOSPHOROUS 2.8 mg/dL (2.5-4.9)
[2023-06-10 09:09] LABS: BILIRUBIN,TOTAL 0.3 mg/dL (0.2-1); TOT PROT 5.4 g/dl (6.4-8.2)
[2023-06-10 09:30] LABS: ALBUMIN 2.7 g/dl (3.4-5.0)
[2023-06-10 09:43] LABS: ANISOCYTOSIS 0; HELMET CELLS 0; HOWELL-JOLLY BODIES 0; MACROCYTOSIS 0; OVALOCYTE 0; ROULEAU 0; SICKELED CELLS 0; TARGET CELLS 0; TEAR DROP CELLS 0; TOXIC GRANULATION 0
[2023-06-10] MEDS: guaiFENesin/D-METHORPHAN HB 10 ML UNIT-DOSE CUPS PO PRN ×2 (09:49→17:11)
[2023-06-10] MEDS: ACETAMINOPHEN 325 MG TABLET (FP) PO PRN (09:49)
[2023-06-10] MEDS: ENOXAPARIN NA (PORCINE) 40 MG/0.4 ML DISP.SYRIN SQ SCH (09:53)
[2023-06-10] MEDS: PANTOPRAZOLE 40 MG TABLET PO SCH (09:53)
[2023-06-10] MEDS: ASPIRIN COATED 81 MG TABLET.EC PO SCH (09:53)
[2023-06-10] MEDS: FLUTICASONE/UMECLIDIN/VILANTER(200-62.5-25 TRELEGY ELLIPTA) INAHLER IH SCH (09:58)
[2023-06-10] MEDS ORDERED: POTASSIUM CHLORIDE ORAL LIQUID 20 MEQ/15 ML PO ONE (10:15)
[2023-06-10] MEDS ORDERED: MAGNESIUM 2GM/50ML STERILE WATER IVPB IVPB ONE (10:15)
[2023-06-10] MEDS: REMDESIVIR 100 MG in SODIUM CHLORIDE 250 ML IVPB SCH (21:57)
[2023-06-10] MEDS: ATORVASTATIN CA 20 MG TABLET (FP) PO SCH (21:58)
[2023-06-10] MEDS: ZOLPIDEM TARTRATE 5 MG TABLET PO PRN (21:59)
[2023-06-11] MEDS: PIPERACILLIN/TAZOB 3.375 GM 3.375 GM in DEXTROSE 5%-WATER - 50 ML IVPB SCH ×3 (01:15→17:52)
[2023-06-11 07:38] LABS: POTASSIUM 3.6 mmol/L (3.5-5.1)
[2023-06-11 07:39] LABS: CALCIUM 8.1 mg/dL (8.5-10.1)
[2023-06-11 07:40] LABS: BLOOD UREA NITROGEN 15.6 mg/dL (7-18)
[2023-06-11 07:43] LABS: CREATININE 0.9 mg/dL (0.55-1.3); PHOSPHOROUS 3.1 mg/dL (2.5-4.9)
[2023-06-11 08:02] LABS: HEMATOCRIT 35.3 % (32.4-45.2); HEMOGLOBIN 11.6 GM/dL (10.7-15.3); MCH 29.2 pg (25.7-33.7); MCHC 32.8 g/dl (32.0-36.0); MEAN CELL VOLUME 89.2 fl (80-96); MEAN PLT VOLUME 8.9 fl (7.5-11.1); PLATELET COUNT 276 10^3/uL (134-434); RBC 3.95 M/mm3 (3.60-5.2); RDW 14.7 % (11.6-15.6)
[2023-06-11] MEDS: ALBUTEROL SO4 0.083% IH SOL 2.5 MG/3 ML VIAL.NEB. NEB SCH ×3 (08:26→20:05)
[2023-06-11] MEDS: ASPIRIN COATED 81 MG TABLET.EC PO SCH (09:32)
[2023-06-11] MEDS: ENOXAPARIN NA (PORCINE) 40 MG/0.4 ML DISP.SYRIN SQ SCH (09:32)
[2023-06-11] MEDS: methylPREDNISolone NA SUCC 40 MG/1 ML VIAL IVPUSH SCH ×2 (09:32→17:52)
[2023-06-11] MEDS: ACETAMINOPHEN 325 MG TABLET (FP) PO PRN (09:32)
[2023-06-11] MEDS: PANTOPRAZOLE 40 MG TABLET PO SCH (09:32)
[2023-06-11] MEDS: FLUTICASONE/UMECLIDIN/VILANTER(200-62.5-25 TRELEGY ELLIPTA) INAHLER IH SCH (09:33)
[2023-06-11 09:37] LABS: ANISOCYTOSIS 2+; MACROCYTOSIS 0
[2023-06-11] MEDS: REMDESIVIR 100 MG in SODIUM CHLORIDE 250 ML IVPB SCH (18:44)
[2023-06-11] MEDS: ZOLPIDEM TARTRATE 5 MG TABLET PO PRN (21:56)
[2023-06-11] MEDS: ATORVASTATIN CA 20 MG TABLET (FP) PO SCH (21:56)
[2023-06-12] MEDS: methylPREDNISolone NA SUCC 40 MG/1 ML VIAL IVPUSH SCH ×3 (02:19→18:08)
[2023-06-12] MEDS: PIPERACILLIN/TAZOB 3.375 GM 3.375 GM in DEXTROSE 5%-WATER - 50 ML IVPB SCH ×3 (02:19→18:08)
[2023-06-12] MEDS: ALBUTEROL SO4 0.083% IH SOL 2.5 MG/3 ML VIAL.NEB. NEB SCH ×3 (07:20→20:00)
[2023-06-12] MEDS: PANTOPRAZOLE 40 MG TABLET PO SCH (10:45)
[2023-06-12] MEDS: ASPIRIN COATED 81 MG TABLET.EC PO SCH (10:46)
[2023-06-12] MEDS: FLUTICASONE/UMECLIDIN/VILANTER(200-62.5-25 TRELEGY ELLIPTA) INAHLER IH SCH (10:46)
[2023-06-12] MEDS: ENOXAPARIN NA (PORCINE) 40 MG/0.4 ML DISP.SYRIN SQ SCH (10:46)
[2023-06-12] MEDS: REMDESIVIR 100 MG in SODIUM CHLORIDE 250 ML IVPB SCH (18:09)
[2023-06-12] MEDS: ZOLPIDEM TARTRATE 5 MG TABLET PO PRN (22:20)
[2023-06-12] MEDS: ATORVASTATIN CA 20 MG TABLET (FP) PO SCH (22:20)
[2023-06-13] MEDS: methylPREDNISolone NA SUCC 40 MG/1 ML VIAL IVPUSH SCH ×3 (02:30→21:41)
[2023-06-13] MEDS: PIPERACILLIN/TAZOB 3.375 GM 3.375 GM in DEXTROSE 5%-WATER - 50 ML IVPB SCH ×3 (02:40→18:22)
[2023-06-13 06:53] LABS: HEMATOCRIT 37.1 % (32.4-45.2); HEMOGLOBIN 12.2 GM/dL (10.7-15.3); MCH 29.3 pg (25.7-33.7); MCHC 32.8 g/dl (32.0-36.0); MEAN CELL VOLUME 89.3 fl (80-96); MEAN PLT VOLUME 8.7 fl (7.5-11.1); PLATELET COUNT 290 10^3/uL (134-434); RBC 4.16 M/mm3 (3.60-5.2); RDW 14.8 % (11.6-15.6); WHITE BLOOD COUNT 9.1 K/mm3 (4.0-10.0)
[2023-06-13 07:04] LABS: POTASSIUM 3.5 mmol/L (3.5-5.1)
[2023-06-13 07:10] LABS: CALCIUM 7.9 mg/dL (8.5-10.1)
[2023-06-13 07:11] LABS: ALBUMIN 2.7 g/dl (3.4-5.0); BLOOD UREA NITROGEN 21.1 mg/dL (7-18)
[2023-06-13 07:12] LABS: CREATININE 0.9 mg/dL (0.55-1.3)
[2023-06-13 07:13] LABS: BILIRUBIN,TOTAL 0.3 mg/dL (0.2-1); TOT PROT 5.5 g/dl (6.4-8.2)
[2023-06-13] MEDS: ALBUTEROL SO4 0.083% IH SOL 2.5 MG/3 ML VIAL.NEB. NEB SCH ×3 (08:30→20:00)
[2023-06-13] MEDS ORDERED: ZOLPIDEM TARTRATE 5 MG TABLET PO PRN (10:05)
[2023-06-13] MEDS: PANTOPRAZOLE 40 MG TABLET PO SCH (10:18)
[2023-06-13] MEDS: ASPIRIN COATED 81 MG TABLET.EC PO SCH (10:18)
[2023-06-13] MEDS: ENOXAPARIN NA (PORCINE) 40 MG/0.4 ML DISP.SYRIN SQ SCH (10:19)
[2023-06-13] MEDS: FLUTICASONE/UMECLIDIN/VILANTER(200-62.5-25 TRELEGY ELLIPTA) INAHLER IH SCH (10:19)
[2023-06-13 15:11] VITALS: RESP 20
[2023-06-13] MEDS: guaiFENesin/D-METHORPHAN HB 10 ML UNIT-DOSE CUPS PO PRN (21:41)
[2023-06-13] MEDS: ATORVASTATIN CA 20 MG TABLET (FP) PO SCH (21:42)
[2023-06-14] MEDS: PIPERACILLIN/TAZOB 3.375 GM 3.375 GM in DEXTROSE 5%-WATER - 50 ML IVPB SCH ×2 (02:23→10:57)
[2023-06-14] MEDS: ALBUTEROL SO4 0.083% IH SOL 2.5 MG/3 ML VIAL.NEB. NEB SCH (07:30)
[2023-06-14 10:45] VITALS: BP 146/76; PULSE 90; TEMP 98.1
[2023-06-14] MEDS: ENOXAPARIN NA (PORCINE) 40 MG/0.4 ML DISP.SYRIN SQ SCH (10:57)
[2023-06-14] MEDS: FLUTICASONE/UMECLIDIN/VILANTER(200-62.5-25 TRELEGY ELLIPTA) INAHLER IH SCH (10:58)
[2023-06-14] MEDS: PANTOPRAZOLE 40 MG TABLET PO SCH (10:58)
[2023-06-14] MEDS: methylPREDNISolone NA SUCC 40 MG/1 ML VIAL IVPUSH SCH (10:58)
[2023-06-14] MEDS: ASPIRIN COATED 81 MG TABLET.EC PO SCH (10:58)
== END 2023-06-14 13:41 | disposition home or self-care (01) | DRG 177 ==
LOC: JER 13:14 → JERBED 17:07 → J4W 06-09 02:44
PROVIDERS: ADMIT Internal Medicine; ATTEND Internal Medicine
PROC: XW033E5 Introduction of Remdesivir Anti-infective into Peripheral Vein, Percutaneous Approach, New Technology Group 5 (ICD-10-PCS; principal; 2023-06-08)
DX: U07.1 COVID-19 (principal); J96.21 Acute and chronic respiratory failure with hypoxia; A31.0 Pulmonary mycobacterial infection; J44.1 Chronic obstructive pulmonary disease with (acute) exacerbation; I25.10 Atherosclerotic heart disease of native coronary artery without angina pectoris; E78.5 Hyperlipidemia, unspecified; K21.9 Gastro-esophageal reflux disease without esophagitis; R50.9 Fever, unspecified; R00.0 Tachycardia, unspecified; I10 Essential (primary) hypertension; R91.8 Other nonspecific abnormal finding of lung field; D72.829 Elevated white blood cell count, unspecified; Z99.81 Dependence on supplemental oxygen
CPT/HCPCS: 0241U-QW; 36415; 71045-TC-FY; 74177-TC; 80048; 80053; 83605; 83735; 84100; 84484; 85025; 85027; 85610; 85730; 86140; 86850; 86900; 86901; 87040; 87899; 93005; 93010; 94640; 99285-25; J0248; J1100; Q9967